=== PATIENT | male | born 1935 | race Two or more races ===

== ENCOUNTER → 2017-05-20 | Outpatient (CLI) | payer MEDICARE ==
[~2017-05-20] MED LIST: ALLOPURINOL300 MG PO; DIVALPROEX SOD250 MG PO; FLUOXETINE HCL40 MG PO; FUROSEMIDE40 MG PO; LEVOTHYROXINE50 MCG PO; LEVOTHYROXINE75 MCG PO; LOSARTAN POTASS25 MG; SIMVASTATIN40 MG PO; SINEMET 25-1001 EACH PO
--- NOTE | 2017-05-28 04:13 | Pulmonary Function Test ---
DATE OF STUDY: May 20, 2017 SPIROMETRY: Demonstrates evidence of moderate restriction. FEV1 was 1.54 L or 69% predicted, and FVC was 2.06 L or 64% predicted in the setting of normal FEV1 over FVC ratio. After bronchodilator administration, there was no statistically significant change in spirometry. Borderline loops were limited. LUNG VOLUMES: As performed by nitrogen washout method demonstrated decreased total lung capacity consistent with restriction. The TLC was 4.46 L or 74% predicted. Restrictive effective obesity is suggested with decreased of 15%. ADDITIONAL NOTE: Spirometry with limited effort, which may limit the interpretation of restriction on this test. SUMMARY: Moderate restriction. Mild limitation in technique is noted. Clinical correlation is recommended. Repeat pulmonary function testing may be performed if indicated. Job#: [id number] CT
== END ==
LOC: RESP 08:03
PROVIDERS: ATTEND Internal Medicine Critical Care Medicine
DX: J44.9 Chronic obstructive pulmonary disease, unspecified (principal); R53.1 Weakness; N19 Unspecified kidney failure; E87.70 Fluid overload, unspecified; R09.02 Hypoxemia; H61.22 Impacted cerumen, left ear; E66.9 Obesity, unspecified; G47.33 Obstructive sleep apnea (adult) (pediatric)
CPT/HCPCS: 94060; 94727

== ENCOUNTER 2018-04-02 12:38 | Emergency (ER) | payer MEDICARE ==
[~2018-04-02] VITALS: Ht 165.1 cm; Wt 90.7 kg
--- NOTE | 2018-04-02 14:42 | Diagnostic Imaging Report ---
CERVICAL SPINE X-RAY - 3 VIEWS HISTORY: ^[id number] ^[id number] COMPARISON: None available. FINDINGS: Bones: No acute displaced fracture. Osseous alignment is within normal limits. Joints: Advanced multilevel degenerative changes of the cervical spine. Soft tissues: Soft tissue swelling around the neck. No radiopaque foreign body overlying the neck or airway. IMPRESSION: Diffuse soft tissue swelling along the right and left side of the neck of uncertain etiology. No radiopaque foreign body. Signed by: Dr. Shayy Nick M.D. on 04/02/2018 2:39 PM
--- NOTE | 2018-04-02 15:09 | Diagnostic Imaging Report ---
EXAMINATION: CXR 2 VIEW - HOPD INDICATION: ^[id number] ^[id number] COMPARISON: None FINDINGS: PA and lateral views TUBES and LINES: None. LUNGS: Lungs are well inflated. Bilateral interstitial edema. Bandlike opacities in both lower lobes suggestive of atelectasis. PLEURA: No pleural effusion or pneumothorax. HEART AND MEDIASTINUM: Mild enlargement of the cardiac silhouette. Pulmonary arteries are enlarged and suggestive of pulmonary hypertension. Tortuous thoracic aorta with possible ectasia of the ascending segment. BONES AND SOFT TISSUES: No acute osseous lesion. Soft tissues are unremarkable. UPPER ABDOMEN: No free air under the diaphragm. IMPRESSION: Bilateral interstitial edema. Bibasilar atelectasis. Signed by: Dr. Shayy Nick M.D. on 04/02/2018 3:06 PM
[2018-04-02 15:29] VITALS: BP 142/88
== END 2018-04-02 15:31 | disposition home or self-care (01) ==
LOC: FSED 12:38
DX: J04.0 Acute laryngitis (principal)
CPT/HCPCS: 71046; 72040; 83518; 99283

== ENCOUNTER 2018-08-25 01:10 | Inpatient (IN) | payer MEDICARE ==
[2018-08-25] VITALS (25 sets, daily range): BP systolic 102–203; BP diastolic 49–86
[~2018-08-25] VITALS: Ht 165.1 cm; Wt 90.7 kg
--- NOTE | 2018-08-25 01:10 | NUR ---
SEE CODE SHEET ON CHART.
--- OUTSIDE RECORDS SUMMARY | 2018-08-25 01:13 | XMS REPORT ---
Author Author [facility] Address Unknown Phone Unavailable Care Team Providers Care Receiving Operator Name Role Phone Germán BRAVO Unavailable Unavailable Payers Payer Name Policy Type Policy Number Effective Date Expiration Date Problems This patient has no known problems. Allergies, Adverse Reactions, Alerts Allergy Name Allergy Type Status Severity Reaction(s) Onset Date Inactive Date Treating Clinician Comments No Known Allergies DA Active U 2018-04-16 00:00:00 Medications This patient has no known medications. Results Test Description Test Time Test Comments Text Results Atomic Results Result Comments CBC W/AUTO DIFF 2018-04-19 14:06:00 WHITE BLOOD CELL (test code=WBC) 16.16 x10 3/uL 4.5-11.0 RED BLOOD CELL (test code=RBC) 2.47 x10 6/uL 4.00-5.60 HEMOGLOBIN (test code=HGB) 7.2 g/dL 12.5-16.9 HEMATOCRIT (test code=HCT) 25.9 % 37.5-50.7 MEAN CELL VOLUME (test code=MCV) 104.9 fL 81.0-99.0 MEAN CELL HGB (test code=MCH) 29.1 pg 27.0-33.0 MEAN CELL HGB CONCETRATION (test code=MCHC) 27.8 g/dL 33.0-37.0 RED CELL DISTRIBUTION WIDTH CV (test code=RDW) 15.3 % 11.5-14.5 RED CELL DISTRIBUTION WIDTH SD (test code=RDW-SD) 59.0 fL 37.0-54.0 PLATELET COUNT (test code=PLT) 133 x10 3/uL 150-400 IMMATURE PLATELET FRACTION (test code=IPF) 8.2 % 0.9-11.2 MEAN PLATELET VOLUME (test code=MPV) 13.1 fL 7.0-9.0 MANUAL DIFF REQUIRED (test code=MDIFF) YES WBC [id number] 14:06:00* Test Item Value Reference Range Comments SEGMENTED NEUTROPHILS (test code=SEG) 69.4 % 37-69 LYMPHOCYTE (test code=LYMPH) 27.0 % 23-55 REACTIVE LYMPH (test code=RELYMPH) 1.8 % MONOCYTE (test code=MON) 1.8 % 0-10 POIKILOCYTOSIS (test code=POIK) 1+ ANISOCYTOSIS (test code=ANISO) 2+ OVALOCYTES (test code=OVAL) 1+ PLATELET ESTIMATE (test code=PLTEST) Adequate THOUSAND ADEQUATE PLT.EST.(140-175) PLATELET MORPHOLOGY (test code=PLTMORPH) LARGE PLATELETS CBC W/AUTO [id number] 14:03:00* Test Item Value Reference Range Comments WHITE BLOOD CELL (test code=WBC) 16.16 x10 3/uL 4.5-11.0 RED BLOOD CELL (test code=RBC) 2.47 x10 6/uL 4.00-5.60 HEMOGLOBIN (test code=HGB) 7.2 g/dL 12.5-16.9 HEMATOCRIT (test code=HCT) 25.9 % 37.5-50.7 MEAN CELL VOLUME (test code=MCV) 104.9 fL 81.0-99.0 MEAN CELL HGB (test code=MCH) 29.1 pg 27.0-33.0 MEAN CELL HGB CONCETRATION (test code=MCHC) 27.8 g/dL 33.0-37.0 RED CELL DISTRIBUTION WIDTH CV (test code=RDW) 15.3 % 11.5-14.5 RED CELL DISTRIBUTION WIDTH SD (test code=RDW-SD) 59.0 fL 37.0-54.0 PLATELET COUNT (test code=PLT) 133 x10 3/uL 150-400 IMMATURE PLATELET FRACTION (test code=IPF) 8.2 % 0.9-11.2 MEAN PLATELET VOLUME (test code=MPV) 13.1 fL 7.0-9.0 MANUAL DIFF REQUIRED (test code=MDIFF) YES WBC [id number] 14:03:00* Test Item Value Reference Range Comments ANISOCYTOSIS (test code=ANISO) PLATELET ESTIMATE (test code=PLTEST) THOUSAND ADEQUATE CBC W/AUTO [id number] 14:03:00* Test Item Value Reference Range Comments WHITE BLOOD CELL (test code=WBC) 16.16 x10 3/uL 4.5-11.0 RED BLOOD CELL (test code=RBC) 2.47 x10 6/uL 4.00-5.60 HEMOGLOBIN (test code=HGB) 7.2 g/dL 12.5-16.9 HEMATOCRIT (test code=HCT) 25.9 % 37.5-50.7 MEAN CELL VOLUME (test code=MCV) 104.9 fL 81.0-99.0 MEAN CELL HGB (test code=MCH) 29.1 pg 27.0-33.0 MEAN CELL HGB CONCETRATION (test code=MCHC) 27.8 g/dL 33.0-37.0 RED CELL DISTRIBUTION WIDTH CV (test code=RDW) 15.3 % 11.5-14.5 RED CELL DISTRIBUTION WIDTH SD (test code=RDW-SD) 59.0 fL 37.0-54.0 PLATELET COUNT (test code=PLT) 133 x10 3/uL 150-400 IMMATURE PLATELET FRACTION (test code=IPF) 8.2 % 0.9-11.2 MEAN PLATELET VOLUME (test code=MPV) 13.1 fL 7.0-9.0 MANUAL DIFF REQUIRED (test code=MDIFF) YES WBC [id number] 14:03:00* Test Item Value Reference Range Comments ANISOCYTOSIS (test code=ANISO) PLATELET ESTIMATE (test code=PLTEST) THOUSAND ADEQUATE B-TYPE NATRIURETIC [id number] 12:47:00* Test Item Value Reference Range Comments B-TYPE NATRIURETIC PEPTIDE (test code=BNP) 56.1 PG/ML 0-100 [id number] 12:11:00* Test Item Value Reference Range Comments TROPONIN-I (test code=TROPI) < 0.015 ng/mL 0.000-0.045 Negative: <=0.045 Positive: >=0.046 Correlation with serial results, other cardiac markers andclinical findings is necessary to determine the clinicalsignificance of this result. Results using different methodologies should not be comparedto one another as quantitative results may vary by method. ARTERIAL BLOOD [id number] 11:32:00* Test Item Value Reference Range Comments ARTERIAL BLOOD GAS PH (test code=PHA) 7.320 7.35-7.45 ARTERIAL BLOOD GAS PCO2 (test code=PCO2A) 48.3 mmHg 35-45 ARTERIAL BLOOD GAS PO2 (test code=PO2A) 131 mmHg 80-100 BICARBONATE TOTAL HCO3 (test code=HCO3) 24.9 mmol/L 22.0-26.0 BASE EXCESS (test code=MICHAEL) -1.0 mmol/L -4-4 ABG O2 SATURATION (test code=SATA) 99 % 90-100 FIO2 (test code=FIO2A) 100 % ABG DELIVERY (test code=RUDI) Bipap ABG VENT RESP RATE (test code=RRA) 12 /MIN Performed by certified shotgun shell reprinting unit operator at [facility] ABG TEMPERATURE (test code=TEMPA) 98.6 F ABG SITE (test code=SITEA) R Rad PREDICTED AA GRADIENT (test code=AP) 170 PREDICTED PO2 (test code=OP) 485 a/A RATIO (test code=RATIO) 0.20 TCO2 ARTERIAL (test code=TCO2A) 26 A-A GRADIENT (test code=AAGRADE) 524 - XR CHEST 1 [id number] 10:10:00 FAX: Rhett Mc MD [phone] [place]: St: ADM FAX: Дмитрий Bear MD [phone] FAX: Nasima Beaver MD [phone] Name: ANIKA CELESTIN [facility] : 1935 Age/S: 82/M [address] [place] [address] Unit #: [id number] Loc: [address] [place] [address] Phys: Rhett Resendiz MD Acct: [id number] Dis Date: Status: ADM IN ONE #: [phone] Exam Date: 04/19/2018 1005 FAX #: [phone] Reason: sob EXAMS: CPT CODE: [id number] XR CHEST 1 V [id number] EXAM: CHEST SI NGLE VIEW HISTORY: 82-year-old male with shortness of breath COMPARISON: CT chest 04/17/2018, chest radiograph 04/16/2018 FINDINGS: Persistent elevation of the right hemidiaphragm with mild right basilar opacity. Increased opacity in the left lung base. Mild bilateral interstitial prominence, increased from prior exam. The cardiomediastinal silhouette is stably prominent. Osseous structures are unchanged. IMPRESSION: 1. Bibasilar atelectasis/consolidation, increased in the left lung base. 2. Bilateral interstitial pro minence as can be seen with congestion/edema, or atypical infection. SL: [id number] at 1010 Reported and bill d by: Byron Calderon M.D. CC: Rhett Resendiz MD; Дмитрий Garcia MD; Tracey Whitt MD Technologist: RT Andrew(R) Trnscrd Date/Time/By: 04/19/2018 (1010) : By: [email or web address] Orig P rint D/T: S: 04/19/2018 (1014) PAGE 1 Signed Report CBC W/AUTO [id number] 09:44:00* Test Item Value Reference Range Comments WHITE BLOOD CELL (test code=WBC) 16.16 x10 3/uL 4.5-11.0 RED BLOOD CELL (test code=RBC) 2.47 x10 6/uL 4.00-5.60 HEMOGLOBIN (test code=HGB) 7.2 g/dL 12.5-16.9 HEMATOCRIT (test code=HCT) 25.9 % 37.5-50.7 MEAN CELL VOLUME (test code=MCV) 104.9 fL 81.0-99.0 MEAN CELL HGB (test code=MCH) 29.1 pg 27.0-33.0 MEAN CELL HGB CONCETRATION (test code=MCHC) 27.8 g/dL 33.0-37.0 RED CELL DISTRIBUTION WIDTH CV (test code=RDW) 15.3 % 11.5-14.5 RED CELL DISTRIBUTION WIDTH SD (test code=RDW-SD) 59.0 fL 37.0-54.0 PLATELET COUNT (test code=PLT) 133 x10 3/uL 150-400 IMMATURE PLATELET FRACTION (test code=IPF) 8.2 % 0.9-11.2 MEAN PLATELET VOLUME (test code=MPV) 13.1 fL 7.0-9.0 LYMPHOCYTE % (test code=LY%) % 14.0-32.0 MANUAL DIFF REQUIRED (test code=MDIFF) BASIC METABOLIC [id number] 08:18:00* Test Item Value Reference Range Comments SODIUM (test code=NA) 140 mEq/L 134-147 POTASSIUM (test code=K) 5.2 mEq/L 3.4-5.0 CHLORIDE (test code=CL) 105 mEq/L 100-108 CARBON DIOXIDE (test code=CO2) 28 mEq/L 21-33 ANION GAP (test code=GAP) 12 0-20 GLUCOSE (test code=GLU) 185 mg/dL 70-110 BLOOD UREA NITROGEN (test code=BUN) 80 mg/dL 7-18 GLOMERULAR FILTRATION RATE (test code=GFR) 22.6 70-80 Units of measure=ml/min/1.73 m2 CREATININE (test code=CREAT) 2.7 mg/dL 0.6-1.3 CALCIUM (test code=CA) 8.6 mg/dL 8.0-10.5 ARTERIAL BLOOD [id number] 07:46:00* Test Item Value Reference Range Comments ARTERIAL BLOOD GAS PH (test code=PHA) 7.306 7.35-7.45 ARTERIAL BLOOD GAS PCO2 (test code=PCO2A) 54.3 mmHg 35-45 ARTERIAL BLOOD GAS PO2 (test code=PO2A) 32 mmHg 80-100 BICARBONATE TOTAL HCO3 (test code=HCO3) 27.1 mmol/L 22.0-26.0 BASE EXCESS (test code=MICHAEL) 1.0 mmol/L -4-4 ABG O2 SATURATION (test code=SATA) 55 % 90-100 FIO2 (test code=FIO2A) 90 % ABG DELIVERY (test code=RUDI) Bipap ABG VENT RESP RATE (test code=RRA) 16 /MIN Performed by certified shotgun shell reprinting unit operator at [facility] ABG TEMPERATURE (test code=TEMPA) 98.6 F ABG SITE (test code=SITEA) R Rad PREDICTED AA GRADIENT (test code=AP) 149 PREDICTED PO2 (test code=OP) 427 a/A RATIO (test code=RATIO) 0.06 TCO2 ARTERIAL (test code=TCO2A) 29 A-A GRADIENT (test code=AAGRADE) 545 ARTERIAL BLOOD [id number] 05:57:00* Test Item Value Reference Range Comments ARTERIAL BLOOD GAS PH (test code=PHA) 7.337 7.35-7.45 ARTERIAL BLOOD GAS PCO2 (test code=PCO2A) 47.3 mmHg 35-45 ARTERIAL BLOOD GAS PO2 (test code=PO2A) 65 mmHg 80-100 BICARBONATE TOTAL HCO3 (test code=HCO3) 25.4 mmol/L 22.0-26.0 BASE EXCESS (test code=MICHAEL) -1.0 mmol/L -4-4 ABG O2 SATURATION (test code=SATA) 91 % 90-100 FIO2 (test code=FIO2A) 60 % ABG DELIVERY (test code=RUDI) Cpap Performed by certified shotgun shell reprinting unit operator at [facility] ABG TEMPERATURE (test code=TEMPA) 98.0 F ABG SITE (test code=SITEA) L Rad PREDICTED AA GRADIENT (test code=AP) 96 PREDICTED PO2 (test code=OP) 275 a/A RATIO (test code=RATIO) 0.18 TCO2 ARTERIAL (test code=TCO2A) 27 A-A GRADIENT (test code=AAGRADE) 306 CBC W/AUTO [id number] 12:09:00* Test Item Value Reference Range Comments WHITE BLOOD CELL (test code=WBC) 14.88 x10 3/uL 4.5-11.0 RED BLOOD CELL (test code=RBC) 2.48 x10 6/uL 4.00-5.60 HEMOGLOBIN (test code=HGB) 7.4 g/dL 12.5-16.9 HEMATOCRIT (test code=HCT) 26.2 % 37.5-50.7 MEAN CELL VOLUME (test code=MCV) 105.6 fL 81.0-99.0 MEAN CELL HGB (test code=MCH) 29.8 pg 27.0-33.0 MEAN CELL HGB CONCETRATION (test code=MCHC) 28.2 g/dL 33.0-37.0 RED CELL DISTRIBUTION WIDTH CV (test code=RDW) 15.3 % 11.5-14.5 RED CELL DISTRIBUTION WIDTH SD (test code=RDW-SD) 58.9 fL 37.0-54.0 PLATELET COUNT (test code=PLT) 136 x10 3/uL 150-400 MEAN PLATELET VOLUME (test code=MPV) 12.7 fL 7.0-9.0 MANUAL DIFF REQUIRED (test code=MDIFF) YES WBC [id number] 12:09:00* Test Item Value Reference Range Comments SEGMENTED NEUTROPHILS (test code=SEG) 66.4 % 37-69 LYMPHOCYTE (test code=LYMPH) 31.8 % 23-55 MYELOCYTE (test code=MYELO) 1.8 % 0.0-0.0 POLYCHROMASIA (test code=POLC) 1+ HYPOCHROMIA (test code=HYPO) SLIGHT POIKILOCYTOSIS (test code=POIK) 1+ FEW ELLIPTOCYTES SEEN BASOPHILIC STIPPLING (test code=STP) FEW ANISOCYTOSIS (test code=ANISO) 1+ MACROCYTOSIS (test code=MACR) 1+ TARGET CELLS (test code=TGT) FEW TEAR DROP CELLS (test code=TEAR) 1+ SCHISTOCYTES (test code=PRIYANK) FEW STOMATOCYTES (test code=STO) FEW TOXIC GRANULATION (test code=TOX) SLIGHT PLATELET ESTIMATE (test code=PLTEST) Adequate THOUSAND ADEQUATE PLATELET MORPHOLOGY (test code=PLTMORPH) LARGE PLATELETS LARGE PLTS SEEN PLT AGGREGATES: SLIGHT LACTIC DEHYDROGENASE(LDH)2018-04-18 12:06:00* Test Item Value Reference Range Comments LACTIC DEHYDROGENASE(LDH) (test code=LDH) 252 IUnits/L 87-241 CBC W/AUTO [id number] 12:03:00* Test Item Value Reference Range Comments WHITE BLOOD CELL (test code=WBC) 14.88 x10 3/uL 4.5-11.0 RED BLOOD CELL (test code=RBC) 2.48 x10 6/uL 4.00-5.60 HEMOGLOBIN (test code=HGB) 7.4 g/dL 12.5-16.9 HEMATOCRIT (test code=HCT) 26.2 % 37.5-50.7 MEAN CELL VOLUME (test code=MCV) 105.6 fL 81.0-99.0 MEAN CELL HGB (test code=MCH) 29.8 pg 27.0-33.0 MEAN CELL HGB CONCETRATION (test code=MCHC) 28.2 g/dL 33.0-37.0 RED CELL DISTRIBUTION WIDTH CV (test code=RDW) 15.3 % 11.5-14.5 RED CELL DISTRIBUTION WIDTH SD (test code=RDW-SD) 58.9 fL 37.0-54.0 PLATELET COUNT (test code=PLT) 136 x10 3/uL 150-400 MEAN PLATELET VOLUME (test code=MPV) 12.7 fL 7.0-9.0 MANUAL DIFF REQUIRED (test code=MDIFF) YES WBC [id number] 12:03:00* Test Item Value Reference Range Comments ANISOCYTOSIS (test code=ANISO) PLATELET ESTIMATE (test code=PLTEST) THOUSAND ADEQUATE CBC W/AUTO [id number] 12:03:00* Test Item Value Reference Range Comments WHITE BLOOD CELL (test code=WBC) 14.88 x10 3/uL 4.5-11.0 RED BLOOD CELL (test code=RBC) 2.48 x10 6/uL 4.00-5.60 HEMOGLOBIN (test code=HGB) 7.4 g/dL 12.5-16.9 HEMATOCRIT (test code=HCT) 26.2 % 37.5-50.7 MEAN CELL VOLUME (test code=MCV) 105.6 fL 81.0-99.0 MEAN CELL HGB (test code=MCH) 29.8 pg 27.0-33.0 MEAN CELL HGB CONCETRATION (test code=MCHC) 28.2 g/dL 33.0-37.0 RED CELL DISTRIBUTION WIDTH CV (test code=RDW) 15.3 % 11.5-14.5 RED CELL DISTRIBUTION WIDTH SD (test code=RDW-SD) 58.9 fL 37.0-54.0 PLATELET COUNT (test code=PLT) 136 x10 3/uL 150-400 MEAN PLATELET VOLUME (test code=MPV) 12.7 fL 7.0-9.0 MANUAL DIFF REQUIRED (test code=MDIFF) YES WBC [id number] 12:03:00* Test Item Value Reference Range Comments ANISOCYTOSIS (test code=ANISO) PLATELET ESTIMATE (test code=PLTEST) THOUSAND ADEQUATE T4 [id number] 11:33:00* Test Item Value Reference Range Comments T4 FREE (test code=T4F) 0.7 ng/dL 0.77-1.61 COMMENTS: ADD ON TO BLOOD IN LAB. 3/4 AM OK.CBC W/AUTO [id number] 10:52:00* Test Item Value Reference Range Comments WHITE BLOOD CELL (test code=WBC) 14.91 x10 3/uL 4.5-11.0 RED BLOOD CELL (test code=RBC) 2.57 x10 6/uL 4.00-5.60 HEMOGLOBIN (test code=HGB) 7.7 g/dL 12.5-16.9 HEMATOCRIT (test code=HCT) 26.8 % 37.5-50.7 MEAN CELL VOLUME (test code=MCV) 104.3 fL 81.0-99.0 MEAN CELL HGB (test code=MCH) 30.0 pg 27.0-33.0 MEAN CELL HGB CONCETRATION (test code=MCHC) 28.7 g/dL 33.0-37.0 RED CELL DISTRIBUTION WIDTH CV (test code=RDW) 15.8 % 11.5-14.5 RED CELL DISTRIBUTION WIDTH SD (test code=RDW-SD) 59.3 fL 37.0-54.0 PLATELET COUNT (test code=PLT) 140 x10 3/uL 150-400 MEAN PLATELET VOLUME (test code=MPV) 12.7 fL 7.0-9.0 MANUAL DIFF REQUIRED (test code=MDIFF) YES PATHOLOGISTS [id number] 10:52:00* Test Item Value Reference Range Comments PATHOLOGISTS FINDINGS (test code=PATH FIND) ... ATYPICAL, IMMATURE CELLS; RECOMMEND FLOW CYTOMETRY STUDYAND HEMATOLOGY CONSULTATION. REVIEWED BY DR. JYOTI LAWSON MD WBC [id number] 10:52:00* Test Item Value Reference Range Comments SEGMENTED NEUTROPHILS (test code=SEG) 24 % 37-69 LYMPHOCYTE (test code=LYMPH) 70 % 23-55 MONOCYTE (test code=MON) 4 % 0-10 EOSINOPHIL (test code=EOS) 2 % 0.0-4.0 POLYCHROMASIA (test code=POLC) 1+ HYPOCHROMIA (test code=HYPO) SLIGHT POIKILOCYTOSIS (test code=POIK) 1+ ANISOCYTOSIS (test code=ANISO) 1+ MACROCYTOSIS (test code=MACR) 1+ SCHISTOCYTES (test code=PRIYANK) RARE MORPHOLOGY COMMENT (test code=MOC) FEW ELLIPTOCYTES PLATELET ESTIMATE (test code=PLTEST) Slightly Decreased THOUSAND ADEQUATE PLATELET MORPHOLOGY (test code=PLTMORPH) LARGE PLATELETS - PULM VENT PERF [id number] 10:03:00 FAX: Дмитрий Bear MD [phone] [place]: St: ADM FAX: Yannick Negrete MD [phone] FAX: Nasima Beaver MD [phone] Name: ANIKA CELESTIN [facility] : 1935 Age/S: 82/M [address] [place] [address] Unit #: [id number] Loc: [address] [address] Phys: Yannick Aldrich MD Acct: [id number] Dis Date: Status: ADM IN ONE #: [phone] Exam Date: 04/18/2018 0951 FAX #: [phone] Reason: rule out p.e. EXAMS: CPT CODE: [id number] PU LM VENT PERF IMAG [id number] PROCEDURE: NUC [facility] MEDICINE VENTILATION/PERFUSION SCAN INDICATION: 82-year-old m gin with chest pain and shortness of breath COMPARISON: CT chest . TECHNIQUE: 10 mCi xenon-133 gas inhaled for ventil ation study. 5 mCi Tc 99m MAA administered intravenously via left antecubi tamlea fossa IV for perfusion study. FINDINGS: VENTILATI ON: Homogeneous and symmetric. Defect noted in the right lung base. No s ignificant air trapping. PERFUSION: Homogeneous and symmetric. N onsegmental defect noted in the right lung base. No segmental or subsegme ntal perfusion defects. CHEST RADIOGRAPH: Elevated right hemidiaph ragm. Subsegmental atelectasis in the right lung base. Otherwise unremar kable. IMPRESSION: 1. Nonsegmental matched def ect in the right lung base likely related to elevated right hemidiaphrag m and right basilar subsegmental atelectasis. 2. Low probabilit y for pulmonary embolus. SL: [id number] at 1003 Reported and signed by: Byron Calderon M.D. CC: Дмитрий Garcia MD; Chance Aldrich MD; Nasima Whitt MD Technologist: Kym Amanda [facility] Trnscrd Date/Time/By: 04/18/2018 (1003) : By: SkylaR H17 Orig Print D/T: S: 04/18/2018 (1006) PAGE 1 Signed Report B-TYPE NATRIURETIC [id number] 09:43:00* Test Item Value Reference Range Comments B-TYPE NATRIURETIC PEPTIDE (test code=BNP) 139.7 PG/ML 0-100 BASIC METABOLIC [id number] 08:57:00* Test Item Value Reference Range Comments SODIUM (test code=NA) 141 mEq/L 134-147 POTASSIUM (test code=K) 5.2 mEq/L 3.4-5.0 CHLORIDE (test code=CL) 107 mEq/L 100-108 CARBON DIOXIDE (test code=CO2) 27 mEq/L 21-33 ANION GAP (test code=GAP) 12 0-20 GLUCOSE (test code=GLU) 202 mg/dL 70-110 BLOOD UREA NITROGEN (test code=BUN) 58 mg/dL 7-18 GLOMERULAR FILTRATION RATE (test code=GFR) 25.9 70-80 Units of measure=ml/min/1.73 m2 CREATININE (test code=CREAT) 2.4 mg/dL 0.6-1.3 CALCIUM (test code=CA) 8.4 mg/dL 8.0-10.5 LIPID PROFILE (CORONARY RISK)2018-04-18 08:57:00* Test Item Value Reference Range Comments TRIGLYCERIDES (test code=TRIG) 112 mg/dL 40-150 CHOLESTEROL (test code=CHOL) 164 mg/dL <200 CHOLESTEROL/HDL RATIO (test code=CHOLHDL) 3.42 RATIO 3.43-4.97 RISK ASSOCIATED WITH CHOL/HDL RATIOS: RISK MALE FEMALE1/2 AVERAGE 3.43 3.27AVERAGE 4.97 4.442X AVERAGE 9.55 7.053X AVERAGE 23.39 11.04 NOTE THAT THE REFERENCE VALUE IS RELATEDTO RISK LEVELS RECOMMENDED BY THE NATL.HEART, LUNG, AND BLOOD INST. HDL CHOLESTEROL (test code=HDL) 48.0 mg/dL 32-72 LIPOPROTEIN LDL (test code=LDL) 102 mg/dL 0-100 <100 [id number] NEAR OPTIMAL/ABOVE [id number] [id number] HIGH>IR=996 VERY HIGH*Guidelines provided by the National Cholesterol EducationProgram Adult Treatment Panel III HGBA1C%2018-04-18 08:53:00* Test Item Value Reference Range Comments HGBA1C% (test code=HGBA1C%) 6.5 %A1C 4.8-6.0 CBC W/AUTO [id number] 08:37:00* Test Item Value Reference Range Comments WHITE BLOOD CELL (test code=WBC) 14.88 x10 3/uL 4.5-11.0 RED BLOOD CELL (test code=RBC) 2.48 x10 6/uL 4.00-5.60 HEMOGLOBIN (test code=HGB) 7.4 g/dL 12.5-16.9 HEMATOCRIT (test code=HCT) 26.2 % 37.5-50.7 MEAN CELL VOLUME (test code=MCV) 105.6 fL 81.0-99.0 MEAN CELL HGB (test code=MCH) 29.8 pg 27.0-33.0 MEAN CELL HGB CONCETRATION (test code=MCHC) 28.2 g/dL 33.0-37.0 RED CELL DISTRIBUTION WIDTH CV (test code=RDW) 15.3 % 11.5-14.5 RED CELL DISTRIBUTION WIDTH SD (test code=RDW-SD) 58.9 fL 37.0-54.0 PLATELET COUNT (test code=PLT) 136 x10 3/uL 150-400 MEAN PLATELET VOLUME (test code=MPV) 12.7 fL 7.0-9.0 LYMPHOCYTE % (test code=LY%) % 14.0-32.0 MANUAL DIFF REQUIRED (test code=MDIFF) [id number] 08:20:00* Test Item Value Reference Range Comments GLUBED (test code=GLUBED) 201 MG/DL 70-110 Performed by certified shotgun shell reprinting unit operator at [facility] ARTERIAL BLOOD [id number] 06:35:00* Test Item Value Reference Range Comments ARTERIAL BLOOD GAS PH (test code=PHA) 7.316 7.35-7.45 ARTERIAL BLOOD GAS PCO2 (test code=PCO2A) 51.3 mmHg 35-45 ARTERIAL BLOOD GAS PO2 (test code=PO2A) 55 mmHg 80-100 BICARBONATE TOTAL HCO3 (test code=HCO3) 26.3 mmol/L 22.0-26.0 BASE EXCESS (test code=MICHAEL) 0.0 mmol/L -4-4 ABG O2 SATURATION (test code=SATA) 86 % 90-100 ABG DELIVERY (test code=RUDI) Cannula ABG TEMPERATURE (test code=TEMPA) 98.0 F ABG SITE (test code=SITEA) L Rad TCO2 ARTERIAL (test code=TCO2A) 28 - CT CHEST W/O [id number] 21:06:00 Name: ANIKA CELESTIN [facility] : 1935 Age/S: 82 / M [address] [place] [address] Unit #: [id number] Loc: [place] [address] Phys: Yannick Aldrich MD Acct: [id number] Dis Date: Status: ADM IN PHONE #: [phone] Exam Date: 04/17/20182010 FAX #: [phone] Reason: copd pneumonia EXAMS: CPT CODE: [id number] CT CHEST W/O CONTRAST 07443 PROCEDURE: CT CHEST WITHOUT CONTRAST 04/17/2018 INDICATION: COPD. Pneumonia. COMPARISON: Chest one view 04/16/2018 TECHNIQUE: Noncontrasted helical imaging performed apices through the lung bases with axial and coronal reformations. ADMINISTERED CONTRAST: None. DLP: 425.28 mGy-cm FINDINGS: LUNGS: Scattered bilateral platelike atelectasis are seen with confluent atelectasis or consolidation in the right middle lobe as well as bilateral central bronchial wall thickening. No endobronchial filling defects. Patchy groundglass lung density is seen probably representing a combination of respiratory motion and hypoventilation. Old granulomatous disease. No pleural effusions. MEDIASTINUM: Cardiomegaly with severe multivessel coronary, mitral annulus and aortic root calcification. No pericardial thickening or effusion. No adenopathy. UPPER ABDOMEN: No acute upper abdominal findings along the visualized segments. Moderate aortic calcification without aneurysm MUSCULO SKELETAL: Severe thoracic spondylosis without destructive bone lesions. I ncidental bilateral gynecomastia. IMPRESSION: 1. Scatter ed bilateral platelike atelectasis with confluent atelectasis or consoli dation in the right middle lobe. 2. Acute on chronic bronchitis. 3. Cardiomegaly and severe atherosclerosis. 4. No acute upper abdominal findings. 5. Bilateral gynecomastia. ____ CT i maging performed at this location utilizes radiation dose optimization t echniques which include one or more of the following: -Automated exposur e control -Adjustment of the mA and/or kV according to patient size -Use of iterative reconstruction technique PAGE 1 Signed Report (CONTINUED) Name: ANIKA CELESTIN [facility] : 1935 Age/S: 82 / M [address] [place] [address] Bl Unit #: [id number] Loc: [place] [address] Phys: Yannick Aldrich MD Acct: [id number] Dis Date: Status: ADM IN PHONE #: [phone] Exam Date: 04/17/20182010 FAX #: [phone] Reason: copd pn eumonia EXAMS: CPT CODE: [id number] CT CHEST W/O CONTRAST 42230 <Continued> SL: ER-H at 2106 Reported and signed by: Edy Tracy M.D. CC: Дмитрий Garcia MD; Yannick Aldrich MD; Nasima Whitt MD Technologist:Milton Stokes, RT(R)(CT) CTDI: DLP: Trnscb Date/Time: 04/17/2018 (2105) [email or web address] Orig Print D/T: S: 04/17/2018 (2108) CTDI: DLP: PAGE 2 Signed Report UR SODIUM [id number] 18:05:00* Test Item Value Reference Range Comments UR SODIUM RANDOM (test code=KEVIN) 20 MEQ/L The Reference Range and Method Performance specificationshave not been established for this fluid. The test resultshould be correlated into the clinical context forinterpretation. UR CREATININE [id number] 18:05:00* Test Item Value Reference Range Comments UR CREATININE RANDOM (test code=CREATU) 96.1 mg/dL The Reference Range and Method Performance specificationshave not been established for this fluid. The test resultshould be correlated into the clinical context forinterpretation. TOTAL IRON BINDING [id number] 11:21:00* Test Item Value Reference Range Comments SERUM IRON (test code=IRON) 76 mcg/dL 35-150 TOTAL IRON BINDING CAPACITY (test code=TIBC) 377 mcg/dL 260-445 UIBC (test code=UIBC) 301 mcg/dL IRON SATURATION (test code=FESAT) 20.2 % 14-34 VITAMIN [id number] 11:21:00* Test Item Value Reference Range Comments VITAMIN B12 (test code=VITB12) 472 pg/mL 193-986 FOLIC [id number] 11:21:00* Test Item Value Reference Range Comments FOLIC ACID (test code=FOL) 43.5 ng/mL 3.1-17.5 [id number] 11:21:00* Test Item Value Reference Range Comments FERRITIN (test code=KULDIP) 70.2 ng/mL 23.9-336.2 THYROID STIMULATING [id number] 08:52:00* Test Item Value Reference Range Comments THYROID STIMULATING HORMONE (test code=TSH) 13.30 0.42-5.47 Results in mayra- International Units/mL COMMENTS: 3 troponins total (including troponin done in ED)[id number] 08:52:00* Test Item Value Reference Range Comments TROPONIN-I (test code=TROPI) < 0.015 ng/mL 0.000-0.045 Negative: <=0.045 Positive: >=0.046 Correlation with serial results, other cardiac markers andclinical findings is necessary to determine the clinicalsignificance of this result. Results using different methodologies should not be comparedto one another as quantitative results may vary by method. COMMENTS: 3 troponins total (including troponin done in ED)[id number] 03:30:00* Test Item Value Reference Range Comments TROPONIN-I (test code=TROPI) < 0.015 ng/mL 0.000-0.045 Negative: <=0.045 Positive: >=0.046 Correlation with serial results, other cardiac markers andclinical findings is necessary to determine the clinicalsignificance of this result. Results using different methodologies should not be comparedto one another as quantitative results may vary by method. COMMENTS: 3 troponins total (including troponin done in ED)CBC W/AUTO DIFF 2018-04-16 23:06:00* Test Item Value Reference Range Comments WHITE BLOOD CELL (test code=WBC) 14.91 x10 3/uL 4.5-11.0 RED BLOOD CELL (test code=RBC) 2.57 x10 6/uL 4.00-5.60 HEMOGLOBIN (test code=HGB) 7.7 g/dL 12.5-16.9 HEMATOCRIT (test code=HCT) 26.8 % 37.5-50.7 MEAN CELL VOLUME (test code=MCV) 104.3 fL 81.0-99.0 MEAN CELL HGB (test code=MCH) 30.0 pg 27.0-33.0 MEAN CELL HGB CONCETRATION (test code=MCHC) 28.7 g/dL 33.0-37.0 RED CELL DISTRIBUTION WIDTH CV (test code=RDW) 15.8 % 11.5-14.5 RED CELL DISTRIBUTION WIDTH SD (test code=RDW-SD) 59.3 fL 37.0-54.0 PLATELET COUNT (test code=PLT) 140 x10 3/uL 150-400 MEAN PLATELET VOLUME (test code=MPV) 12.7 fL 7.0-9.0 MANUAL DIFF REQUIRED (test code=MDIFF) YES PATHOLOGISTS [id number] 23:06:00* Test Item Value Reference Range Comments PATHOLOGISTS FINDINGS (test code=PATH FIND) WBC [id number] 23:06:00* Test Item Value Reference Range Comments SEGMENTED NEUTROPHILS (test code=SEG) 24 % 37-69 LYMPHOCYTE (test code=LYMPH) 70 % 23-55 MONOCYTE (test code=MON) 4 % 0-10 EOSINOPHIL (test code=EOS) 2 % 0.0-4.0 POLYCHROMASIA (test code=POLC) 1+ HYPOCHROMIA (test code=HYPO) SLIGHT POIKILOCYTOSIS (test code=POIK) 1+ ANISOCYTOSIS (test code=ANISO) 1+ MACROCYTOSIS (test code=MACR) 1+ SCHISTOCYTES (test code=PRIYANK) RARE MORPHOLOGY COMMENT (test code=MOC) FEW ELLIPTOCYTES PLATELET ESTIMATE (test code=PLTEST) Slightly Decreased THOUSAND ADEQUATE PLATELET MORPHOLOGY (test code=PLTMORPH) LARGE PLATELETS B-TYPE NATRIURETIC [id number] 22:54:00* Test Item Value Reference Range Comments B-TYPE NATRIURETIC PEPTIDE (test code=BNP) 31.6 PG/ML 0-100 BASIC METABOLIC [id number] 22:22:00* Test Item Value Reference Range Comments SODIUM (test code=NA) 139 mEq/L 134-147 POTASSIUM (test code=K) 4.6 mEq/L 3.4-5.0 CHLORIDE (test code=CL) 103 mEq/L 100-108 CARBON DIOXIDE (test code=CO2) 31 mEq/L 21-33 ANION GAP (test code=GAP) 10 0-20 GLUCOSE (test code=GLU) 125 mg/dL 70-110 BLOOD UREA NITROGEN (test code=BUN) 53 mg/dL 7-18 GLOMERULAR FILTRATION RATE (test code=GFR) 36.1 70-80 Units of measure=ml/min/1.73 m2 CREATININE (test code=CREAT) 1.8 mg/dL 0.6-1.3 CALCIUM (test code=CA) 8.7 mg/dL 8.0-10.5 HEPATIC FUNCTION [id number] 22:22:00* Test Item Value Reference Range Comments TOTAL PROTEIN (test code=PROT) 7.6 g/dL 6.4-8.2 ALBUMIN (test code=ALB) 3.70 g/dL 3.4-5.0 BILIRUBIN TOTAL (test code=BILT) 0.50 mg/dL 0.0-1.0 BILIRUBIN DIRECT (test code=BILD) 0.10 MG/DL 0.0-0.30 BILIRUBIN INDIRECT (test code=BILIND) 0.40 MG/DL SGOT/AST (test code=AST) 25 IUnit/L 15-37 SGPT/ALT (test code=ALT) 13 IUnit/L 15-65 ALKALINE PHOSPHATASE TOTAL (test code=ALKP) 55 IUnit/L 20-125 [id number] 22:22:00* Test Item Value Reference Range Comments LIPASE (test code=LIP) 119 IUnit/L 73-393 BASIC METABOLIC [id number] 22:20:00* Test Item Value Reference Range Comments SODIUM (test code=NA) 139 mEq/L 134-147 POTASSIUM (test code=K) 4.6 mEq/L 3.4-5.0 CHLORIDE (test code=CL) 103 mEq/L 100-108 CARBON DIOXIDE (test code=CO2) 31 mEq/L 21-33 ANION GAP (test code=GAP) 10 0-20 GLUCOSE (test code=GLU) 125 mg/dL 70-110 BLOOD UREA NITROGEN (test code=BUN) 53 mg/dL 7-18 GLOMERULAR FILTRATION RATE (test code=GFR) 36.1 70-80 Units of measure=ml/min/1.73 m2 CREATININE (test code=CREAT) 1.8 mg/dL 0.6-1.3 CALCIUM (test code=CA) 8.7 mg/dL 8.0-10.5 HEPATIC FUNCTION [id number] 22:20:00* Test Item Value Reference Range Comments TOTAL PROTEIN (test code=PROT) g/dL 6.4-8.2 ALBUMIN (test code=ALB) 3.70 g/dL 3.4-5.0 BILIRUBIN TOTAL (test code=BILT) mg/dL 0.0-1.0 BILIRUBIN DIRECT (test code=BILD) 0.10 MG/DL 0.0-0.30 SGOT/AST (test code=AST) 25 IUnit/L 15-37 SGPT/ALT (test code=ALT) 13 IUnit/L 15-65 ALKALINE PHOSPHATASE TOTAL (test code=ALKP) IUnit/L 20-125 [id number] 22:20:00* Test Item Value Reference Range Comments LIPASE (test code=LIP) 119 IUnit/L 73-393 PROTHROMBIN [id number] 22:17:00* Test Item Value Reference Range Comments PROTHROMBIN TIME PATIENT (test code=PTP) 11.1 SECONDS 9.3-12.9 INTERNATIONAL NORMAL RATIO (test code=INR) 1.0 0.8-1.2 TARGET INR BY INDICATION Indication INR1. Prophylaxis of venous thrombosis 2.0 - 3.0 (orthopedic surgery), Prophylaxis of venous thrombosis (other than high-risk surgery), Treatment of Deep Vein Thrombosis/Pulmonary Embolism, Prevention of systemic embolism - Tissue heart valves, Acute Myocardial Infarction (to prevent systemic embolism), Valvular heart disease, Atrial Fibrillation, Bileaflet mechanical valve in aortic position.2. Mechanical prosthetic valves (high risk), 2.5 - 3.5 Presence of Lupus Anticoagulant or Antiphospholipid Antibodies, Prevention of systemic embolism - Acute Myocardial Infarction (to prevent recurrent infarct). THROMBOPLASTIN TIME [id number] 22:17:00* Test Item Value Reference Range Comments THROMBOPLASTIN TIME PARTIAL (test code=PTT) 27.0 Seconds 25.0-39.5 Therapeutic Range: 61.8-83.8 Sec Effective 03/15/2013 - XR CHEST 1 [id number] 22:16:00 FAX: Peter Simons MD [phone] [place]: St: [facility] FAX: Дмитрий Bear MD [phone] Name: ANIKA CELESTIN [facility] : 1935 Age/S: 82/M [address] [place] [address] Unit #: [id number] Loc: [place] [address] Phys: Peter Johnson MD Acct: [id number] Dis Date: Status: REG ER PHONE #: [phone] Exam Date: 04/16/2018 2215 FAX #: [phone] Reason: Chest Pain EXAMS: CPT CODE: [id number] XR CHEST 1 V 09939 CHEST, SINGLE VIEW HISTORY: Chest pain No comparison. FINDINGS: Right hemidiaphragm is elevated with right lung base subsegmental atelectasis. The heart is enlarged. Pulmonary vascularity is within normal limits. No significant pleural fluid. IMPRESSION: 1. Cardiomegaly. 2. Elevated right hemidiaphragm with right lung base subsegmental atelectasis. No acute lung consolidation. SL:01 at 2216 Reported and signed by: Jerrod Diaz M.D. CC: Peter Johnson MD; Дмитрий Garcia MD Technologist: Li Giles RT(R) Trnscrd Date/Time/By: 04/16/2018 (2215) : By: SkylaBOWMAN Orig Print D/T: S: 04/16/2018 (0000) PAGE 1 Signed Report CBC W/AUTO DIFF 2018-04-16 22:13:00* Test Item Value Reference Range Comments WHITE BLOOD CELL (test code=WBC) 14.91 x10 3/uL 4.5-11.0 RED BLOOD CELL (test code=RBC) 2.57 x10 6/uL 4.00-5.60 HEMOGLOBIN (test code=HGB) 7.7 g/dL 12.5-16.9 HEMATOCRIT (test code=HCT) 26.8 % 37.5-50.7 MEAN CELL VOLUME (test code=MCV) 104.3 fL 81.0-99.0 MEAN CELL HGB (test code=MCH) 30.0 pg 27.0-33.0 MEAN CELL HGB CONCETRATION (test code=MCHC) 28.7 g/dL 33.0-37.0 RED CELL DISTRIBUTION WIDTH CV (test code=RDW) 15.8 % 11.5-14.5 RED CELL DISTRIBUTION WIDTH SD (test code=RDW-SD) 59.3 fL 37.0-54.0 PLATELET COUNT (test code=PLT) 140 x10 3/uL 150-400 MEAN PLATELET VOLUME (test code=MPV) 12.7 fL 7.0-9.0 MANUAL DIFF REQUIRED (test code=MDIFF) YES WBC [id number] 22:13:00* Test Item Value Reference Range Comments ANISOCYTOSIS (test code=ANISO) PLATELET ESTIMATE (test code=PLTEST) THOUSAND ADEQUATE CBC W/AUTO [id number] 22:12:00* Test Item Value Reference Range Comments WHITE BLOOD CELL (test code=WBC) 14.91 x10 3/uL 4.5-11.0 RED BLOOD CELL (test code=RBC) 2.57 x10 6/uL 4.00-5.60 HEMOGLOBIN (test code=HGB) 7.7 g/dL 12.5-16.9 HEMATOCRIT (test code=HCT) 26.8 % 37.5-50.7 MEAN CELL VOLUME (test code=MCV) 104.3 fL 81.0-99.0 MEAN CELL HGB (test code=MCH) 30.0 pg 27.0-33.0 MEAN CELL HGB CONCETRATION (test code=MCHC) 28.7 g/dL 33.0-37.0 RED CELL DISTRIBUTION WIDTH CV (test code=RDW) 15.8 % 11.5-14.5 RED CELL DISTRIBUTION WIDTH SD (test code=RDW-SD) 59.3 fL 37.0-54.0 PLATELET COUNT (test code=PLT) 140 x10 3/uL 150-400 MEAN PLATELET VOLUME (test code=MPV) 12.7 fL 7.0-9.0 MANUAL DIFF REQUIRED (test code=MDIFF) YES WBC [id number] 22:12:00* Test Item Value Reference Range Comments ANISOCYTOSIS (test code=ANISO) PLATELET ESTIMATE (test code=PLTEST) THOUSAND ADEQUATE TROPONIN-I [id number] 22:08:00* Test Item Value Reference Range Comments TROPONIN-I RAPID (test code=TROPIRAP) 0.01 ng/mL 0.00-0.08 Performed by 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 The universal definition of AK, according to this taskforce, is defined as a typical rise and gradual fall ofcardiac biomarkers (preferably troponin) with at least onevalue above the 99th percentile of the upper reference limit (URL) together with evidence of myocardial ischemia with at least one of the following:* ischemic symptoms,* pathological Q waves on electrocardiogram (ECG),* ischemic ECG changes,* or imaging evidence of new loss of viable myocardium or new regional wall motion abnormality. An elevated troponin value alone is not sufficient todiagnose a myocardial infarction. Rather, the patient sclinical presentation (history, physical exam) and ECGshould be used in conjunction with troponin in thediagnostic evaluation of suspected myocardial infarction. Aserial sampling protocol is recommended to facilitate the identification of temporal changes in troponin levels characteristic of AK. CXR 2 VIEW - [id number] 15:04:00 [place] [address] Patient Name: ANIKA CELESTIN MR #: [id number] : 1935 Age/Sex: 82/M Req #: [id number] Adm Physician: Ordered by: ULICES BRAVO MD Report #: [id number] Location: [facility] Room/Bed: Procedure: 0216-000 6 HOPD/CXR 2 VIEW - HOPD Exam Date: 04/02/18 Exam Ti me: 1320 REPORT STATUS: Signed E XAMINATION: CXR 2 VIEW - HOPD INDICATION: [id number] COMPARISON: None FINDINGS: PA and lateral views TUBES and LINES: None. LUNGS: Lungs are well inflated. Bilateral interstitial ed vivek. Bandlike opacities in both lower lobes suggestive of atelectasis. PLEURA: No pleural effusion or pneumothorax. HEART AND MEDIASTINUM: Mild enlargement of the cardiac silhouette. Pulmonary arteries are enlarged and sug gestive of pulmonary hypertension. Tortuous thoracic aorta with possible ectas ia of the ascending segment. BONES AND SOFT TISSUES: No acute osseous lesi on. Soft tissues are unremarkable. UPPER ABDOMEN: No free air under the diaphragm. IMPRESSION: Bilateral interstitial edema. Bibasilar ate lectasis. Signed by: Dr. Shayy Nick M.D. on 04/02/2018 3:06 PM Dictated By: SHAYY NICK MD [id number] Transcribed By: FAUSTINA on 04/02/18 1 506 COPY TO: ULICES BRAVO MD SPINE 2--3 [facility] - HOPD 2018-04-02 14:38:00 [place] [address] Patient Name: ANIKA CELESTIN MR #: [id number] : 1935 Age/Sex: 82/M Req #: [id number] Adm Physician: Ordered by: ULICES BRAVO MD Report #: [id number] Location: ED Room/Bed: Procedure: 0216-000 7 HOPD/C SPINE 2--3 [facility] - HOPD Exam Date: 04/02/18 Exam Time: 1340 REPORT STATUS: Sign ed CERVICAL SPINE X-RAY - 3 VIEWS HISTORY: [id number] 134 0 COMPARISON: None available. FINDINGS: Bones: No acute disp laced fracture. Osseous alignment is within normal limits. Joints: Ad vanced multilevel degenerative changes of the cervical spine. Soft tissues: Soft tissue swelling around the neck. No radiopaque foreign body overlying the neck or airway. IMPRESSION: Diffuse soft tissue swelling along the right and left side of the neck of uncertain etiology. No radiopaque f oreign body. Signed by: Dr. Shayy Nick M.D. on 04/02/2018 2:39 PM Dictated By: SHAYY NICK MD [id number] Transcribed By: FAUSTINA on 04/02/18 1 439 COPY TO: ULICES BRAVO MD
[2018-08-25] MEDS ORDERED: EPINEPHRINE HCL 1:1000 1ML 1 MG/ML AMP ONE (01:28)
[2018-08-25] MEDS ORDERED: SODIUM CHLORIDE 0.9% 250ML 0 ML ONE (01:29)
[2018-08-25] MEDS ORDERED: NOREPINEPHRINE 8 MG/D5W 250 ML 250 ML ONE ×2 (01:38→08:00)
[2018-08-25] MEDS ORDERED: SODIUM CHLORIDE 0.9% 100 ML ONE (01:51)
[2018-08-25] MEDS ORDERED: VASOPRESSIN INJ 20 UNIT/ML VIAL ONE (01:51)
[2018-08-25] MEDS ORDERED: SODIUM CHLORIDE 0.9% 1000ML 2,000 ML ONE (01:52)
[2018-08-25] MEDS ORDERED: NOREPINEPHRINE IV STA (01:58)
[2018-08-25] MEDS ORDERED: EPINEPHRINE HCL 1:1000 1ML 4 MG in DEXTROSE 5% 250ML 250 ML IV STA (01:58)
[2018-08-25] MEDS ORDERED: DEXTROSE 5% IV STA (01:58)
[2018-08-25] MEDS ORDERED: VASOPRESSIN 100 UNIT in DEXTROSE 5% 100ML 95 ML IV STA (01:58)
[2018-08-25] MEDS ORDERED: ALBUTEROL/IPRATROPIUM 3 ML NEB NEB ONE (02:00)
[2018-08-25] MEDS ORDERED: SODIUM CHLORIDE 0.9% 1000ML 2,000 ML IV SCH (02:00)
[2018-08-25] MEDS ORDERED: SODIUM BICARBONATE 8.4% INJ 50 ML SYR IV STA (02:01)
[2018-08-25 02:07] LABS: BASOPHILS % 0.2 % (0.0-1.0); EOSINOPHILS % 0.3 % (0.0-6.0); HEMATOCRIT 30.8 % (38.2-49.6); HEMOGLOBIN 8.8 g/dL (14.0-18.0); LYMPHOCYTES # (AUTO) 5.6 (1.0-3.2); MEAN CORPUSCULAR HEMOGLOBIN 28.1 pg (28-32); MEAN CORPUSCULAR HGB CONC 28.6 g/dL (31-35); MEAN CORPUSCULAR VOLUME 98.4 fL (81-99); MONOCYTES # (AUTO) 1.4 (0.2-0.8); MONOCYTES % 11.7 % (4.4-11.3); NEUTROPHILS # (AUTO) 3.5 (2.1-6.9); NEUTROPHILS % 30.5 % (38.7-80.0); PLATELET COUNT 105 x10e3/uL (140-360); RED BLOOD COUNT 3.13 x10e6/uL (4.3-5.7); RED CELL DISTRIBUTION WIDTH 16.1 % (11.7-14.4)
[2018-08-25 02:15] LABS: INR 1.26; PROTHROMBIN TIME 16.4 seconds (11.9-14.5)
[2018-08-25] MEDS ORDERED: VANCOMYCIN 1GM/NS 250 ML 250 ML IV ONE ×2 (02:15→07:00)
[2018-08-25] MEDS ORDERED: EPINEPHRINE HCL SYRINGE IV ONE ×3 (02:15→03:45)
[2018-08-25] MEDS ORDERED: ATROPINE SULFATE INJ 0.4 MG/ML VIAL IV ONE (02:15)
[2018-08-25] MEDS ORDERED: METHYLPREDNISOLONE SOD SUCC 125 MG/2ML VIAL IV ONE (02:15)
[2018-08-25 02:16] LABS: PARTIAL THROMBOPLASTIN TIME 53.4 seconds (23.8-35.5)
[2018-08-25 02:19] LABS: ABG PH 7.07 (7.31-7.41)
[2018-08-25 02:20] LABS: ABG HCO3 19 mmol/L (23-28); ABG PCO2 65 mmHg (41-51); ABG PO2 94 mmHg (80-105)
[2018-08-25 02:22] LABS: ALBUMIN 2.3 g/dL (3.5-5.0); ALBUMIN/GLOBULIN RATIO 0.7 (0.8-2.0); ANION GAP 28.6 mmol/L (8-16); CALCIUM 8.3 mg/dL (8.4-10.2); POTASSIUM 5.6 mmol/L (3.5-5.1)
[2018-08-25] MEDS ORDERED: ALBUTEROL/IPRATROPIUM 3 ML NEB ONE (02:26)
[2018-08-25 02:28] LABS: CREATINE KINASE MB 2.5 ng/mL (0-5.0)
[2018-08-25] MEDS ORDERED: SODIUM CHLORIDE 0.9% 1000ML 1,000 ML ONE ×2 (03:00→08:17)
[2018-08-25] MEDS ORDERED: ASPIRIN 81 MG CHEW TAB PO ONE (03:45)
--- OUTSIDE RECORDS SUMMARY | 2018-08-25 03:55 | XMS REPORT | Clinical Summary ---
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 Active simvastatin (ZOCOR) 20 MG Take 20 mg by 0 tablet mouth nightly. Active FLUoxetine (PROzac) 40 MG Take 40 mg by 0 capsule mouth daily. Active furosemide (LASIX) 40 mg Take 40 mg by 0 tablet mouth 2 (two) times a day. Active gabapentin (NEURONTIN) Take 100 mg 0 100 mg capsule by mouth 3 (three) times a day. Active insulin NPH (HumuLIN-N) Inject 20 0 100 unit/mL injection Units under the skin daily before breakfast. Active insulin NPH (HumuLIN-N) Inject 8 0 100 unit/mL injection Units under the skin daily before dinner. Active ipratropium-albuterol Take 3 mL by 0 (DUO-NEB) 0.5-2.5 mg/3 mL nebulization nebulizer every 4 (four) hours as needed for wheezing. Active sildenafil, Take 10 mg by 0 antihypertensive, mouth every 8 (REVATIO) 20 mg tablet (eight) hours. Active propranolol (INDERAL) 40 Take 40 mg by 0 MG tablet mouth 2 (two) times a day. Active tamsulosin (FLOMAX) 0.4 Take 0.4 mg 0 mg capsule by mouth daily. Active thiamine mononitrate, vit Take 100 mg 0 B1, (B-1) 100 mg tablet by mouth daily. 05/31/2018 Discontinued furosemide (LASIX) 40 mg Take 40 mg by 0 tablet mouth daily. 05/31/2018 Discontinued budesonide (PULMICORT) Take 0.5 mg 0 0.5 mg/2 mL nebulizer by solution nebulization 2 (two) times a day. 05/31/2018 Discontinued albuterol (ACCUNEB) 2.5 Take 2.5 mg 0 mg /3 mL (0.083 %) by nebulizer solution nebulization every 4 (four) hours as needed for wheezing. 05/31/2018 Discontinued ipratropium (ATROVENT) Take 500 mcg 0 0.02 % nebulizer solution by nebulization Every 4 hours while awake as needed (RT) for wheezing or shortness of breath. 07/21/2018 Discontinued cholecalciferol, vitamin Take 2,000 0 D3, (VITAMIN D3) 2,000 Units by unit capsule capsule mouth daily. 05/31/2018 Discontinued aspirin (ECOTRIN) 81 MG Take 81 mg by 0 enteric coated tablet mouth daily. 05/31/2018 Discontinued divalproex (DEPAKOTE) 250 Take 250 mg 0 MG EC tablet by mouth 2 (two) times a day. 05/31/2018 Discontinued allopurinol (ZYLOPRIM) Take 300 mg 0 300 MG tablet by mouth daily. 05/31/2018 Discontinued losartan (COZAAR) 50 MG Take 50 mg by 0 tablet mouth daily. 05/31/2018 Discontinued carbidopa-levodopa Take 1 tablet 0 (SINEMET) 25-100 mg per by mouth 3 tablet (three) times a day. 06/29/2018 gabapentin (NEURONTIN) Take 1 90 capsule 0 100 mg capsule capsule (100 9 mg total) by mouth 3 (three) times a day for 30 days. 06/30/2018 finasteride (PROSCAR) 5 Take 1 tablet 30 tablet 0 mg tablet (5 mg total) 9 by mouth daily for 30 days. 06/30/2018 tamsulosin (FLOMAX) 0.4 Take 1 30 capsule 0 mg capsule capsule (0.4 9 mg total) by mouth daily for 30 days. 06/29/2018 arformoterol (BROVANA) 15 Take 2 mL (15 120 mL 0 mcg/2 mL solution for mcg total) by 9 nebulization nebulization 2 (two) times a day for 30 days. 06/29/2018 ipratropium-albuterol Take 3 mL by 540 mL 0 (DUO-NEB) 0.5-2.5 mg/3 mL nebulization 9 nebulizer every 4 (four) hours for 30 days. 06/30/2018 propranolol (INDERAL) 40 Take 1 tablet 60 tablet 0 MG tablet (40 mg total) 9 by mouth 2 (two) times a day for 30 days. 06/29/2018 budesonide (PULMICORT) Take 2 mL 120 mL 0 0.5 mg/2 mL nebulizer (0.5 mg 9 solution total) by nebulization 2 (two) times a day for 30 days. 06/30/2018 insulin NPH (HumuLIN-N) Inject 20 10 mL 100 unit/mL injection Units under 9 the skin daily before breakfast for 30 days. 06/29/2018 insulin NPH (HumuLIN-N) Inject 8 10 mL 12 100 unit/mL injection Units under 9 the skin daily before dinner for 30 days. 06/29/2018 ferrous sulfate 300 mg Take 5 mL 300 mL 0 (60 mg iron)/5 mL syrup (300 mg 9 total) by mouth 2 (two) times a day for 30 days. 06/30/2018 furosemide (LASIX) 40 mg Take 1 tablet 60 tablet 0 tablet (40 mg total) 9 by mouth 2 (two) times a day for 30 days. 06/29/2018 latanoprost (XALATAN) Administer 1 1.5 mL 0 0.005 % ophthalmic drop to both 9 solution eyes nightly for 30 days. 06/30/2018 pantoprazole (PROTONIX) Take 1 tablet 30 tablet 0 40 MG EC tablet (40 mg total) 9 by mouth daily for 30 days. 05/31/2018 Discontinued sildenafil, Take 0.5 45 tablet antihypertensive, tablets (10 9 (REVATIO) 20 mg tablet mg total) by mouth every 8 (eight) hours for 30 days. 06/30/2018 thiamine mononitrate, vit Take 1 tablet 30 tablet 0 B1, (B-1) 100 mg tablet (100 mg 9 total) by mouth daily for 30 days. 07/01/2018 predniSONE (DELTASONE) 10 Take 2 60 tablet 0 mg tablet tablets (20 9 mg total) by mouth daily for 30 days. 07/21/2018 Discontinued blood sugar diagnostic Check blood 100 strip 0 strips (ACCU-CHEK KELLY sugar three 9 PLUS TEST STRP) strip times daily test strips before meals and at bedtime 07/21/2018 Discontinued lancets (accu-chek soft Use as 100 each 1 touch) misc directed 9 07/21/2018 Discontinued insulin syringe-needle Use as 100 each 0 U-100 0.3 mL 31 gauge x directed 9 06/30" syringe 05/31/2018 Discontinued sildenafil, Take 0.5 45 tablet 0 antihypertensive, tablets (10 9 (REVATIO) 20 mg tablet mg total) by mouth every 8 (eight) hours for 30 days. 06/30/2018 sildenafil, Take 0.5 45 tablet 0 antihypertensive, tablets (10 9 (REVATIO) 20 mg tablet mg total) by mouth every 8 (eight) hours for 30 days. 07/22/2018 Discontinued arformoterol (BROVANA) 15 Take 15 mcg 0 mcg/2 mL solution for by nebulization nebulization 2 (two) times a day. 07/22/2018 Discontinued budesonide (PULMICORT) Take 0.5 mg 0 0.5 mg/2 mL nebulizer by solution nebulization 2 (two) times a day. 07/22/2018 Discontinued finasteride (PROSCAR) 5 Take 5 mg by 0 mg tablet mouth daily. 07/22/2018 Discontinued predniSONE (DELTASONE) 10 Take 10 mg by 0 mg tablet mouth every other day. 07/25/2018 Discontinued acetylcysteine (MUCOMYST) Take 6 mL by 540 mL 0 200 mg/mL (20 %) nebulization 9 nebulizer solution every 6 (six) hours while awake for 30 days. 08/01/2018 amoxicillin-pot Take 1 tablet 20 tablet 0 clavulanate (AUGMENTIN) (500 mg 9 500-125 mg per tablet total) by mouth 2 (two) times a day for 10 days. 08/21/2018 fluticasone Inhale 1 30 each 0 furoate-vilanterol (BREO inhalations 9 ELLIPTA) 200-25 mcg/dose once daily blister with device for 30 days. powder for inhalation 07/25/2018 Discontinued acetylcysteine (MUCOMYST) Take 6 mL by 540 mL 0 200 mg/mL (20 %) solution mouth every 6 9 (six) hours while awake for 30 days. 07/25/2018 Discontinued acetylcysteine (MUCOMYST) Take 6 mL by 540 mL 0 200 mg/mL (20 %) nebulization 9 nebulizer solution every 6 (six) hours while awake for 30 days. 07/25/2018 Discontinued acetylcysteine (MUCOMYST) Take 6 mL by 540 mL 0 200 mg/mL (20 %) nebulization 9 nebulizer solution every 6 (six) hours while awake for 30 days. 08/24/2018 acetylcysteine (MUCOMYST) Take 6 mL by 540 mL 0 200 mg/mL (20 %) nebulization 9 nebulizer solution every 6 (six) hours while awake for 30 days. Active Problems Problem Noted Date Acute on chronic diastolic congestive heart failure Diastolic dysfunction 07/22/2018 Grade II (Moderate) Volume overload 07/21/2018 CKD (chronic kidney disease) stage 4, GFR 15-29 ml/min 07/21/2018 Bacterial pneumonia 07/21/2018 Thrombocytopenia 06/24/2018 Acute kidney injury superimposed on chronic kidney disease 04/20/2018 Iron deficiency anemia 04/20/2018 HLD (hyperlipidemia) 04/20/2018 Essential hypertension 04/20/2018 History of gout 04/20/2018 Constipation 04/20/2018 Other specified hypothyroidism 04/20/2018 Anxiety 04/20/2018 TIA (transient ischemic attack) 04/20/2018 Acute hypoxemic respiratory failure 04/20/2018 DM2 (diabetes mellitus, type 2) 04/20/2018 Hypothyroidism 04/20/2018 COPD (chronic obstructive pulmonary disease) 04/19/2018 Respiratory failure 04/19/2018 Muscle weakness Idiopathic progressive polyneuropathy Encounters Care Team Description Date Type Specialty Casey Cheung MD 07/25/2018 Refill Neurosurgery Casey Cheung MD 07/25/2018 Refill Neurosurgery Chelsy Ricks RN 07/22/2018 Patient Quality Outreach Bill Mercedesc MD Jonatan Garcia Paul, MD Shortness of breath (Primary Dx); Acute on chronic diastolic congestive heart failure Diastolic dysfunction Grade II (Moderate); Bacterial pneumonia; Idiopathic progressive polyneuropathy; Hyperlipidemia, unspecified hyperlipidemia type; Chronic obstructive pulmonary disease, unspecified COPD type (HCC); Type 2 diabetes mellitus with complication, unspecified whether fpc insulin use (HCC); Essential hypertension; Hypervolemia, unspecified hypervolemia type; CKD (chronic kidney disease) stage 4, GFR 15-29 ml/min (HCC) 07/21/2018 Hospital Neurosurgery - Encounter 07/22/2018 Maverick Feldman MD Other specified diseases of blood and blood-forming organs 06/23/2018 Lab Lab Maverick Feldman MD Thrombocytopenia (HCC) (Primary Dx) 06/23/2018 Office Visit Hematology Charla Morales MA Other specified diseases of blood and blood-forming organs (Primary Dx) 06/21/2018 Orders Only Hematology Chelsy Ricks RN 05/31/2018 Patient Quality Outreach Susanna Charles 05/18/2018 Abstract Quality Demetri Luevano MD Muscle weakness (Primary Dx); Chronic obstructive pulmonary disease, unspecified COPD type (HCC) 05/17/2018 Hospital Rehabilitation - Encounter 05/31/2018 Susanna Charles 05/05/2018 Patient Quality Outreach Moncho Hernandez MD Rosenfield, David B., MD Respiratory abnormality (Primary Dx) 04/28/2018 Procedure visit Neurology Asim Caldwell MD Gonzalez, Maria Guillermina, MD Chan, Andy S., MD Chronic obstructive pulmonary disease, unspecified COPD type (HCC) (Primary Dx) 04/19/2018 Hospital Critical Care Medicine - Encounter 05/17/2018 04/19/2018 Travel N/A 04/19/2018 Intake Access after 08/24/2017 Social History Date Tobacco Use Types Packs/Day Years Used Quit: 04/20/1988 Former Smoker 20 Smokeless Tobacco: Never Used Tobacco Cessation: Counseling Given: Yes Alcohol Use Drinks/Week oz/Week Comments Yes 1 Glasses of 1.2 occasionally liquor or beer wine 1 Shots of liquor Alcohol Habits Answer Date Recorded How often do you have a drink containing alcohol? Never 04/20/2018 How many drinks containing alcohol do you have on Not asked a typical day when you are drinking? How often do you have six or more drinks on one Not asked occasion? Sex Assigned at Date Recorded Not on file Industry Job Start Date Occupation Not on file Not on file Not on file Travel End Travel History Travel Start No recent travel history available. Last Filed Vital Signs Time Taken Vital Sign Reading 07/22/2018 3:45 PM CDT Blood Pressure 145/69 07/22/2018 3:45 PM CDT Pulse 53 07/22/2018 3:45 PM CDT Temperature 35.8 C (96.4 F) 07/22/2018 3:45 PM CDT Respiratory Rate 19 07/22/2018 3:45 PM CDT Oxygen Saturation 92% - Inhaled Oxygen - Concentration 07/22/2018 5:00 AM CDT Weight 91.6 kg (202 lb) 07/21/2018 10:38 AM CDT Height 165.1 cm (5' 5") 07/21/2018 10:38 AM CDT Body Mass Index 33.61 Plan of Treatment Health Maintenance Due Date Last Done Comments DIABETIC RETINAL EYE EXAM 1933 DIABETIC FOOT EXAM 10/08/1943 SHINGLES VACCINES (#1) 10/08/1983 65+ PNEUMOCOCCAL VACCINE 1998 (1 of 2 - PCV13) INFLUENZA VACCINE 09/15/2018 Procedures Comments Procedure Name Priority Date/Time Associated Diagnosis US DUPLEX VENOUS LOWER Routine 07/22/2018 EXTREMITY BILATERAL 3:19 PM CDT XR CHEST 1 VW PORTABLE STAT 07/22/2018 1:09 PM CDT HC COMPLETE BLD COUNT Routine 07/22/2018 W/AUTO DIFF 4:30 AM CDT ESTIMATED GFR Routine 07/22/2018 4:00 AM CDT MAGNESIUM LEVEL Routine 07/22/2018 4:00 AM CDT COMPREHENSIVE METABOLIC Routine 07/22/2018 PANEL 4:00 AM CDT STREPTOCOCCUS PNEUMONIAE Routine 07/22/2018 URINARY ANTIGEN 2:45 AM CDT LEGIONELLA URINARY Routine 07/22/2018 ANTIGEN 2:45 AM CDT POC GLUCOSE Routine 07/21/2018 8:55 PM CDT TROPONIN Timed 07/21/2018 6:10 PM CDT LACTIC ACID LEVEL, SEPSIS Timed 07/21/2018 - NOW AND REPEAT 2X EVERY 6:10 PM CDT 3 HOURS TROPONIN Timed 07/21/2018 2:53 PM CDT LACTIC ACID LEVEL, SEPSIS Timed 07/21/2018 - NOW AND REPEAT 2X EVERY 2:53 PM CDT [address] CHEST WO CONTRAST STAT 07/21/2018 2:21 PM CDT XR CHEST 1 VW PORTABLE STAT 07/21/2018 12:08 PM CDT VENOUS BLOOD GAS STAT 07/21/2018 11:59 AM CDT RESPIRATORY PATHOGEN Routine 07/21/2018 PANEL 11:52 AM CDT INFLUENZA ANTIGEN TEST, Routine 07/21/2018 REFLEX NEGATIVE TO RPP 11:52 AM CDT BLOOD CULTURE, AEROBIC & Routine 07/21/2018 ANAEROBIC 11:45 AM CDT D-DIMER STAT 07/21/2018 11:41 AM CDT ESTIMATED GFR STAT 07/21/2018 11:41 AM CDT TYPE AND SCREEN Routine 07/21/2018 11:41 AM CDT B NATRIURETIC PEPTIDE STAT 07/21/2018 11:41 AM CDT TROPONIN STAT 07/21/2018 11:41 AM CDT CREATINE KINASE, TOTAL STAT 07/21/2018 (CPK) 11:41 AM CDT LACTIC ACID LEVEL, SEPSIS STAT 07/21/2018 - NOW AND REPEAT 2X EVERY 11:41 AM CDT 3 HOURS COMPREHENSIVE METABOLIC STAT 07/21/2018 PANEL 11:41 AM CDT PARTIAL THROMBOPLASTIN STAT 07/21/2018 TIME (PTT) 11:41 AM CDT PROTHROMBIN TIME WITH INR STAT 07/21/2018 11:41 AM CDT HC COMPLETE BLD COUNT STAT 07/21/2018 W/AUTO DIFF 11:41 AM CDT BLOOD CULTURE, AEROBIC & Routine 07/21/2018 ANAEROBIC 11:41 AM CDT ECG 12-LEAD STAT 07/21/2018 10:51 AM CDT ESTIMATED GFR Routine 06/23/2018 2:00 PM CDT CREATININE LEVEL Routine 06/23/2018 2:00 PM CDT ERYTHROPOIETIN Routine 06/23/2018 2:00 PM CDT FERRITIN LEVEL Routine 06/23/2018 2:00 PM CDT MANUAL DIFFERENTIAL Routine 06/23/2018 2:00 PM CDT CBC WITH PLATELET AND Routine 06/23/2018 Other specified diseases DIFFERENTIAL 2:00 PM CDT of blood and blood-forming organs POC GLUCOSE Routine 05/31/2018 11:30 AM CDT POC GLUCOSE Routine 05/31/2018 6:49 AM CDT MANUAL DIFFERENTIAL Routine 05/31/2018 5:45 AM CDT ESTIMATED GFR Routine 05/31/2018 5:45 AM CDT CBC WITH PLATELET AND Routine 05/31/2018 DIFFERENTIAL 5:45 AM CDT BASIC METABOLIC PANEL Routine 05/31/2018 5:45 AM CDT POC GLUCOSE Routine 05/30/2018 7:48 PM CDT POC GLUCOSE Routine 05/30/2018 5:00 PM CDT POC GLUCOSE Routine 05/30/2018 12:11 PM CDT POC GLUCOSE Routine 05/30/2018 9:09 AM CDT POC GLUCOSE Routine 05/30/2018 5:52 AM CDT POC GLUCOSE Routine 05/29/2018 9:33 PM CDT POC GLUCOSE Routine 05/29/2018 5:13 PM CDT POC GLUCOSE Routine 05/29/2018 11:52 AM CDT POC GLUCOSE Routine 05/29/2018 5:57 AM CDT POC GLUCOSE Routine 05/28/2018 9:14 PM CDT POC GLUCOSE Routine 05/28/2018 4:30 PM CDT POC GLUCOSE Routine 05/28/2018 11:11 AM CDT POC GLUCOSE Routine 05/28/2018 6:26 AM CDT POC GLUCOSE Routine 05/27/2018 9:09 PM CDT POC GLUCOSE Routine 05/27/2018 4:51 PM CDT HC COMPLETE BLD COUNT Routine 05/27/2018 W/AUTO DIFF 3:40 PM CDT POC GLUCOSE Routine 05/27/2018 10:36 AM CDT ESTIMATED GFR Routine 05/27/2018 7:32 AM CDT BASIC METABOLIC PANEL Routine 05/27/2018 7:32 AM CDT POC GLUCOSE Routine 05/27/2018 6:13 AM CDT POC GLUCOSE Routine 05/26/2018 8:41 PM CDT POC GLUCOSE Routine 05/26/2018 5:31 PM CDT SPIROMETRY PRE AND POST Routine 05/26/2018 Muscle weakness WITH BRONCHILATOR, 2:46 PM CDT MIPS/MEPS POC GLUCOSE Routine 05/26/2018 11:34 AM CDT POC GLUCOSE Routine 05/26/2018 6:32 AM CDT POC GLUCOSE Routine 05/25/2018 8:19 PM CDT POC GLUCOSE Routine 05/25/2018 4:52 PM CDT POC GLUCOSE Routine 05/25/2018 11:18 AM CDT MANUAL DIFFERENTIAL Routine 05/25/2018 7:00 AM CDT CBC WITH PLATELET AND Routine 05/25/2018 DIFFERENTIAL 7:00 AM CDT POC GLUCOSE Routine 05/25/2018 6:23 AM CDT ESTIMATED GFR Routine 05/25/2018 4:00 AM CDT BASIC METABOLIC PANEL Routine 05/25/2018 4:00 AM CDT POC GLUCOSE Routine 05/24/2018 9:02 PM CDT POC GLUCOSE Routine 05/24/2018 6:20 PM CDT POC GLUCOSE Routine 05/24/2018 4:59 PM CDT POC GLUCOSE Routine 05/24/2018 10:42 AM CDT POC GLUCOSE Routine 05/24/2018 6:33 AM CDT POC GLUCOSE Routine 05/23/2018 8:59 PM CDT POC GLUCOSE Routine 05/23/2018 4:45 PM CDT POC GLUCOSE Routine 05/23/2018 11:00 AM CDT POC GLUCOSE Routine 05/23/2018 5:25 AM CDT ESTIMATED GFR Routine 05/23/2018 4:00 AM CDT BASIC METABOLIC PANEL Routine 05/23/2018 4:00 AM CDT POC GLUCOSE Routine 05/23/2018 12:06 AM CDT POC GLUCOSE Routine 05/22/2018 9:49 PM CDT POC GLUCOSE Routine 05/22/2018 8:34 PM CDT POC GLUCOSE Routine 05/22/2018 8:30 PM CDT POC GLUCOSE Routine 05/22/2018 4:49 PM CDT POC GLUCOSE Routine 05/22/2018 11:55 AM CDT POC GLUCOSE Routine 05/22/2018 5:47 AM CDT B NATRIURETIC PEPTIDE Routine 05/22/2018 5:25 AM CDT ESTIMATED GFR Routine 05/22/2018 4:00 AM CDT BASIC METABOLIC PANEL Routine 05/22/2018 4:00 AM CDT POC GLUCOSE Routine 05/21/2018 8:46 PM CDT POTASSIUM LEVEL STAT 05/21/2018 5:55 PM CDT POC GLUCOSE Routine 05/21/2018 4:58 PM CDT ESTIMATED GFR Routine 05/21/2018 12:11 PM CDT BASIC METABOLIC PANEL Routine 05/21/2018 12:11 PM CDT POC GLUCOSE Routine 05/21/2018 11:35 AM CDT B NATRIURETIC PEPTIDE Routine 05/21/2018 8:00 AM CDT POC GLUCOSE Routine 05/21/2018 6:06 AM CDT POC GLUCOSE Routine 05/20/2018 9:08 PM CDT POC GLUCOSE Routine 05/20/2018 5:00 PM CDT POC GLUCOSE Routine 05/20/2018 11:05 AM CDT B NATRIURETIC PEPTIDE Routine 05/20/2018 7:00 AM CDT POC GLUCOSE Routine 05/20/2018 6:24 AM CDT ESTIMATED GFR Routine 05/20/2018 4:00 AM CDT BASIC METABOLIC PANEL Routine 05/20/2018 4:00 AM CDT POC GLUCOSE Routine 05/19/2018 8:40 PM CDT POC GLUCOSE Routine 05/19/2018 5:39 PM CDT XR CHEST 2 VW STAT 05/19/2018 4:08 PM CDT URINALYSIS SCREEN AND Routine 05/19/2018 MICROSCOPY, WITH REFLEX 2:50 PM CDT TO CULTURE URINE CULTURE Routine 05/19/2018 2:50 PM CDT RESPIRATORY PATHOGEN Routine 05/19/2018 PANEL 2:42 PM CDT HC COMPLETE BLD COUNT STAT 05/19/2018 W/AUTO DIFF 12:12 PM CDT POC GLUCOSE Routine 05/19/2018 11:43 AM CDT ESTIMATED GFR Routine 05/19/2018 8:22 AM CDT BASIC METABOLIC PANEL Routine 05/19/2018 8:22 AM CDT POC GLUCOSE Routine 05/19/2018 6:29 AM CDT POC GLUCOSE Routine 05/18/2018 8:43 PM CDT MANUAL DIFFERENTIAL Routine 05/18/2018 12:56 PM CDT CBC WITH PLATELET AND Routine 05/18/2018 DIFFERENTIAL 12:56 PM CDT POC GLUCOSE Routine 05/18/2018 12:00 PM CDT ABSTRACTED LVEF Routine 05/18/2018 11:33 AM CDT ESTIMATED GFR Routine 05/18/2018 9:29 AM CDT BASIC METABOLIC PANEL Routine 05/18/2018 9:29 AM CDT POC GLUCOSE Routine 05/18/2018 6:23 AM CDT POC GLUCOSE Routine 05/17/2018 9:41 PM CDT POC GLUCOSE Routine 05/17/2018 4:42 PM CDT POC GLUCOSE Routine 05/17/2018 12:21 PM CDT POC GLUCOSE Routine 05/17/2018 7:46 AM CDT MANUAL DIFFERENTIAL Routine 05/17/2018 3:15 AM CDT ESTIMATED GFR Routine 05/17/2018 3:15 AM CDT BASIC METABOLIC PANEL Routine 05/17/2018 3:15 AM CDT CBC WITH PLATELET AND Routine 05/17/2018 DIFFERENTIAL 3:15 AM CDT PERIPHERAL SMEAR Routine 05/17/2018 3:15 AM CDT POC GLUCOSE Routine 05/16/2018 8:42 PM CDT POC GLUCOSE Routine 05/16/2018 3:41 PM CDT SERUM ELECTROPHORESIS Routine 05/16/2018 3:29 PM CDT POC GLUCOSE Routine 05/16/2018 11:30 AM CDT POC GLUCOSE Routine 05/16/2018 8:26 AM CDT MANUAL DIFFERENTIAL Routine 05/16/2018 4:42 AM CDT ESTIMATED GFR Routine 05/16/2018 4:42 AM CDT MAGNESIUM LEVEL Routine 05/16/2018 4:42 AM CDT CBC WITH PLATELET AND Routine 05/16/2018 DIFFERENTIAL 4:42 AM CDT BASIC METABOLIC PANEL Routine 05/16/2018 4:42 AM CDT POC GLUCOSE Routine 05/15/2018 8:24 PM CDT POC GLUCOSE Routine 05/15/2018 6:16 PM CDT POC GLUCOSE Routine 05/15/2018 4:23 PM CDT POC GLUCOSE Routine 05/15/2018 11:12 AM CDT POC GLUCOSE Routine 05/15/2018 7:45 AM CDT MANUAL DIFFERENTIAL Routine 05/15/2018 5:25 AM CDT ESTIMATED GFR Routine 05/15/2018 5:25 AM CDT PHOSPHORUS LEVEL Routine 05/15/2018 5:25 AM CDT MAGNESIUM LEVEL Routine 05/15/2018 5:25 AM CDT BASIC METABOLIC PANEL Routine 05/15/2018 5:25 AM CDT CBC WITH PLATELET AND Routine 05/15/2018 DIFFERENTIAL 5:25 AM CDT POC GLUCOSE Routine 05/15/2018 5:08 AM CDT POC GLUCOSE Routine 05/15/2018 12:01 AM CDT POC GLUCOSE Routine 05/14/2018 8:23 PM CDT POC GLUCOSE Routine 05/14/2018 4:34 PM CDT POC GLUCOSE Routine 05/14/2018 8:26 AM CDT SMEAR REVIEW Routine 05/14/2018 5:40 AM CDT ESTIMATED GFR Routine 05/14/2018 5:40 AM CDT MAGNESIUM LEVEL Routine 05/14/2018 5:40 AM CDT BASIC METABOLIC PANEL Routine 05/14/2018 5:40 AM CDT HC COMPLETE BLD COUNT Routine 05/14/2018 W/AUTO DIFF 5:40 AM CDT POC GLUCOSE Routine 05/13/2018 8:52 PM CDT POC GLUCOSE Routine 05/13/2018 5:20 PM CDT FL MODIFIED BARIUM Routine 05/13/2018 SWALLOW 2:46 PM CDT POC GLUCOSE Routine 05/13/2018 1:13 PM CDT POC GLUCOSE Routine 05/13/2018 9:41 AM CDT SMEAR REVIEW Routine 05/13/2018 6:15 AM CDT HC COMPLETE BLD COUNT Routine 05/13/2018 W/AUTO DIFF 6:15 AM CDT POC GLUCOSE Routine 05/13/2018 4:47 AM CDT ESTIMATED GFR Routine 05/13/2018 4:00 AM CDT BASIC METABOLIC PANEL Routine 05/13/2018 4:00 AM CDT POC GLUCOSE Routine 05/13/2018 12:15 AM CDT POC GLUCOSE Routine 05/12/2018 8:19 PM CDT POC GLUCOSE Routine 05/12/2018 4:30 PM CDT POC GLUCOSE Routine 05/12/2018 12:29 PM CDT XR CHEST 1 VW PORTABLE STAT 05/12/2018 10:55 AM CDT POC GLUCOSE Routine 05/12/2018 7:35 AM CDT MANUAL DIFFERENTIAL Routine 05/12/2018 5:00 AM CDT CBC WITH PLATELET AND Routine 05/12/2018 DIFFERENTIAL 5:00 AM CDT ESTIMATED GFR Routine 05/12/2018 4:00 AM CDT BASIC METABOLIC PANEL Routine 05/12/2018 4:00 AM CDT POC GLUCOSE Routine 05/11/2018 9:31 PM CDT POC GLUCOSE Routine 05/11/2018 4:47 PM CDT POC GLUCOSE Routine 05/11/2018 11:52 AM CDT GRAM STAIN Routine 05/11/2018 10:20 AM CDT SPUTUM CULTURE Routine 05/11/2018 10:20 AM CDT POC GLUCOSE Routine 05/11/2018 7:25 AM CDT POC GLUCOSE Routine 05/11/2018 5:21 AM CDT MANUAL DIFFERENTIAL Routine 05/11/2018 4:45 AM CDT CBC WITH PLATELET AND Routine 05/11/2018 DIFFERENTIAL 4:45 AM CDT ESTIMATED GFR Routine 05/11/2018 4:00 AM CDT BASIC METABOLIC PANEL Routine 05/11/2018 4:00 AM CDT POC GLUCOSE Routine 05/11/2018 12:10 AM CDT ECG 12-LEAD STAT 05/10/2018 9:55 PM CDT POC GLUCOSE Routine 05/10/2018 8:15 PM CDT POC GLUCOSE Routine 05/10/2018 11:48 AM CDT POC GLUCOSE Routine 05/10/2018 7:44 AM CDT MANUAL DIFFERENTIAL Routine 05/10/2018 4:10 AM CDT CBC WITH PLATELET AND Routine 05/10/2018 DIFFERENTIAL 4:10 AM CDT ESTIMATED GFR Routine 05/10/2018 4:00 AM CDT BASIC METABOLIC PANEL Routine 05/10/2018 4:00 AM CDT POC GLUCOSE Routine 05/10/2018 12:19 AM CDT POC GLUCOSE Routine 05/09/2018 8:45 PM CDT POC GLUCOSE Routine 05/09/2018 4:21 PM CDT POC GLUCOSE Routine 05/09/2018 4:08 PM CDT POC GLUCOSE Routine 05/09/2018 12:19 PM CDT XR CHEST 1 VW PORTABLE Routine 05/09/2018 11:48 AM CDT POC GLUCOSE Routine 05/09/2018 7:44 AM CDT GRAM STAIN Routine 05/09/2018 7:00 AM CDT SPUTUM CULTURE Routine 05/09/2018 7:00 AM CDT MANUAL DIFFERENTIAL Routine 05/09/2018 5:05 AM CDT ESTIMATED GFR Routine 05/09/2018 5:05 AM CDT PHOSPHORUS LEVEL Routine 05/09/2018 5:05 AM CDT MAGNESIUM LEVEL Routine 05/09/2018 5:05 AM CDT BASIC METABOLIC PANEL Routine 05/09/2018 5:05 AM CDT CBC WITH PLATELET AND Routine 05/09/2018 DIFFERENTIAL 5:05 AM CDT POC GLUCOSE Routine 05/09/2018 4:22 AM CDT POC GLUCOSE Routine 05/09/2018 12:20 AM CDT POC GLUCOSE Routine 05/08/2018 8:21 PM CDT POC GLUCOSE Routine 05/08/2018 5:20 PM CDT POC GLUCOSE Routine 05/08/2018 12:50 PM CDT POC GLUCOSE Routine 05/08/2018 12:47 PM CDT SERUM ELECTROPHORESIS Routine 05/08/2018 12:03 PM CDT POC GLUCOSE Routine 05/08/2018 8:29 AM CDT MANUAL DIFFERENTIAL Routine 05/08/2018 6:10 AM CDT ESTIMATED GFR Routine 05/08/2018 6:10 AM CDT BASIC METABOLIC PANEL Routine 05/08/2018 6:10 AM CDT VITAMIN B12 LEVEL Routine 05/08/2018 6:10 AM CDT RETICULOCYTE COUNT Routine 05/08/2018 6:10 AM CDT PROTHROMBIN TIME WITH INR Routine 05/08/2018 6:10 AM CDT PARTIAL THROMBOPLASTIN Routine 05/08/2018 TIME (PTT) 6:10 AM CDT LDH Routine 05/08/2018 6:10 AM CDT FOLATE LEVEL Routine 05/08/2018 6:10 AM CDT FIBRINOGEN Routine 05/08/2018 6:10 AM CDT D-DIMER Routine 05/08/2018 6:10 AM CDT CBC WITH PLATELET AND Routine 05/08/2018 DIFFERENTIAL 6:10 AM CDT POC GLUCOSE Routine 05/08/2018 5:14 AM CDT POC GLUCOSE Routine 05/08/2018 12:17 AM CDT POC GLUCOSE Routine 05/07/2018 8:08 PM CDT POC GLUCOSE Routine 05/07/2018 4:40 PM CDT POC GLUCOSE Routine 05/07/2018 11:54 AM CDT HEPARIN PF4 ANTIBODY Routine 05/07/2018 (IGG) 10:33 AM CDT POC GLUCOSE Routine 05/07/2018 7:25 AM CDT POC GLUCOSE Routine 05/07/2018 4:18 AM CDT MANUAL DIFFERENTIAL Routine 05/07/2018 4:00 AM CDT ESTIMATED GFR Routine 05/07/2018 4:00 AM CDT BASIC METABOLIC PANEL Routine 05/07/2018 4:00 AM CDT CBC WITH PLATELET AND Routine 05/07/2018 DIFFERENTIAL 4:00 AM CDT POC GLUCOSE Routine 05/06/2018 8:24 PM CDT POC GLUCOSE Routine 05/06/2018 5:01 PM CDT POC GLUCOSE Routine 05/06/2018 12:08 PM CDT POC GLUCOSE Routine 05/06/2018 7:42 AM CDT POC GLUCOSE Routine 05/06/2018 3:38 AM CDT PERIPHERAL SMEAR Routine 05/06/2018 3:30 AM CDT MANUAL DIFFERENTIAL Routine 05/06/2018 3:30 AM CDT CBC WITH PLATELET AND Routine 05/06/2018 DIFFERENTIAL 3:30 AM CDT POC GLUCOSE Routine 05/06/2018 12:56 AM CDT ESTIMATED GFR Routine 05/05/2018 9:08 PM CDT LACTIC ACID LEVEL STAT 05/05/2018 9:08 PM CDT COMPREHENSIVE METABOLIC Routine 05/05/2018 PANEL 9:08 PM CDT POC GLUCOSE Routine 05/05/2018 4:53 PM CDT POC GLUCOSE Routine 05/05/2018 12:27 PM CDT XR CHEST 1 VW PORTABLE STAT 05/05/2018 11:10 AM CDT POC GLUCOSE Routine 05/05/2018 8:26 AM CDT POC GLUCOSE Routine 05/05/2018 5:22 AM CDT POC GLUCOSE Routine 05/05/2018 4:49 AM CDT MANUAL DIFFERENTIAL Routine 05/05/2018 4:45 AM CDT CBC WITH PLATELET AND Routine 05/05/2018 DIFFERENTIAL 4:45 AM CDT ESTIMATED GFR Routine 05/05/2018 4:00 AM CDT PHOSPHORUS LEVEL Routine 05/05/2018 4:00 AM CDT MAGNESIUM LEVEL Routine 05/05/2018 4:00 AM CDT IONIZED CALCIUM Routine 05/05/2018 4:00 AM CDT BASIC METABOLIC PANEL Routine 05/05/2018 4:00 AM CDT POC GLUCOSE Routine 05/04/2018 8:46 PM CDT POC GLUCOSE Routine 05/04/2018 4:27 PM CDT POC GLUCOSE Routine 05/04/2018 12:04 PM CDT POC GLUCOSE Routine 05/04/2018 7:34 AM CDT ESTIMATED GFR Routine 05/04/2018 4:00 AM CDT HC COMPLETE BLD COUNT Routine 05/04/2018 W/AUTO DIFF 4:00 AM CDT PHOSPHORUS LEVEL Routine 05/04/2018 4:00 AM CDT MAGNESIUM LEVEL Routine 05/04/2018 4:00 AM CDT IONIZED CALCIUM Routine 05/04/2018 4:00 AM CDT BASIC METABOLIC PANEL Routine 05/04/2018 4:00 AM CDT POC GLUCOSE Routine 05/03/2018 8:13 PM CDT POC GLUCOSE Routine 05/03/2018 5:33 PM CDT POC GLUCOSE Routine 05/03/2018 11:43 AM CDT POC GLUCOSE Routine 05/03/2018 8:20 AM CDT HC COMPLETE BLD COUNT Routine 05/03/2018 W/AUTO DIFF 4:20 AM CDT POC GLUCOSE Routine 05/03/2018 4:04 AM CDT ESTIMATED GFR Routine 05/03/2018 4:00 AM CDT PHOSPHORUS LEVEL Routine 05/03/2018 4:00 AM CDT MAGNESIUM LEVEL Routine 05/03/2018 4:00 AM CDT IONIZED CALCIUM Routine 05/03/2018 4:00 AM CDT BASIC METABOLIC PANEL Routine 05/03/2018 4:00 AM CDT POC GLUCOSE Routine 05/02/2018 11:35 PM CDT POC GLUCOSE Routine 05/02/2018 9:33 PM CDT POC GLUCOSE Routine 05/02/2018 4:37 PM CDT XR CHEST 1 VW PORTABLE Routine 05/02/2018 12:42 PM CDT POC GLUCOSE Routine 05/02/2018 12:30 PM CDT POC GLUCOSE Routine 05/02/2018 8:44 AM CDT POC GLUCOSE Routine 05/02/2018 5:14 AM CDT ESTIMATED GFR Routine 05/02/2018 3:50 AM CDT IONIZED CALCIUM Routine 05/02/2018 3:50 AM CDT HC COMPLETE BLD COUNT Routine 05/02/2018 W/AUTO DIFF 3:50 AM CDT BASIC METABOLIC PANEL Routine 05/02/2018 3:50 AM CDT PHOSPHORUS LEVEL Routine 05/02/2018 3:50 AM CDT MAGNESIUM LEVEL Routine 05/02/2018 3:50 AM CDT IMMUNOGLOBULIN G Routine 05/02/2018 3:50 AM CDT HEPARIN PF4 ANTIBODY Routine 05/02/2018 (IGG) 3:50 AM CDT POC GLUCOSE Routine 05/02/2018 12:42 AM CDT POC GLUCOSE Routine 05/01/2018 8:57 PM CDT POC GLUCOSE Routine 05/01/2018 4:48 PM CDT POC GLUCOSE Routine 05/01/2018 11:28 AM CDT POC GLUCOSE Routine 05/01/2018 7:54 AM CDT HC COMPLETE BLD COUNT Routine 05/01/2018 W/AUTO DIFF 6:00 AM CDT POC GLUCOSE Routine 05/01/2018 4:23 AM CDT ESTIMATED GFR Routine 05/01/2018 4:00 AM CDT IONIZED CALCIUM Routine 05/01/2018 4:00 AM CDT PHOSPHORUS LEVEL Routine 05/01/2018 4:00 AM CDT MAGNESIUM LEVEL Routine 05/01/2018 4:00 AM CDT BASIC METABOLIC PANEL Routine 05/01/2018 4:00 AM CDT POC GLUCOSE Routine 05/01/2018 12:59 AM CDT POC GLUCOSE Routine 04/30/2018 8:17 PM CDT POC GLUCOSE Routine 04/30/2018 4:48 PM CDT POC GLUCOSE Routine 04/30/2018 11:37 AM CDT POC GLUCOSE Routine 04/30/2018 7:34 AM CDT XR CHEST 1 VW PORTABLE Routine 04/30/2018 7:15 AM CDT HC COMPLETE BLD COUNT Routine 04/30/2018 W/AUTO DIFF 4:50 AM CDT POC GLUCOSE Routine 04/30/2018 4:47 AM CDT ESTIMATED GFR Routine 04/30/2018 4:00 AM CDT PHOSPHORUS LEVEL Routine 04/30/2018 4:00 AM CDT MAGNESIUM LEVEL Routine 04/30/2018 4:00 AM CDT IONIZED CALCIUM Routine 04/30/2018 4:00 AM CDT COMPREHENSIVE METABOLIC Routine 04/30/2018 PANEL 4:00 AM CDT POC GLUCOSE Routine 04/30/2018 12:36 AM CDT POC GLUCOSE Routine 04/29/2018 8:35 PM CDT POC GLUCOSE Routine 04/29/2018 4:41 PM CDT POC GLUCOSE Routine 04/29/2018 11:12 AM CDT POC GLUCOSE Routine 04/29/2018 8:39 AM CDT POC GLUCOSE Routine 04/29/2018 4:54 AM CDT MANUAL DIFFERENTIAL Routine 04/29/2018 2:50 AM CDT ESTIMATED GFR Routine 04/29/2018 2:50 AM CDT IONIZED CALCIUM Routine 04/29/2018 2:50 AM CDT PHOSPHORUS LEVEL Routine 04/29/2018 2:50 AM CDT MAGNESIUM LEVEL Routine 04/29/2018 2:50 AM CDT BASIC METABOLIC PANEL Routine 04/29/2018 2:50 AM CDT CBC WITH PLATELET AND Routine 04/29/2018 DIFFERENTIAL 2:50 AM CDT POC GLUCOSE Routine 04/29/2018 12:48 AM CDT POC GLUCOSE Routine 04/28/2018 8:45 PM CDT POC GLUCOSE Routine 04/28/2018 4:45 PM CDT EMG Routine 04/28/2018 1:53 PM CDT POC GLUCOSE Routine 04/28/2018 11:22 AM CDT POC GLUCOSE Routine 04/28/2018 7:46 AM CDT POC GLUCOSE Routine 04/28/2018 4:47 AM CDT ESTIMATED GFR Routine 04/28/2018 3:42 AM CDT BASIC METABOLIC PANEL Routine 04/28/2018 3:42 AM CDT MAGNESIUM LEVEL Routine 04/28/2018 3:42 AM CDT IONIZED CALCIUM Routine 04/28/2018 3:42 AM CDT PHOSPHORUS LEVEL Routine 04/28/2018 3:42 AM CDT HC COMPLETE BLD COUNT Routine 04/28/2018 W/AUTO DIFF 3:42 AM CDT POC GLUCOSE Routine 04/28/2018 12:42 AM CDT POC GLUCOSE Routine 04/27/2018 8:53 PM CDT POC GLUCOSE Routine 04/27/2018 5:57 PM CDT XR CHEST 1 VW PORTABLE Routine 04/27/2018 12:14 PM CDT POC GLUCOSE Routine 04/27/2018 11:27 AM CDT POC GLUCOSE Routine 04/27/2018 7:34 AM CDT MANUAL DIFFERENTIAL Routine 04/27/2018 5:00 AM CDT CBC WITH PLATELET AND Routine 04/27/2018 DIFFERENTIAL 5:00 AM CDT POC GLUCOSE Routine 04/27/2018 4:36 AM CDT ESTIMATED GFR Routine 04/27/2018 4:00 AM CDT IONIZED CALCIUM Routine 04/27/2018 4:00 AM CDT PHOSPHORUS LEVEL Routine 04/27/2018 4:00 AM CDT MAGNESIUM LEVEL Routine 04/27/2018 4:00 AM CDT BASIC METABOLIC PANEL Routine 04/27/2018 4:00 AM CDT POC GLUCOSE Routine 04/27/2018 12:41 AM CDT POC GLUCOSE Routine 04/26/2018 8:07 PM CDT NM LUNG VENTILATION Routine 04/26/2018 PERFUSION 5:25 PM CDT POC GLUCOSE Routine 04/26/2018 4:24 PM CDT POC GLUCOSE Routine 04/26/2018 11:37 AM CDT POC GLUCOSE Routine 04/26/2018 8:29 AM CDT POC GLUCOSE Routine 04/26/2018 4:28 AM CDT MANUAL DIFFERENTIAL Routine 04/26/2018 3:50 AM CDT ESTIMATED GFR Routine 04/26/2018 3:50 AM CDT IONIZED CALCIUM Routine 04/26/2018 3:50 AM CDT PHOSPHORUS LEVEL Routine 04/26/2018 3:50 AM CDT MAGNESIUM LEVEL Routine 04/26/2018 3:50 AM CDT CBC WITH PLATELET AND Routine 04/26/2018 DIFFERENTIAL 3:50 AM CDT BASIC METABOLIC PANEL Routine 04/26/2018 3:50 AM CDT POC GLUCOSE Routine 04/26/2018 12:50 AM CDT POC GLUCOSE Routine 04/25/2018 8:07 PM CDT POC GLUCOSE Routine 04/25/2018 5:02 PM CDT XR CHEST 1 VW PORTABLE Routine 04/25/2018 2:12 PM CDT POC GLUCOSE Routine 04/25/2018 1:08 PM CDT ECHOCARDIOGRAM 2D Routine 04/25/2018 COMPLETE W MMODE SPECTRAL 10:11 AM CDT COLOR DOPPLER (19098) POC GLUCOSE Routine 04/25/2018 8:51 AM CDT POC GLUCOSE Routine 04/25/2018 4:57 AM CDT MANUAL DIFFERENTIAL Routine 04/25/2018 3:31 AM CDT ESTIMATED GFR Routine 04/25/2018 3:31 AM CDT BASIC METABOLIC PANEL Routine 04/25/2018 3:31 AM CDT CBC WITH PLATELET AND Routine 04/25/2018 DIFFERENTIAL 3:31 AM CDT IONIZED CALCIUM Routine 04/25/2018 3:31 AM CDT PHOSPHORUS LEVEL Routine 04/25/2018 3:31 AM CDT MAGNESIUM LEVEL Routine 04/25/2018 3:31 AM CDT POC GLUCOSE Routine 04/25/2018 12:43 AM CDT POC GLUCOSE Routine 04/24/2018 8:32 PM CDT POC GLUCOSE Routine 04/24/2018 4:[address] LUMBAR SPINE WO Routine 04/24/2018 CONTRAST 3:[address] HEAD WO CONTRAST STAT 04/24/2018 3:31 PM CDT POC GLUCOSE Routine 04/24/2018 11:28 AM CDT POC GLUCOSE Routine 04/24/2018 8:54 AM CDT POC GLUCOSE Routine 04/24/2018 4:51 AM CDT B NATRIURETIC PEPTIDE Routine 04/24/2018 3:50 AM CDT ESTIMATED GFR Routine 04/24/2018 3:40 AM CDT PHOSPHORUS LEVEL Routine 04/24/2018 3:40 AM CDT MAGNESIUM LEVEL Routine 04/24/2018 3:40 AM CDT IONIZED CALCIUM Routine 04/24/2018 3:40 AM CDT COMPREHENSIVE METABOLIC Routine 04/24/2018 PANEL 3:40 AM CDT HC COMPLETE BLD COUNT Routine 04/24/2018 W/AUTO DIFF 3:40 AM CDT PROSTATE SPECIFIC ANTIGEN Routine 04/24/2018 3:40 AM CDT POC GLUCOSE Routine 04/24/2018 12:52 AM LABORATORY ENGINEER POC GLUCOSE Routine 04/23/2018 8:55 PM LABORATORY ENGINEER POC GLUCOSE Routine 04/23/2018 4:33 PM LABORATORY ENGINEER POC GLUCOSE Routine 04/23/2018 11:46 AM LABORATORY ENGINEER POC GLUCOSE Routine 04/23/2018 7:38 AM LABORATORY ENGINEER POC GLUCOSE Routine 04/23/2018 4:28 AM LABORATORY ENGINEER ESTIMATED GFR Routine 04/23/2018 4:12 AM LABORATORY ENGINEER MAGNESIUM LEVEL Routine 04/23/2018 4:12 AM LABORATORY ENGINEER PHOSPHORUS LEVEL Routine 04/23/2018 4:12 AM LABORATORY ENGINEER BASIC METABOLIC PANEL Routine 04/23/2018 4:12 AM LABORATORY ENGINEER HC COMPLETE BLD COUNT Routine 04/23/2018 W/AUTO DIFF 4:12 AM LABORATORY ENGINEER POC GLUCOSE Routine 04/23/2018 12:43 AM LABORATORY ENGINEER POC GLUCOSE Routine 04/22/2018 8:36 PM LABORATORY ENGINEER POC GLUCOSE Routine 04/22/2018 4:51 PM LABORATORY ENGINEER US CAROTID DUPLEX Routine 04/22/2018 BILATERAL 2:43 PM LABORATORY ENGINEER FL MODIFIED BARIUM Routine 04/22/2018 SWALLOW 1:36 PM LABORATORY ENGINEER POC GLUCOSE Routine 04/22/2018 12:11 PM LABORATORY ENGINEER ARTERIAL BLOOD GAS Routine 04/22/2018 10:36 AM LABORATORY ENGINEER STREPTOCOCCUS PNEUMONIAE Routine 04/22/2018 URINARY ANTIGEN 10:36 AM LABORATORY ENGINEER LEGIONELLA URINARY Routine 04/22/2018 ANTIGEN 10:36 AM LABORATORY ENGINEER CARBOXYHEMOGLOBIN Routine 04/22/2018 10:13 AM LABORATORY ENGINEER POC GLUCOSE Routine 04/22/2018 8:40 AM LABORATORY ENGINEER XR CHEST 1 VW PORTABLE Routine 04/22/2018 7:54 AM LABORATORY ENGINEER POC GLUCOSE Routine 04/22/2018 5:40 AM LABORATORY ENGINEER MANUAL DIFFERENTIAL Routine 04/22/2018 2:05 AM LABORATORY ENGINEER ESTIMATED GFR Routine 04/22/2018 2:05 AM LABORATORY ENGINEER MAGNESIUM LEVEL Routine 04/22/2018 2:05 AM LABORATORY ENGINEER PHOSPHORUS LEVEL Routine 04/22/2018 2:05 AM LABORATORY ENGINEER BASIC METABOLIC PANEL Routine 04/22/2018 2:05 AM LABORATORY ENGINEER CBC WITH PLATELET AND Routine 04/22/2018 DIFFERENTIAL 2:05 AM LABORATORY ENGINEER POC GLUCOSE Routine 04/22/2018 12:31 AM LABORATORY ENGINEER POC GLUCOSE Routine 04/21/2018 8:32 PM LABORATORY ENGINEER PV TRANSCRANIAL DOPPLER Routine 04/21/2018 INTRACRANIAL ARTERIES 6:20 PM LABORATORY ENGINEER COMPLETE POC GLUCOSE Routine 04/21/2018 4:27 PM LABORATORY ENGINEER POC GLUCOSE Routine 04/21/2018 12:24 PM LABORATORY ENGINEER POC GLUCOSE Routine 04/21/2018 8:24 AM LABORATORY ENGINEER XR CHEST 1 VW PORTABLE Routine 04/21/2018 8:10 AM LABORATORY ENGINEER POC GLUCOSE Routine 04/21/2018 4:38 AM LABORATORY ENGINEER MANUAL DIFFERENTIAL Routine 04/21/2018 3:15 AM LABORATORY ENGINEER LACTIC ACID LEVEL Routine 04/21/2018 3:15 AM LABORATORY ENGINEER ESTIMATED GFR Routine 04/21/2018 3:15 AM LABORATORY ENGINEER B NATRIURETIC PEPTIDE Timed 04/21/2018 3:15 AM LABORATORY ENGINEER LDH Routine 04/21/2018 3:15 AM LABORATORY ENGINEER SEDIMENTATION RATE Routine 04/21/2018 3:15 AM LABORATORY ENGINEER ANTI-NEUTROPHILIC Routine 04/21/2018 CYTOPLASMIC ABS PANEL 3:15 AM LABORATORY ENGINEER CHINTAN Routine 04/21/2018 3:15 AM LABORATORY ENGINEER VITAMIN B12 LEVEL Routine 04/21/2018 3:15 AM LABORATORY ENGINEER VITAMIN D 25 HYDROXY Routine 04/21/2018 LEVEL 3:15 AM LABORATORY ENGINEER HOMOCYSTINE, PLASMA Routine 04/21/2018 3:15 AM LABORATORY ENGINEER LIPID PANEL Routine 04/21/2018 3:15 AM LABORATORY ENGINEER MAGNESIUM LEVEL Routine 04/21/2018 3:15 AM LABORATORY ENGINEER PHOSPHORUS LEVEL Routine 04/21/2018 3:15 AM LABORATORY ENGINEER BASIC METABOLIC PANEL Routine 04/21/2018 3:15 AM LABORATORY ENGINEER CBC WITH PLATELET AND Routine 04/21/2018 DIFFERENTIAL 3:15 AM LABORATORY ENGINEER XR CHEST 1 VW PORTABLE STAT 04/21/2018 1:45 AM LABORATORY ENGINEER ARTERIAL BLOOD GAS STAT 04/21/2018 12:40 AM LABORATORY ENGINEER POC GLUCOSE Routine 04/21/2018 12:27 AM LABORATORY ENGINEER POC GLUCOSE Routine 04/20/2018 8:38 PM LABORATORY ENGINEER VENOUS BLOOD GAS Routine 04/20/2018 6:25 PM LABORATORY ENGINEER ESTIMATED GFR Timed 04/20/2018 6:25 PM LABORATORY ENGINEER BASIC METABOLIC PANEL Timed 04/20/2018 6:25 PM LABORATORY ENGINEER POC GLUCOSE Routine 04/20/2018 6:23 PM LABORATORY ENGINEER POC GLUCOSE Routine 04/20/2018 2:36 PM LABORATORY ENGINEER POC GLUCOSE Routine 04/20/2018 12:56 PM LABORATORY ENGINEER ESTIMATED GFR STAT 04/20/2018 10:10 AM LABORATORY ENGINEER BASIC METABOLIC PANEL STAT 04/20/2018 10:10 AM LABORATORY ENGINEER TROPONIN STAT 04/20/2018 10:10 AM LABORATORY ENGINEER ECHOCARDIOGRAM WITH Routine 04/20/2018 AGITATED SALINE (23086) 9:35 AM LABORATORY ENGINEER MANUAL DIFFERENTIAL STAT 04/20/2018 9:10 AM LABORATORY ENGINEER CBC WITH PLATELET AND STAT 04/20/2018 DIFFERENTIAL 9:10 AM LABORATORY ENGINEER POC GLUCOSE Routine 04/20/2018 8:21 AM LABORATORY ENGINEER TRANSFUSE RED BLOOD CELLS Routine 04/20/2018 6:05 AM LABORATORY ENGINEER POC GLUCOSE Routine 04/20/2018 4:51 AM LABORATORY ENGINEER LACTIC ACID LEVEL Routine 04/20/2018 3:40 AM LABORATORY ENGINEER TROPONIN Routine 04/20/2018 3:40 AM LABORATORY ENGINEER MANUAL DIFFERENTIAL Routine 04/20/2018 3:40 AM LABORATORY ENGINEER LDH Routine 04/20/2018 3:40 AM LABORATORY ENGINEER TOTAL IRON BINDING Routine 04/20/2018 CAPACITY 3:40 AM LABORATORY ENGINEER URIC ACID LEVEL Routine 04/20/2018 3:40 AM LABORATORY ENGINEER FERRITIN LEVEL Routine 04/20/2018 3:40 AM LABORATORY ENGINEER ESTIMATED GFR Routine 04/20/2018 3:40 AM LABORATORY ENGINEER HEMOGLOBIN A1C Routine 04/20/2018 3:40 AM LABORATORY ENGINEER PROTHROMBIN TIME WITH INR Routine 04/20/2018 3:40 AM LABORATORY ENGINEER CBC WITH PLATELET AND Routine 04/20/2018 DIFFERENTIAL 3:40 AM LABORATORY ENGINEER PHOSPHORUS LEVEL Routine 04/20/2018 3:40 AM LABORATORY ENGINEER MAGNESIUM LEVEL Routine 04/20/2018 3:40 AM LABORATORY ENGINEER CREATINE KINASE, TOTAL Routine 04/20/2018 (CPK) 3:40 AM LABORATORY ENGINEER BASIC METABOLIC PANEL Routine 04/20/2018 3:40 AM LABORATORY ENGINEER CREATININE LEVEL, URINE, Routine 04/20/2018 RANDOM 2:20 AM LABORATORY ENGINEER URIC ACID LEVEL, URINE, Routine 04/20/2018 RANDOM 2:20 AM LABORATORY ENGINEER POC GLUCOSE Routine 04/20/2018 1:12 AM LABORATORY ENGINEER US RENAL STAT 04/20/2018 12:08 AM LABORATORY ENGINEER POC GLUCOSE Routine 04/20/2018 12:01 AM LABORATORY ENGINEER POC GLUCOSE Routine 04/19/2018 11:44 PM LABORATORY ENGINEER POC GLUCOSE Routine 04/19/2018 10:[address] CHEST WO CONTRAST STAT 04/19/2018 10:[address] STROKE BRAIN WO STAT 04/19/2018 CONTRAST 10:42 PM LABORATORY ENGINEER PREPARE RBC Routine 04/19/2018 10:11 PM LABORATORY ENGINEER TYPE AND SCREEN Routine 04/19/2018 10:11 PM LABORATORY ENGINEER LACTIC ACID LEVEL STAT 04/19/2018 10:11 PM LABORATORY ENGINEER T4, FREE STAT 04/19/2018 10:11 PM LABORATORY ENGINEER THYROID STIMULATING STAT 04/19/2018 HORMONE 10:11 PM LABORATORY ENGINEER RESPIRATORY PATHOGEN Routine 04/19/2018 PANEL 10:11 PM LABORATORY ENGINEER INFLUENZA ANTIGEN TEST, Routine 04/19/2018 REFLEX NEGATIVE TO RPP 10:11 PM LABORATORY ENGINEER ARTERIAL BLOOD GAS STAT 04/19/2018 10:08 PM LABORATORY ENGINEER US DUPLEX VENOUS LOWER STAT 04/19/2018 EXTREMITY BILATERAL 10:06 PM LABORATORY ENGINEER BLOOD CULTURE, AEROBIC & Routine 04/19/2018 ANAEROBIC 9:12 PM LABORATORY ENGINEER BLOOD CULTURE, AEROBIC & Routine 04/19/2018 ANAEROBIC 9:12 PM LABORATORY ENGINEER URINALYSIS SCREEN AND STAT 04/19/2018 MICROSCOPY, WITH REFLEX 8:48 PM LABORATORY ENGINEER TO CULTURE URINE CULTURE STAT 04/19/2018 8:48 PM LABORATORY ENGINEER XR CHEST 1 VW PORTABLE STAT 04/19/2018 8:21 PM LABORATORY ENGINEER ECG 12-LEAD STAT 04/19/2018 8:[address] CRITICAL CARE, E/M Routine 04/19/2018 30-74 MINUTES 8:15 PM LABORATORY ENGINEER MANUAL DIFFERENTIAL Routine 04/19/2018 8:09 PM LABORATORY ENGINEER ESTIMATED GFR Routine 04/19/2018 8:09 PM LABORATORY ENGINEER B NATRIURETIC PEPTIDE Routine 04/19/2018 8:09 PM LABORATORY ENGINEER TROPONIN Routine 04/19/2018 8:09 PM LABORATORY ENGINEER COMPREHENSIVE METABOLIC Routine 04/19/2018 PANEL 8:09 PM LABORATORY ENGINEER PARTIAL THROMBOPLASTIN Routine 04/19/2018 TIME (PTT) 8:09 PM LABORATORY ENGINEER PROTHROMBIN TIME WITH INR Routine 04/19/2018 8:09 PM LABORATORY ENGINEER CBC WITH PLATELET AND Routine 04/19/2018 DIFFERENTIAL 8:09 PM LABORATORY ENGINEER after 08/24/2017 Results * Us duplex venous lower extremity (07/22/2018 3:19 PM CDT) Only the most recent of 2 results within the time period is included. Specimen Narrative Performed At [facility] Vascular Ultrasound Laboratory Lower Extremity Venous Report [id number] [address].Name:JOEL PLASCENCIA Pat.ID:[id number] .Date: 07/22/2018Refer.MD:ANGELIQUE FUENTES MD Exam Time: 2:29:00 PMStudy Type:LE Venous Height:65inWeight:202lb BSA: 1.99 m2 DOBAge:1935,82Y Sex: MALESonogrphr: Mauricio Charlton, RVT, RDMS Pat. Stat.:Inpatient Room:[address] TapeVol: MEREDITH, CPT - 4: 94288 Echo Event ID:[id number] Order ID:[id number] Reason for Study:Leg swelling. PMH of HTN, COPD, CKD4, CHF, HLD. Procedures:Colorflow, Grayscale/2D, Pulsed wave Doppler Race:C SUMMARY: DUPLEX SCAN OBSERVATIONS Deep VeinsSuperficial Veins RightLeft RightLeft EIV GSV (prox) NormalNormal CFV Normal Normal (above knee) Femoral Normal Normal GSV (dist) Normal Normal Profunda Normal Normal (below knee) Popliteal Normal Normal PT (prox) Normal NormalSSV Not Visualized Normal PT (dist) Normal Normal Peroneal Normal Normal RIGHT: There is normal compressibility with no evidence of echogenic material noted within the lumen of the visualized veins.Colorflow and Doppler signals are normal. LEFT: There is normal compressibility with no evidence of echogenic material noted within the lumen of the visualized veins.Colorflow and Doppler signals are normal. PRELIMINARY FINDINGS 1. No evidence of venous thrombosis in the visualized veins . PHYSICIAN INTERPRETATION Venous examination of the both lower extremities demonstrated no evidence of venous thrombosis in the visualized veins.Normal compressibility and augmentation of all veins visualized. Signed 07/22/2018 03:58 PM Saurabh Gomez MD, RPVI Procedure Note Interface, Radiology Results In - 07/22/2018 3:58 PM CDT Vascular Ultrasound Laboratory Lower Extremity Venous Report [id number] [place] [address] Pat.Name: JOEL PLASCENCIA Pat.ID: [id number] .Date: 07/22/2018 Refer.MD: ANGELIQUE FUENTES MD Exam Time: 2:29:00 PM Study Type:LE Venous Height: 65in Weight: 202lb BSA: 1.99 m2 Age: 6 1935,82Y Sex: MALE Sonogrphr: Mauricio Charlton RVT, RDMS Pat. Stat.:Inpatient Room: [address] Tape Vol: MEREDITH, CPT - 4: 68100 Echo Event ID:[id number] Order ID: [id number] Reason for Study:Leg swelling. PMH of HTN, COPD, CKD4, CHF, HLD. Procedures:Colorflow, Grayscale/2D, Pulsed wave Doppler Race: C SUMMARY: DUPLEX SCAN OBSERVATIONS Deep Veins Superficial Veins Right Left Right Left EIV GSV (prox) Normal Normal CFV Normal Normal (above knee) Femoral Normal Normal GSV (dist) Normal Normal Profunda Normal Normal (below knee) Popliteal Normal Normal PT (prox) Normal Normal SSV Not Visualized Normal PT (dist) Normal Normal Peroneal Normal Normal RIGHT: There is normal compressibility with no evidence of echogenic material noted within the lumen of the visualized veins.Colorflow and Doppler signals are normal. LEFT: There is normal compressibility with no evidence of echogenic material noted within the lumen of the visualized veins.Colorflow and Doppler signals are normal. PRELIMINARY FINDINGS 1. No evidence of venous thrombosis in the visualized veins . PHYSICIAN INTERPRETATION Venous examination of the both lower extremities demonstrated no evidence of venous thrombosis in the visualized veins. Normal compressibility and augmentation of all veins visualized. Signed 07/22/2018 03:58 PM Saurabh Gomez MD, RPVI Performing Organization Address City/State/Zipcode Phone Number [facility] [phone] [place] [address] * XR Chest 1 Vw Portable (07/22/2018 1:09 PM CDT) Only the most recent of 13 results within the time period is included. Specimen Narrative Performed At EXAMINATION: XR CHEST 1 VW PORTABLE RADIANT INDICATION: CHF COMPARISON: 07/21/2018 IMPRESSION: Diffuse hazy and reticular opacities, compatible with moderate pulmonary edema, not significantly changed compared to prior examination. Low lung volumes. Small bilateral pleural effusions. No pneumothorax. Unchanged enlarged cardiomediastinal silhouette. Unchanged osseous structures. [facility]-[id number] Procedure Note Hm Interface, Radiology Results Incoming - 07/22/2018 1:16 PM CDT EXAMINATION: XR CHEST 1 VW PORTABLE INDICATION: CHF COMPARISON: 07/21/2018 IMPRESSION: Diffuse hazy and reticular opacities, compatible with moderate pulmonary edema, not significantly changed compared to prior examination. Low lung volumes. Small bilateral pleural effusions. No pneumothorax. Unchanged enlarged cardiomediastinal silhouette. Unchanged osseous structures. [facility]-[id number] Performing Organization Address City/State/Zipcode Phone Number [facility] [phone] [place] [address] * CBC with platelet and differential (07/22/2018 4:30 AM CDT) Only the most recent of 38 results within the time period is included. WBC 4.78 4.50 - 11.00 k/uL [facility] RBC 2.72 (L) 4.40 - 6.00 m/uL [facility] HGB 7.9 (L) 14.0 - 18.0 g/dL [facility] HCT 27.0 (L) 41.0 - 51.0 % [facility] MCV 99.3 82.0 - 100.0 fL [facility] MCH 29.0 27.0 - 34.0 pg [facility] MCHC 29.3 (L) 31.0 - 37.0 g/dL [facility] RDW - SD 58.1 (H) 37.0 - 55.0 fL [facility] MPV 12.7 8.8 - 13.2 fL [facility] Platelet count 103 (L) 150 - 400 k/uL [facility] Nucleated RBC 0.00 /100 WBC [facility] Neutrophils 54.7 39.0 - 69.0 % [facility] Lymphocytes 35.1 25.0 - 45.0 % [facility] Monocytes 7.7 0.0 - 10.0 % [facility] Eosinophils 0.0 0.0 - 5.0 % [facility] Basophils 0.2 0.0 - 1.0 % [facility] Immature 2.3 (H)Comment: "Immature 0.0 - 1.0 % [facility] granulocytes granulocytes" (promyelocytes, [facility] myelocytes, metamyelocytes) HOSPITAL Specimen Blood Performing Organization Address City/[facility] Phone Number [facility] [address] PATHOLOGY AND GENOMIC MEDICINE [address] * Estimated GFR (07/22/2018 4:00 AM CDT) Only the most recent of 43 results within the time period is included. [facility] Estimated GFR 22 (A) mL/min/1.73 m2 [facility] Comment: [facility] rpretation G1 >=90 Normal or high G2 60-89Mildly decreased [id number] Mildly to moderately decreased [id number] Moderately to severely decreased G4 15-29Severely decreased G5 <15Kidney failure The eGFR was calculated using the Chronic Kidney Disease Epidemiology Collaboration (CKD-EPI) equation. Interpretation is based on recommendations of the National Kidney Foundation-Kidney Disease Outcomes Quality Initiative (NKF-KDOQI) published in 2014. Specimen Plasma specimen Performing Organization Address [facility] Phone Number [facility] [place] [address] PATHOLOGY AND [facility] MEDICINE [address] * Magnesium level (07/22/2018 4:00 AM CDT) Only the most recent of 21 results within the time period is included. [facility] Magnesium 2.5 (H) 1.6 - 2.4 mg/dL [facility] Specimen Plasma specimen Performing Organization Address City/[facility] & [facility]/Zipcode Phone Number [facility] [place] [address] PATHOLOGY AND GENOMIC MEDICINE [address] * Comprehensive metabolic panel (07/22/2018 4:00 AM CDT) Only the most recent of 6 results within the time period is included. [facility] Sodium 146 135 - 148 mEq/L [facility] Potassium 3.9 3.5 - 5.0 mEq/L [facility] Chloride 100 98 - 112 mEq/L [facility] CO2 28 24 - 31 mEq/L [facility] Anion gap 18@ANIO (H) 7 - 15 mEq/L [facility] BUN 60 (H) 8 - 23 mg/dL [facility] Creatinine 2.58 (H) 0.70 - 1.20 mg/dL [facility] Glucose 216 (H) 65 - 99 mg/dL [facility] Calcium 8.5 (L) 8.8 - 10.2 mg/dL [facility] Protein 6.0 (L) 6.3 - 8.3 g/dL [facility] Comment: [facility] 4.6-7.0 g/dL 1 week 4.4-7.6 g/dL 7 months-1year 5.1-7.3 g/dL 1-2 years5.6-7 .5 g/dL >3 years6.0-8 .0 g/dL 18-150 6.3-8.3 g/dL Albumin 2.7 (L) 3.5 - 5.0 g/dL [facility] A/G ratio 0.8 0.7 - 3.8 [facility] Alkaline 50 40 - 129 U/L [facility] phosphatase [facility] AST 23 10 - 50 U/L [facility] ALT 21 5 - 50 U/L [facility] Total bilirubin 0.8 0.0 - 1.2 mg/dL [facility] Specimen Plasma specimen Performing Organization Address City/[facility] [place] [address] PATHOLOGY AND GENOMIC MEDICINE [address] * Streptococcus pneumoniae urinary antigen (07/22/2018 2:45 AM CDT) Only the most recent of 2 results within the time period is included. Pathologist [facility] Strep pneumo Negative for Streptococcus [facility] urinary Ag pneumoniae antigen. [facility] Comment: HOSPITAL Specimen Information Specimen Source: Urine Specimen Site: Clean catch Specimen Urine Performing Organization Address City/[facility]/Zipcode Phone Number [facility] [place] [address] PATHOLOGY AND GENOMIC MEDICINE [address] * Legionella urinary antigen (07/22/2018 2:45 AM CDT) Only the most recent of 2 results within the time period is included. Pathologist [facility] Legionella Negative for Legionella [facility] urinary antigen serogroup 1 antigen. [facility] Comment: HOSPITAL Specimen Information Specimen Source: Urine Specimen Site: Clean catch Specimen Urine Performing Organization Address City/[facility]/Zipcode Phone Number [facility] [place] [address] PATHOLOGY AND [facility] MEDICINE [address] * POC glucose (07/21/2018 8:55 PM CDT) Only the most recent of 219 results within the time period is included. [facility] POC glucose 179 (H) 65 - 99 mg/dL [facility] Comment: [facility] Meter ID: [id number] HOSPITAL Java [id number] Lead: Carli Howell Specimen Performing Organization Address City/[facility]/Zipcode Phone Number [facility] [place] [place] [address] PATHOLOGY AND [facility] MEDICINE [address] * Lactic acid level, SEPSIS - Now and repeat 2x every 3 hours (07/21/2018 6:10 PM CDT) Only the most recent of 3 results within the time period is included. [facility] Lactic acid 0.9 0.5 - 2.2 mmol/L [facility] Specimen Blood Performing Organization Address City/[facility] Phone Number [facility] [place] [address] PATHOLOGY AND [facility] MEDICINE [address] * Troponin (07/21/2018 6:10 PM CDT) Only the most recent of 6 results within the time period is included. [facility] Troponin 0.037 0.000 - 0.040 ng/mL [facility] Comment: [facility] changed methodology effective: 06/21/2018 at 10:00 am The new method has a 99th percentile cutoff of 0.040 ng/mL Specimen Plasma specimen Performing Organization Address [facility]/Zipcode Phone Number [facility] [place] [place] [address] PATHOLOGY AND [facility] MEDICINE [address] * CT Chest Wo Contrast (07/21/2018 2:21 PM CDT) Only the most recent of 2 results within the time period is included. Specimen Narrative Performed At EXAMINATION: RADIANT CT CHEST WO CONTRAST CLINICAL HISTORY: eval for pna v.s pulm edema TECHNIQUE:Multiple axial images of the chest were obtained without intravenous contrast. The lack of intravenous contrast reduces the sensitivity of detecting solid organ disease and evaluating vasculature. Sagittal and coronal computerized reformatted images were also obtained. CT imaging was performed with iterative reconstruction techniques and/or automated exposure control to reduce radiation dose. COMPARISON: To a previous examination from 04/19/2018 and a chest x-ray from earlier in the day IMPRESSION: 1.No hilar or mediastinal lymphadenopathy is appreciated. Extensive coronary artery calcifications are present. 2.Extensive groundglass attenuation is noted along with some areas of consolidation in both upper lobes. Interlobular septal thickening is present diffusely. This is in association with peribronchial vascular areas of consolidation in both lower lobes, and the findings may be related to bronchopneumonia superimposed on congestive changes. 3.Diffuse lymphangitic metastatic disease could produce a similar picture but is felt to be much less likely. 4.A pleural effusion is not present. 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 [id number] Procedure Note Interface, Radiology Results Incoming - 07/21/2018 2:33 PM CDT EXAMINATION: CT CHEST WO CONTRAST CLINICAL HISTORY: eval for pna v.s pulm edema TECHNIQUE: Multiple axial images of the chest were obtained without intravenous contrast. The lack of intravenous contrast reduces the sensitivity of detecting solid organ disease and evaluating vasculature. Sagittal and coronal computerized reformatted images were also obtained. CT imaging was performed with iterative reconstruction techniques and/or automated exposure control to reduce radiation dose. COMPARISON: To a previous examination from 04/19/2018 and a chest x-ray from earlier in the day IMPRESSION: 1. No hilar or mediastinal lymphadenopathy is appreciated. Extensive coronary artery calcifications are present. 2. Extensive groundglass attenuation is noted along with some areas of consolidation in both upper lobes. Interlobular septal thickening is present diffusely. This is in association with peribronchial vascular areas of consolidation in both lower lobes, and the findings may be related to bronchopneumonia superimposed on congestive changes. 3. Diffuse lymphangitic metastatic disease could produce a similar picture but is felt to be much less likely. 4. A pleural effusion is not present. 5. 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 [id number] Performing Organization Address City/State/[place] [address] * Venous blood gas (07/21/2018 11:59 AM CDT) Only the most recent of 2 results within the time period is included. pH, venous 7.47 (H) 7.32 - 7.42 [facility] pCO2, venous 41 (L) 45 - 51 mmHg [facility] pO2, venous 179 (H) 25 - 40 mmHg [facility]VE[facility] Comment: [facility] Specimen received with air HOSPITAL bubble in syringe.Interpret results accordingly. Base excess, 6 (H) -2 - 2 meq/L [facility] O2 saturation, 100 (H) 40 - 70 % [facility] Bicarbonate, 29.4 (H) 21.0 - 28.0 mmol/L [facility] Specimen Blood Performing Organization Address [facility] Phone Number [facility] DEPARTMENT OF [address] [place] [address] PATHOLOGY AND GENOMIC MEDICINE [address] * Respiratory pathogen panel (07/21/2018 11:52 AM CDT) Only the most recent of 3 results within the time period is included. Pathologist [facility] Respiratory Negative for all pathogens [facility] pathogen panel tested: [facility] Negative for Adenovirus [facility] Negative for Coronavirus HKU1 Negative for Coronavirus NL63 Negative for Coronavirus 229E Negative for Coronavirus OC43 Negative for Human Metapneumovirus Negative for Rhinovirus/Enterovirus Negative for Influenza A Negative for Influenza A/H1 Negative for Influenza A/H3 Negative for Influenza A/H1-2009 Negative for Influenza B Negative for Parainfluenza Virus 1 Negative for Parainfluenza Virus 2 Negative for Parainfluenza Virus 3 Negative for Parainfluenza Virus 4 Negative for Respiratory Syncytial Virus Negative for Bordetella pertussis Negative for Chlamydophila pneumoniae Negative for Mycoplasma pneumoniae This real-time PCR assay detects the presence of nucleic acids (RNA or DNA) for the respiratory pathogens listed. A result of "Not-detected" does not exclude the possibility of the presence of one or more pathogens at concentrations less than the detectable limits of the assay. Comment: Specimen Information Specimen Source: Nares Specimen Site: Right Specimen Nares - Right Performing Organization Address City/[facility]/Zipcode Phone Number [facility] DEPARTMENT OF [address] [place] [address] [facility] [address] [place] [address] * Influenza antigen test, reflex negative to RPP (07/21/2018 11:52 AM CDT) Only the most recent of 2 results within the time period is included. [facility] Influenza Negative for Influenza A/B [facility] antigen antigen. [facility] Comment: HOSPITAL Specimen Information Specimen Source: Nares Specimen Site: Right Specimen Nares - Right Performing Organization Address [facility] Hospital[facility] Phone Number [facility] [place] [place] [address] [facility] [address] [place] [address] * Blood culture, aerobic & anaerobic (07/21/2018 11:45 AM CDT) Only the most recent of 4 results within the time period is included. [facility] Blood culture No growth after 5 days of [facility]VE[facility] isolate incubation. [facility] Comment: HOSPITAL Specimen Information Specimen Source: Blood Specimen Site: Antecubital, left Specimen Blood - Antecubital, left Performing Organization Address [facility] Phone Number [facility] [place] [address] [facility] [address] [place] [address] * Partial thromboplastin time, activated (07/21/2018 11:41 AM CDT) Only the most recent of 3 results within the time period is included. [facility] PTT 31.0 23.0 - 36.0 sec [facility]VENAL Comment: [facility] PTT therapeutic range for HOSPITAL unfractionated heparin is 61.0-112.0 seconds which corresponds to Anti-Xa 0.3-0.7 U/ml. Specimen Blood Performing Organization Address [facility] Phone Number [facility] [place] [place] [address] [facility] [address] [place] [address] * Prothrombin time with INR (07/21/2018 11:41 AM CDT) Only the most recent of 4 results within the time period is included. [facility] Prothrombin 13.5 11.5 - 14.5 sec [facility] INR 1.1 [facility]VENAL Comment: [facility] The International Normalized HOSPITAL Ratio (INR) is a therapeutic monitoring tool for patients who are stable on oral anticoagulant therapy. An INR of 2.0-3.0 is suggested for deep vein thrombosis/pulmonary embolism. Specimen Blood Performing Organization Address City/[facility] Phone Number [facility] DEPARTMENT OF [address] [place] [address] PATHOLOGY AND [facility] MEDICINE [address] * D-dimer (07/21/2018 11:41 AM CDT) Only the most recent of 2 results within the time period is included. Pathologist [facility] D-dimer 2.56 (H) 0.00 - 0.40 ug/mL [facility]VENAL Comment: FEU [facility] Units are ug/ml Fibrinogen HOSPITAL Equivalent Unit. When combined with low clinical probability, D-dimer results of less than 0.5 ug/ml FEU have a good negativepredictive value in excluding PE or DVT. For D-dimer results greater than 0.5ug/ml FEU further testing is indicated if PE or DVT is suspectedclinically. Elevated D-dimer results have been reported in DVT, PE, and DIC cases and may indicate the presence of a clot. D-dimer results may be elevated due to old age, , inflammatory diseases, trauma, post-operative states, sepsis, and malignancies. Specimen Blood Performing Organization Address City/[facility] Phone Number [facility] [place] [place] [address] PATHOLOGY AND [facility] MEDICINE [address] * Type and screen (07/21/2018 11:41 AM CDT) Only the most recent of 2 results within the time period is included. ABO grouping A [facility] Rh type NEG [facility] Antibody screen NEG [facility] (gel) [facility] Specimen Blood Performing Organization Address City/State/Zipcode Phone Number [facility] [place] [address] PATHOLOGY AND GENOMIC MEDICINE [address] * B natriuretic peptide (07/21/2018 11:41 AM CDT) Only the most recent of 7 results within the time period is included. BNP 144 (H) 0 - 100 pg/mL [facility] Specimen Blood Performing Organization Address City/[facility] Phone Number [facility] [place] [address] PATHOLOGY AND GENOMIC MEDICINE [address] * Creatine kinase, total (CPK) (07/21/2018 11:41 AM CDT) Only the most recent of 2 results within the time period is included. Creatine kinase 39 39 - 308 U/L [facility] Specimen Plasma specimen Performing Organization Address [facility]code Phone Number [facility] [place] [address] PATHOLOGY AND GENOMIC MEDICINE [address] * ECG 12 lead (07/21/2018 10:51 AM CDT) Only the most recent of 3 results within the time period is included. Ventricular 71 [facility]USE rate Atrial rate [address] interval 184 [facility] QRSD interval 92 [facility] QT interval 422 [facility] QTC interval 458 [facility] P axis 1 39 [facility] M[facility] QRS axis 1 26 [facility] MUSE T wave axis 66 [facility] MUSE EKG impression Normal sinus rhythm with sinus [facility] MUSE arrhythmia-Normal ECG- Specimen Narrative Performed At Performing Organization Address [facility] Phone Number [facility] MUSE [address] [place] [address] * Erythropoietin (06/23/2018 2:00 PM CDT) Erythropoietin 42.2 (H) 2.6 - 18.5 mIU/mL [facility] Specimen Serum Performing Organization Address City/[facility]/Zipcode Phone Number [facility] [place] [address] PATHOLOGY AND GENOMIC MEDICINE [address] * Manual differential (06/23/2018 2:00 PM CDT) Only the most recent of 24 results within the time period is included. Manual PERFORMED [facility] Neutrophils 56.0 39.0 - 69.0 % [facility] Lymphocytes 39.0 25.0 - 45.0 % [facility] Monocytes 5.0 0.0 - 10.0 % [facility] Eosinophils 0.0 0.0 - 5.0 % [facility] Basophils 0.0 0.0 - 1.0 % [facility] Metamyelocytes 0 % [facility] Promyelocytes 0 % [facility] Platelet slide Decreased (A) [facility] Anisocytosis Moderate [facility] Polychromasia Moderate [facility] Tear drop cells Occasional [facility] Spherocytes Occasional [facility] Ovalocytes Moderate [facility] Specimen Performing Organization Address City/[facility] Phone Number [facility] [place] [place] [address] PATHOLOGY AND [facility] MEDICINE [address] * Ferritin level (06/23/2018 2:00 PM CDT) Only the most recent of 2 results within the time period is included. [facility] Ferritin level 663 (H) 30 - 400 ng/mL [facility] Specimen Plasma specimen Performing Organization Address City/[facility] Phone Number [facility] [place] [address] PATHOLOGY AND GENOMIC MEDICINE [address] * Creatinine level (06/23/2018 2:00 PM CDT) [facility] Creatinine 2.37 (H) 0.70 - 1.20 mg/dL [facility] Specimen Plasma specimen Performing Organization Address [facility] Phone Number [facility] [place] [address] PATHOLOGY AND GENOMIC MEDICINE [address] * Basic metabolic panel (05/31/2018 5:45 AM CDT) Only the most recent of 36 results within the time period is included. [facility] Sodium 144 135 - 148 mEq/L [facility] Potassium 4.2 3.5 - 5.0 mEq/L [facility] Chloride 103 98 - 112 mEq/L [facility] CO2 24 24 - 31 mEq/L [facility] Anion gap 17@ANIO (H) 7 - 15 mEq/L [facility] BUN 73 (H) 8 - 23 mg/dL [facility] Creatinine 2.45 (H) 0.70 - 1.20 mg/dL [facility] Glucose 130 (H) 65 - 99 mg/dL [facility] Calcium 8.8 8.8 - 10.2 mg/dL [facility] Specimen Plasma specimen Performing Organization Address City/State/Zipcode Phone Number [facility] DEPARTMENT OF [address] [place] [address] PATHOLOGY AND GENOMIC MEDICINE [address] * Spirometry pre & post w/ bronchodilator, MIPS/MEPS (05/26/2018 2:46 PM CDT) FEV1 Post 1.07 1.51 - 2.91 L [facility] FEV1/FVC % Post 72.81 61.03 - 80.39 % [facility] FVC Post 1.47 2.37 - 4.03 L [facility] PEF Post 2.46 3.78 - 7.90 L/s [facility] FEF 25-75% Post 0.77 -0.01 - 2.83 L/s [facility] FEV1 Pre 0.94 1.51 - 2.91 L [facility] FEV1/FVC % Pre 69.59 61.03 - 80.39 % [facility] FVC Pre 1.35 2.37 - 4.03 L [facility] PEF Pre 2.05 3.78 - 7.90 L/s [facility] FEF 25-75% Pre 0.58 -0.01 - 2.83 L/s [facility] FEV1 Predicted 2.21 [facility] FEV1 LLN 1.51 [facility] FEV1 % Pre of 42.7 % [facility] Predicted FEV1 % Post of 48.3 % [facility] Predicted FEV1 % Change 13.1 % [facility] FVC Predicted 3.20 [facility] FVC LLN 2.37 [facility] FVC % Pre of 42.3 % [facility] Predicted FVC % Post of 45.8 % [facility] Predicted FVC % Change 8.1 % [facility] FEV1/FVC % 71 [facility] Predicted FEV1/FVC % LLN 61 [facility] FEV1/FVC % Pre 98.4 % [facility] of Predicted FEV1/FVC % Post 103.0 % [facility] of Predicted FEV1/FVC % 4.6 % [facility] Change FEF 25-75% 1.41 [facility] Predicted FEF 25-75% LLN -0.01 [facility] FEF 25-75% % 40.9 % [facility] Pre of Predicted FEF 25-75% % 54.7 % [facility] Post of Predicted FEF 25-75% % 33.7 % [facility] Change PEF Predicted 5.84 [facility] PEF LLN 3.78 [facility] PEF % Pre of 35.2 % [facility] Predicted PEF % Post of 42.1 % [facility] Predicted PEF % Change 19.6 % [facility] Specimen Narrative Performed At Performing Organization Address City/State/[place] [address] * Potassium level (05/21/2018 5:55 PM CDT) Potassium 5.4 (H) 3.5 - 5.0 mEq/L [facility] Specimen Plasma specimen Performing Organization Address City/State/Zipcode Phone Number [facility] DEPARTMENT OF [address] [place] [address] PATHOLOGY AND GENOMIC MEDICINE [address] * XR Chest 2 Vw (05/19/2018 4:08 PM CDT) Specimen Narrative Performed At Examination:XR CHEST 2 VW RADIANT Clinical History: Shortness of breath Comparison: 05/12/2018 Technique: Frontal and lateral views of the chest Impression: Left greater than right basilar opacities are similar to prior, likely atelectasis. Pneumonia cannot be excluded in particular in the left lower lobe. Overall appearance is similar. No significant pleural effusion. The heart is borderline enlarged. Vascular congestion with mild interstitial edema suggested. [facility]-[id number] Procedure Note Hm Interface, Radiology Results Incoming - 05/19/2018 4:15 PM CDT Examination: XR CHEST 2 VW Clinical History: Shortness of breath Comparison: 05/12/2018 Technique: Frontal and lateral views of the chest Impression: Left greater than right basilar opacities are similar to prior, likely atelectasis. Pneumonia cannot be excluded in particular in the left lower lobe. Overall appearance is similar. No significant pleural effusion. The heart is borderline enlarged. Vascular congestion with mild interstitial edema suggested. [facility]-[id number] Performing Organization Address City/[facility]/[place] [address] * Urinalysis screen and microscopy, with reflex to culture (05/19/2018 2:50 PM CDT) Only the most recent of 2 results within the time period is included. Specimen site Clean catch [facility] Color, UA Straw [facility] Appearance, UA Clear [facility] Specific 1.014 1.001 - 1.035 [facility]VE[facility] gravity, [facility] pH, UA 5.0 5.0 - 8.5 [facility] Protein, UA Negative Negative [facility] Glucose, UA Negative Negative [facility] Ketones, UA Negative Negative [facility] Bilirubin, UA Negative Negative [facility] Blood, UA Negative Negative [facility] Nitrite, UA Negative Negative [facility] Urobilinogen, <2.0 <2.0 [facility] Leukocyte Negative Negative [facility]VE[facility] esterase, [facility] Epithelial <1 /HPF [facility] WBC, UA None seen 0 - 1 /HPF [facility] RBC, UA None seen 0 - 5 /HPF [facility] Bacteria, UA None seen None seen [facility] [facility] Yeast, UA None seen [facility] Yeast with None seen [facility]NAL [facility] Hyaline casts, 2 /LPF [facility] Specimen Urine Performing Organization Address City/[facility] Phone Number [facility] [place] [address] PATHOLOGY AND GENOMIC MEDICINE [address] * Urine culture (05/19/2018 2:50 PM CDT) Only the most recent of 2 results within the time period is included. Urine culture SEE COMMENTComment: AVENAL Bacteriuria screen negative. [facility] Specimen Performing Organization Address City/[facility]/Zipcode Phone Number [facility] [place] [address] PATHOLOGY AND GENOMIC MEDICINE [address] * ABSTRACTED LVEF (05/18/2018 11:33 AM CDT) LV EF 65 % Specimen * Peripheral smear (05/17/2018 3:15 AM CDT) Only the most recent of 2 results within the time period is included. Peripheral Done AVENAL smear Comment: [facility] Peripheral smear is located in HOSPITAL Hematology Laboratory, second floor of [facility]. Specimen Blood Performing Organization Address City/State/Zipcode Phone Number [facility] DEPARTMENT OF [address] [place] [address] PATHOLOGY AND GENOMIC MEDICINE [address] * Serum electrophoresis (05/16/2018 3:29 PM CDT) Only the most recent of 2 results within the time period is included. Protein 5.9 (L) 6.3 - 8.3 g/dL AVENAL Comment: [facility] HOSPITAL 4.6-7.0 g/dL 1 week 4.4-7.6 g/dL 7 months-1year 5.1-7.3 g/dL 1-2 years5.6-7 .5 g/dL >3 years6.0-8 .0 g/dL 18-150 6.3-8.3 g/dL SPE albumin 4.40 4.00 - 5.30 g/dL [facility] SPE alpha 1 0.12 0.10 - 0.25 g/dL [facility] SPE alpha 2 0.65 0.58 - 0.84 g/dL [facility] SPE beta 0.47 (L) 0.50 - 1.10 g/dL [facility] SPE gamma 0.25 (L) 0.60 - 1.30 g/dL [facility] SPE extended See CommentComment: Total AVENAL interpretation protein is decreased, and [facility] gamma globulins are moderately HOSPITAL decreased. SPE See CommentComment: HOMERO Godinez interpretation ; Kia Dodd, PhD; Darnell Ohara MD [facility] Specimen Serum Performing Organization Address City/State/Zipcode Phone Number [facility] DEPARTMENT OF [address] [place] [address] PATHOLOGY AND GENOMIC MEDICINE [address] * Phosphorus level (05/15/2018 5:25 AM CDT) Only the most recent of 18 results within the time period is included. Phosphorus 2.8 2.4 - 4.5 mg/dL [facility] Specimen Plasma specimen Performing Organization Address City/[facility]/Zipcode Phone Number [facility] DEPARTMENT OF [address] [place] [address] PATHOLOGY AND GENOMIC MEDICINE [address] * Smear review (05/14/2018 5:40 AM CDT) Only the most recent of 2 results within the time period is included. Platelet slide Mkd decreased (A) AVENAL review [facility] Anisocytosis Moderate [facility] Polychromasia Moderate [facility] Tear drop cells Occasional [facility] Schistocytes Occasional [facility] Ovalocytes Moderate [facility] Ebony cells Moderate (A) [facility] Enlarged Moderate (A) [facility] Reactive Few AVENAL lymphocytes [facility] Specimen Performing Organization Address [facility] Phone Number [facility] DEPARTMENT OF [address] [place] [address] PATHOLOGY AND GENOMIC MEDICINE [address] * FL Modified Barium Swallow (05/13/2018 2:46 PM CDT) Only the most recent of 2 results within the time period is included. Specimen Narrative Performed At EXAMINATION:FL MODIFIED BARIUM SWALLOW [facility] CLINICAL HISTORY:Dysphagia unspecified; respiratory failure COMPARISON:None. [facility] EXPOSURE: 10.5 mGy air kerma TECHNIQUE: The patient swallowed varying consistencies of barium under direct lateral fluoroscopic evaluation. The study was performed in conjunction with speech pathology. IMPRESSION: There is aspiration during swallowing of thin liquids. There was penetration during swallowing of nectar consistency. Some improvement was seen with the chin-tuck maneuver. Please refer to Speech Pathology report for further details. [facility]-[id number] Procedure Note Hm Interface, Radiology Results Incoming - 05/13/2018 3:17 PM CDT EXAMINATION: [place] MODIFIED BARIUM SWALLOW CLINICAL HISTORY: Dysphagia unspecified; respiratory failure COMPARISON: None. RADIATION EXPOSURE: 10.5 mGy air kerma TECHNIQUE: The patient swallowed varying consistencies of barium under direct lateral fluoroscopic evaluation. The study was performed in conjunction with speech pathology. IMPRESSION: There is aspiration during swallowing of thin liquids. There was penetration during swallowing of nectar consistency. Some improvement was seen with the chin-tuck maneuver. Please refer to Speech Pathology report for further details. [facility]-[id number] Performing Organization Address City/[facility]/[place] [address] * Sputum culture (05/11/2018 10:20 AM CDT) Only the most recent of 2 results within the time period is included. [facility] Sputum culture Normal oral rach isolated. AVENAL isolate Comment: [facility] Specimen Information HOSPITAL Specimen Source: Sputum Specimen Site: Expectorated Specimen Sputum - Expectorated Performing Organization Address City/[facility]/Zipcode Phone Number [facility] [place] [address] PATHOLOGY AND [facility] MEDICINE [address] * Gram stain (05/11/2018 10:20 AM CDT) Only the most recent of 2 results within the time period is included. [facility] Gram stain Many WBC's AVENAL isolate No organisms seen [facility] Comment: HOSPITAL Specimen Information Specimen Source: Sputum Specimen Site: Expectorated Specimen Sputum - Expectorated Performing Organization Address City/[facility] Phone Number [facility] [place] [place] [address] PATHOLOGY AND [facility] MEDICINE [address] * Fibrinogen (05/08/2018 6:10 AM CDT) [facility] Fibrinogen 610 (H) 200 - 450 mg/dL [facility] Specimen Blood Performing Organization Address [facility] Phone Number [facility] [place] [place] [address] PATHOLOGY AND GENOMIC MEDICINE [address] * Reticulocyte count (05/08/2018 6:10 AM CDT) [facility] Retic %, auto 2.0 0.5 - 2.1 % [facility] Retic absolute, 0.0560 0.0220 - 0.1260 m/uL AVENAL auto [facility] Specimen Blood Performing Organization Address [facility] Phone Number [facility] [place] [address] PATHOLOGY AND GENOMIC MEDICINE [address] * LDH (05/08/2018 6:10 AM CDT) Only the most recent of 3 results within the time period is included. [facility] LDH 329 (H) 87 - 225 U/L [facility] Specimen Plasma specimen Performing Organization Address City/[facility]/Zipcode Phone Number [facility] [place] [address] PATHOLOGY AND GENOMIC MEDICINE [address] * Folate level (05/08/2018 6:10 AM CDT) Pathologist [facility] Folate 14.1 4.8 - 24.2 ng/mL [facility] Specimen Serum Performing Organization Address City/[facility]code Phone Number [facility] [place] [address] PATHOLOGY AND GENOMIC MEDICINE [address] * Vitamin B12 level (05/08/2018 6:10 AM CDT) Only the most recent of 2 results within the time period is included. Pathologist [facility] Vitamin B12 616 211 - 946 pg/mL AVENAL Comment: [facility] Significant overlap exists HOSPITAL between normal and deficiency states. However, most patients with deficiencies will have Serum B12 <200 pg/mL. Specimen Serum Performing Organization Address [facility] Phone Number [facility] [place] [address] PATHOLOGY AND GENOMIC MEDICINE [address] * Heparin PF4 antibody (IgG) (05/07/2018 10:33 AM CDT) Only the most recent of 2 results within the time period is included. Heparin PF4 Ab 0.061 0.000 - 0.399 AVENAL OD reading [facility] Heparin PF4 Ab, Negative Negative AVENAL IgG [facility] Specimen Blood Performing Organization Address [facility] Phone Number [facility] DEPARTMENT OF [address] [place] [address] PATHOLOGY AND GENOMIC MEDICINE [address] * Lactic acid level (05/05/2018 9:08 PM CDT) Only the most recent of 4 results within the time period is included. Pathologist [facility] Lactic acid 1.5 0.5 - 2.2 mmol/L [facility] Specimen Blood Performing Organization Address City/[facility]/Zipcode Phone Number [facility] [place] [address] PATHOLOGY AND GENOMIC MEDICINE [address] * Ionized calcium (05/05/2018 4:00 AM CDT) Only the most recent of 12 results within the time period is included. pH 7.51 [facility] Ionized calcium 0.91 (L) 1.11 - 1.32 mmol/L [facility] Specimen Plasma specimen Performing Organization Address [facility]code Phone Number [facility] [place] [address] PATHOLOGY AND [facility] MEDICINE [address] * Immunoglobulin G (05/02/2018 3:50 AM CDT) Pathologist [facility] IgG 622 (L) 700 - 1,600 mg/dL [facility] Specimen Plasma specimen Performing Organization Address [facility] Phone Number [facility] [place] [address] PATHOLOGY AND [facility] MEDICINE [address] * EMG General Request (04/28/2018 1:53 PM CDT) Impressions Performed At Mr. Plascencia is being evaluated for phrenic nerve compromise. 1) Phrenic motor latency is borderline normal on the right with small amplitude; left phrenic motor latency is delayed with small amplitude. The study suggests bilateral phrenic nerve compromise, mild on the right and more pronounced on the left. Дмитрий Odonnell M.D. Narrative Performed At NERVE CONDUCTION AND ELECTROMYOGRAPHY REPORT Neurological [place], [facility] Medicine [facility]-11th Floor; [place], [place] [address]; Name: Joel Plascencia(FMICU [id number]) Date of Procedure: April 28, 2018 Location: Sex: Male Date of :31 Referring Physician: Moncho Hernandez M.D.FAX: Patient is 5 6 ; 195 lbs.; RA 35.0 C; LA 33.8 C Nerve Conduction(Latencies in msec, Amplitudes uV, Distance cm, Velocity M/Sec) Right Motor Nerves Dist. Lat. Prox lat. D. amp. P. Amp.Dist. Velocity Right Phrenic6.30.3 Left Motor Nerves Dist. Lat. Prox lat. D. amp. P. Amp.Dist. Velocity Left Phrenic8.70.2 * [place] Lung Ventilation Perfusion (04/26/2018 5:25 PM CDT) Specimen Narrative Performed At PROCEDURE:[place] LUNG VENTILATION PERFUSION [facility] INDICATION:PE suspected. COMPARISON:Chest x-ray 04/25/2018. TECHNIQUE:Planar ventilation images were acquired after the inhalation of 15 mCi of Xe-133 gas. Planar perfusion images were acquired after the IV administration of 5 mCi of Tc-99m MAA. FINDINGS:Ventilation images demonstrate decreased ventilation to the lung periphery. Washout images demonstrate patchy gas trapping in both lungs.Perfusion images demonstrate decreased perfusion to the lung periphery, matching the ventilation images.Defects are small in size.No suspicious mismatched defects. IMPRESSION: 1.Very low probability for PE. 2.Patchy obstructive airspace disease. [facility]-[id number] Procedure Note Interface, Radiology Results Incoming - 04/26/2018 5:40 PM CDT PROCEDURE: [place] LUNG VENTILATION PERFUSION INDICATION: PE suspected. COMPARISON: Chest x-ray 04/25/2018. TECHNIQUE: Planar ventilation images were acquired after the inhalation of 15 mCi of Xe-133 gas. Planar perfusion images were acquired after the IV administration of 5 mCi of Tc-99m MAA. FINDINGS: Ventilation images demonstrate decreased ventilation to the lung periphery. Washout images demonstrate patchy gas trapping in both lungs. Perfusion images demonstrate decreased perfusion to the lung periphery, matching the ventilation images. Defects are small in size. No suspicious mismatched defects. IMPRESSION: 1. Very low probability for PE. 2. Patchy obstructive airspace disease. [facility]-[id number] Performing Organization Address City/State/Zipcode Phone Number [facility] [address] [place] [address] * Echocardiogram complete w contrast and 3D if needed (04/25/2018 10:11 AM CDT) Specimen Narrative Performed At [facility] Echocardiography Report [id number] [place] [address] Pat.Name:JOEL PLASCENCIA Pat.ID:[id number] St.Date: 04/25/2018 Refer.MD:MONCHO HERNANDEZ MD Exam Time: 8:33:00 AMStudy Type:Routine Echo Height:61.81in Weight:216lb BSA: 1.97 m2 DOBAge:1935,82Y Sex: MALEBP:134/63 Sonogrphr: Elizabeth Liu RDCS, RVSPat. Stat.:Inpatient [address] Status:Final Echo Event ID:[id number] Order ID:[id number] Reason for Study:R/O LT PERSISTENT SVC History / Clinical:COPD, Hypertension Procedures:2D Echo, Colorflow Doppler, Intravenous Optison Contrast, Intravenous Saline Contrast Race:C SUMMARY: LV size is normal. Estimated EF is 65-69% No evidenced of persistent L-SVC or intracardiac shunt. Diastolic dysfunction Grade II (Moderate): Impaired relaxation with elevated LV filling pressures. Estimated PA systolic pressure is 32 mmHg, assuming a mean RAP of 5 mmHg. FINDINGS: LV: LV size is normal. LV EF is normal. Overall wall motion is normal.Estimated EF is 65-69% RV: RV size is normal. RV systolic function is normal. LA: LA volume is mildly enlarged. RA: RA size is normal. AO: Aortic root diameter is normal. ELIAS: No pericardial effusion. There is an anterior space consistentwith a prominent epicardial fat pad. Cntrst: No intracardiac shunt detected. AV: Mild thickening and calcification of AV leaflets. MV: Mild mitral annular calcification. Thickened and/or calcifiedchordae. PV: No structural PV abnormalities noted. TV: No structural TV abnormalities noted. Mild tricuspid regurgitation Malloy: Diastolic dysfunction Grade II (Moderate): Impaired relaxationwith elevated LV filling pressures. Other:Estimated PA systolic pressure is 32 mmHg, assuming a mean RAPof 5 mmHg. MEASUREMENTS: 2D Parasternal [place] LVOT 1.9 cmLV%fs 57.6 % LA Ds3.4 cmIVSd 1.2 cm Ao An1.8 cmLVPWd0.9 cm Ao Rtd 3.1 cmIndex1.6 cm/m LV Vtim956.9 g(122-174) LVIDd4.6 cmIndex2.3 cm/m LVM Index 86.2 g/m2 LVIDs1.9 cmRWT0.4 LA Sng Plane LA Area 23.4 cm2(8.8-23.4) LA Vol69.8 ml Index35.5 ml/m LA LngAx 6.6 cm DOPPLER LVOT For Flow LVOT Area2.8 cm2 LVOT SV 79.3 ml FHUZnuQwr471.7 cm/sHR58 bpm LVOTpkPG 5.9 mmHgLVOT CO4.6 l/min LVOTmnPG 3.2 mmHgLVOT CI2.3 l/m/m2 LVOT TVI28 cm Signed 04/25/2018 06:47 PM Jerrod Solomon M.D. Procedure Note Interface, Radiology Results In - 04/25/2018 6:47 PM CDT Echocardiography Report [id number]Name: JOEL PLASCENCIA Pat.ID: [id number] .Date: 04/25/2018 Refer.MD: MONCHO HERNANDEZ MD Exam Time: 8:33:00 AM Study Type:Routine Echo Height: 61.81in Weight: 216lb BSA: 1.97 m2 Age: 6 1935,82Y Sex: MALE BP: 134/63 Sonogrphr: Elizabeth Liu RDCS, RVSPat. Stat.:Inpatient Room: [place] [address] Study Status:Final Echo Event ID:[id number] Order ID: [id number] Reason for Study:R/O LT PERSISTENT SVC History / Clinical:COPD, Hypertension Procedures:2D Echo, Colorflow Doppler, Intravenous Optison Contrast, Intravenous Saline Contrast Race: C SUMMARY: LV size is normal. Estimated EF is 65-69% No evidenced of persistent L-SVC or intracardiac shunt. Diastolic dysfunction Grade II (Moderate): Impaired relaxation with elevated LV filling pressures. Estimated PA systolic pressure is 32 mmHg, assuming a mean RAP of 5 mmHg. FINDINGS: LV: LV size is normal. LV EF is normal. Overall wall motion is normal. Estimated EF is 65-69% RV: RV size is normal. RV systolic function is normal. LA: LA volume is mildly enlarged. RA: RA size is normal. AO: Aortic root diameter is normal. ELIAS: No pericardial effusion. There is an anterior space consistent with a prominent epicardial fat pad. Cntrst: No intracardiac shunt detected. AV: Mild thickening and calcification of AV leaflets. MV: Mild mitral annular calcification. Thickened and/or calcified chordae. PV: No structural PV abnormalities noted. TV: No structural TV abnormalities noted. Mild tricuspid regurgitation Malloy: Diastolic dysfunction Grade II (Moderate): Impaired relaxation with elevated LV filling pressures. Other: Estimated PA systolic pressure is 32 mmHg, assuming a mean RAP of 5 mmHg. MEASUREMENTS: 2D Parasternal [place] LVOT 1.9 cm LV%fs 57.6 % LA Ds 3.4 cm IVSd 1.2 cm Ao An 1.8 cm LVPWd 0.9 cm Ao Rtd 3.1 cm Index 1.6 cm/m LV Mass 169.9 g (122-174) LVIDd 4.6 cm Index 2.3 cm/m LVM Index 86.2 g/m2 LVIDs 1.9 cm RWT 0.4 LA Sng Plane LA Area 23.4 cm2 (8.8-23.4) LA Vol 69.8 ml Index 35.5 ml/m LA LngAx 6.6 cm DOPPLER LVOT For Flow LVOT Area 2.8 cm2 LVOT SV 79.3 ml LVOTpkVel 121.7 cm/s HR 58 bpm LVOTpkPG 5.9 mmHg LVOT CO 4.6 l/min LVOTmnPG 3.2 mmHg LVOT CI 2.3 l/m/m2 LVOT TVI 28 cm Signed 04/25/2018 06:47 PM Jerrod Solomon M.D. Performing Organization Address City/State/[facility] Phone Number [facility] [address] [place] [address] * CT Lumbar Spine Wo Contrast (04/24/2018 3:32 PM CDT) Specimen Narrative Performed At EXAMINATION:CT LUMBAR SPINE WO CONTRAST [facility] CLINICAL HISTORY:[id number] conservative txpersistent sx COMPARISON:None. TECHNIQUE: Noncontrast lumbar spinal CT with multiplanar reconstruction performed using radiation dose reduction techniques.Technical factors are evaluated and adjusted to ensure appropriate moderation of exposure.Automated dose management technology is applied to adjust radiation exposure while achieving a diagnostic quality image. FINDINGS: There are 5 lumbar type vertebrae, and the last functional disc is presumed to be L5-S1. There is mild straightening of normal lumbar lordosis without malalignment. There is no evidence of acute fracture. T12-L1 disc is moderate-severely narrowed. Remaining lumbar intervertebral discs are mild-moderately narrowed. There are multiple small chronic-appearing Schmorl's nodes. L5-S1: Combination of disc bulge and mild-moderate left and moderate facet arthropathy results in moderate-severe left and mild-moderate right neural foraminal stenoses encroaching on exiting left more than right L5 nerve roots. Probable bilateral subarticular lateral recess stenoses. Superimposed epidural lipomatosis results in small thecal sac. L4-5: Combination of congenital narrowing of spinal canal, disc bulge, mild bilateral facet arthropathy, ligamentum flavum hypertrophy, and dorsal epidural lipomatosis results in probable moderate-severe spinal canal stenosis. Mild left more than right neural foraminal stenoses. L3-4: Combination of congenital narrowing of spinal canal, disc bulge, mild bilateral facet arthropathy, ligamentum flavum hypertrophy, and dorsal epidural lipomatosis results in probable severe spinal canal stenosis. Mild left more than right neural foraminal stenoses. L2-3: Combination of congenital narrowing of spinal canal, disc bulge, mild bilateral facet arthropathy, ligamentum flavum hypertrophy, and dorsal epidural lipomatosis results in probable moderate-severe spinal canal stenosis. Mild bilateral neural foraminal stenoses. L1-2: Combination of mild disc bulge and mild bilateral facet arthropathy results in at most mild bilateral neural foraminal stenoses. No significant spinal canal stenosis suspected. T12-L1: There is no significant neural foraminal stenosis. No significant spinal canal stenosis is suspected. Mild-moderate diffuse fatty atrophy of bilateral erector spinae muscles, likely from deconditioning. Mild arthrosis of bilateral sacroiliac joints. Focal sclerotic lesion in the left posterior ilium adjacent to the left sacroiliac joint appears non-aggressive, possibly benign enostosis. IMPRESSION: 1. 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 Recommend lumbar spinal MRI for confirmation. 2. At L5-S1, moderate-severe left and mild-moderate right neural foraminal stenoses encroach on exiting left more than right L5 nerve roots. [facility]-[id number] Procedure Note [facility], Radiology Results Incoming - 04/24/2018 3:56 PM CDT EXAMINATION: CT LUMBAR SPINE WO CONTRAST CLINICAL HISTORY: Radiculopathy 6wks conservative tx persistent sx COMPARISON: None. TECHNIQUE: Noncontrast lumbar spinal CT with multiplanar reconstruction performed using radiation dose reduction techniques. Technical factors are evaluated and adjusted to ensure appropriate moderation of exposure. Automated dose management technology is applied to adjust radiation exposure while achieving a diagnostic quality image. FINDINGS: There are 5 lumbar type vertebrae, and the last functional disc is presumed to be L5-S1. There is mild straightening of normal lumbar lordosis without malalignment. There is no evidence of acute fracture. T12-L1 disc is moderate- severely narrowed. Remaining lumbar intervertebral discs are mild-moderately narrowed. There are multiple small chronic-appearing Schmorl's nodes. L5-S1: Combination of disc bulge and mild-moderate left and moderate facet arthropathy results in moderate-severe left and mild-moderate right neural foraminal stenoses encroaching on exiting left more than right L5 nerve roots. Probable bilateral subarticular lateral recess stenoses. Superimposed epidural lipomatosis results in small thecal sac. L4-5: Combination of congenital narrowing of spinal canal, disc bulge, mild bilateral facet arthropathy, ligamentum flavum hypertrophy, and dorsal epidural lipomatosis results in probable moderate-severe spinal canal stenosis. Mild left more than right neural foraminal stenoses. L3-4: Combination of congenital narrowing of spinal canal, disc bulge, mild bilateral facet arthropathy, ligamentum flavum hypertrophy, and dorsal epidural lipomatosis results in probable severe spinal canal stenosis. Mild left more than right neural foraminal stenoses. L2-3: Combination of congenital narrowing of spinal canal, disc bulge, mild bilateral facet arthropathy, ligamentum flavum hypertrophy, and dorsal epidural lipomatosis results in probable moderate-severe spinal canal stenosis. Mild bilateral neural foraminal stenoses. L1-2: Combination of mild disc bulge and mild bilateral facet arthropathy results in at most mild bilateral neural foraminal stenoses. No significant spinal canal stenosis suspected. T12-L1: There is no significant neural foraminal stenosis. No significant spinal canal stenosis is suspected. Mild-moderate diffuse fatty atrophy of bilateral erector spinae muscles, likely from deconditioning. Mild arthrosis of bilateral sacroiliac joints. Focal sclerotic lesion in the left posterior ilium adjacent to the left sacroiliac joint appears non-aggressive, possibly benign enostosis. IMPRESSION: 1. 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 Recommend lumbar spinal MRI for confirmation. 2. At L5-S1, moderate-severe left and mild-moderate right neural foraminal stenoses encroach on exiting left more than right L5 nerve roots. [facility]-[id number] Performing Organization Address City/State/Zipcode Phone Number [facility] [address] [place] [address] * CT Head Wo Contrast (04/24/2018 3:31 PM CDT) Specimen Narrative Performed At EXAMINATION:CT HEAD WO CONTRAST [facility] CLINICAL HISTORY:Strokefollow up COMPARISON:Head CT on 04/19/2018. TECHNIQUE: Noncontrast head CT performed using radiation dose reduction techniques.Technical factors are evaluated and adjusted to ensure appropriate moderation of exposure.Automated dose management technology is applied to adjust radiation exposure while achieving a diagnostic quality image. FINDINGS: There is questionable diffuse mildly decreased density of cortical and deep pierre matter relative to white matter. Again noted is chronic lacunar infarction versus prominent Virchow-Gui perivascular space involving right basal ganglia. No focal wedge-shaped acute territorial infarction. No intracranial hemorrhage, mass effect, or midline shift. Ventricles, sulci, and cisterns are stable and mild-moderately prominent from cerebral volume loss. There is no extra-axial fluid collection. Visualized paranasal sinuses and mastoid air cells are clear. Bones, orbits, and soft tissues are unremarkable. IMPRESSION: Questionable diffuse mildly decreased density of cortical and deep pierre matter relative to white matter, possibly from differences in technique but cannot exclude changes related to hypoxic ischemic encephalopathy. Recommend brain MRI for further evaluation. [facility]-[id number] Procedure Note Interface, Radiology Results Incoming - 04/24/2018 3:45 PM CDT EXAMINATION: CT HEAD WO CONTRAST CLINICAL HISTORY: Stroke follow up COMPARISON: Head CT on 04/19/2018. TECHNIQUE: Noncontrast head CT performed using radiation dose reduction techniques. Technical factors are evaluated and adjusted to ensure appropriate moderation of exposure. Automated dose management technology is applied to adjust radiation exposure while achieving a diagnostic quality image. FINDINGS: There is questionable diffuse mildly decreased density of cortical and deep pierre matter relative to white matter. Again noted is chronic lacunar infarction versus prominent Virchow-Gui perivascular space involving right basal ganglia. No focal wedge-shaped acute territorial infarction. No intracranial hemorrhage, mass effect, or midline shift. Ventricles, sulci, and cisterns are stable and mild-moderately prominent from cerebral volume loss. There is no extra-axial fluid collection. Visualized paranasal sinuses and mastoid air cells are clear. Bones, orbits, and soft tissues are unremarkable. IMPRESSION: Questionable diffuse mildly decreased density of cortical and deep pierre matter relative to white matter, possibly from differences in technique but cannot exclude changes related to hypoxic ischemic encephalopathy. Recommend brain MRI for further evaluation. [facility]-[id number] Performing Organization Address City/[facility]/Zipcode Phone Number [facility] [address] [place] [address] * Prostate specific antigen (04/24/2018 3:40 AM CDT) PSA 0.5 0.0 - 4.0 ng/mL AVENAL Comment: [facility] The MARLON 8000 PSA immunoassay HOSPITAL was used. Results obtained with different assay methods or kits should not be used interchangeably and may be different. Specimen Plasma specimen Performing Organization Address [facility] Phone Number [facility] DEPARTMENT OF [address] [place] [address] PATHOLOGY AND GENOMIC MEDICINE AVENAL [facility] [address] [place] [address] HOSPITAL * Us carotid duplex (04/22/2018 2:43 PM LABORATORY ENGINEER) Specimen Narrative Performed At [facility] Vascular Ultrasound Laboratory Carotid Artery Duplex Report [id number] [place] [address] For quality eng purposes, the categorization of the degree of the stenosis of this exam is based on criteria described in the IAC carotid stenosis grading white paper( www.intersocietal.org/Vascular) and Liang Munoz., Barron Garcia., et al. Carotid artery stenosis: pierre-scale and Doppler US diagnosis--Society of Radiologists in Ultrasound Consensus Conference. Radiology. 2003 Nov; 229(2):340-6. Pat.Name:JOEL PLASCENCIA Pat.ID:[id number] .Date: 04/22/2018 Refer.MD:MONCHO HERNANDEZ MD Exam Time: 2:03:00 PMStudy Type:Carotid DOBAge:1935,82Y Sex: MALE Sonogrphr: ERIKA Valverde, RVTPat. Stat.:Inpatient Room:[facility] 020-06TapeVol: DIOGENES, CPT - 4: 99881 Echo Event ID:[id number] Order ID:[id number] Reason for Study:New or worsening hemisphereic neurological symptoms. Patient has recent history of CVA/TIA with left sided weakness. History of hyperlipidemia, diabetes, acute hypoxemic respiratory failure. Procedures:Colorflow, Grayscale/2D, Pulsed wave Doppler Race:C SUMMARY: PHYSICAL ASSESSMENT BloodPulsesCarotid Pressure Carotid TemporalBruit Right ___ ++0 Left 127/57++0 CAROTID ARTERY SCAN RIGHT:There is hard plaque seen in the distal common carotid artery. There is hard plaque seen in the ostium of the external carotid artery. Hard plaque seen in the proximal/mid aspect of the internal carotid artery. Color and doppler signals are mildly disturbed. LEFT: There is hard plaque seen at the mid and distal common carotid artery. Doppler signals are disturbed throughout the visualized portion of the common carotid artery. The external carotid artery is clear. There is hard plaque noted at the bulb and the ostium of the internal carotid artery. The distal internal carotid artery is difficult to evaluate due to a high bifurcation and patient's positioning. PRELIMINARY FINDINGS 1. Non-stenotic plaque noted in bilateral internal carotid arteries. 2. <50% stenosis of bilateral internal carotid arteries. 3. Difficulty visualizing the left distal internal carotid artery due to a high bifurcation and patient's positioning. PHYSICIAN INTERPRETATION Bilateral carotid duplex examination demonstrated atherosclerotic plaques in the bulbs. Less than 50% stenosis in the bulb and internal carotid artery, bilaterally. Both vertebral arteries are antegrade. Carotid Findings:RightLeft Roselia.Flw AntegradeAntegrade Subclavian TriphasicTriphasic MEASUREMENTS: DOPPLER Right CCA Dist CCA Dist PSV66 cm/sCCA Dist EDV3.39 cm/s Right CCA Mid CCA Mid PSV 96 cm/sCCA Mid EDV 8.61 cm/s Right CCA Prox CCA Prox PSV76.8 cm/sCCA Prox EDV 0 cm/s Right ECA Prox ECA Prox PSV 135 cm/sECA Prox EDV 0 cm/s Right ICA Dist ICA Dist PSV66.8 cm/Carey Dist EDV13.6 cm/s Right ICA Mid ICA Mid PSV 78.7 cm/Carey Mid EDV 15.6 cm/s Right ICA Prox ICA Prox PSV76.1 cm/Carey Prox EDV13 cm/s Right Vertebral Vertebral PSV 68.8 cm/sVertebral EDV 17.5 cm/s Right Subclavian Subclavian PSV 102 cm/sSubclavian EDV7.69 cm/s Left CCA Dist CCA Dist PSV80.6 cm/sCCA Dist EDV13.6 cm/s Left CCA Mid CCA Mid PSV 84.6 cm/sCCA Mid EDV0 cm/s Left CCA Prox CCA Prox PSV 100 cm/sCCA Prox EDV19.5 cm/s Left ECA Prox ECA Prox PSV98.3 cm/sECA Prox EDV7.68 cm/s Left ICA Mid ICA Mid GNH539 cm/Carey Mid EDV 25.4 cm/s Left ICA Prox ICA Prox PSV72.6 cm/Carey Prox EDV13.6 cm/s Left Vertebral Vertebral PSV 47.8 cm/sVertebral EDV 7.64 cm/s Left Subclavian Subclavian PSV 164 cm/sSubclavian EDV 0 cm/s Right ICA/CCA Ratio ICA/CCA PSV0.793 Left ICA/CCA Ratio ICA/CCA PSV0.858 Signed 04/23/2018 08:28 AM Saurabh Gomez MD, RPVI Procedure Note Interface, Radiology Results In - 04/23/2018 8:29 AM [facility] Vascular Ultrasound Laboratory Carotid Artery Duplex Report [id number] [address] For quality eng purposes, the categorization of the degree of the stenosis of this exam is based on criteria described in the IAC carotid stenosis grading white paper( www.intersocietal.org/Vascular) and Liang Munoz., Barron Garcia., et al. Carotid artery stenosis: pierre-scale and Doppler US diagnosis--Society of Radiologists in Ultrasound Consensus Conference. Radiology. 2003 Nov; 229(2):340-6. Pat.Name: JOEL PLASCENCIA Pat.ID: [id number] .Date: 04/22/2018 Refer.MD: MONCHO HERNANDEZ MD Exam Time: 2:03:00 PM Study Type:Carotid Age: 6 1935,82Y Sex: MALE Sonogrphr: ERIKA Valverde, RVT Pat. Stat.:Inpatient Room: [place] [address] Tape Vol: DIOGENES, CPT - 4: 20354 Echo Event ID:[id number] Order ID: [id number] Reason for Study:New or worsening hemisphereic neurological symptoms. Patient has recent history of CVA/TIA with left sided weakness. History of hyperlipidemia, diabetes, acute hypoxemic respiratory failure. Procedures:Colorflow, Grayscale/2D, Pulsed wave Doppler Race: C SUMMARY: PHYSICAL ASSESSMENT Blood Pulses Carotid Pressure Carotid Temporal Bruit Right ___ + + 0 Left 127/57 + + 0 CAROTID ARTERY SCAN RIGHT: There is hard plaque seen in the distal common carotid artery. There is hard plaque seen in the ostium of the external carotid artery. Hard plaque seen in the proximal/mid aspect of the internal carotid artery. Color and doppler signals are mildly disturbed. LEFT: There is hard plaque seen at the mid and distal common carotid artery. Doppler signals are disturbed throughout the visualized portion of the common carotid artery. The external carotid artery is clear. There is hard plaque noted at the bulb and the ostium of the internal carotid artery. The distal internal carotid artery is difficult to evaluate due to a high bifurcation and patient's positioning. PRELIMINARY FINDINGS 1. Non-stenotic plaque noted in bilateral internal carotid arteries. 2. <50% stenosis of bilateral internal carotid arteries. 3. Difficulty visualizing the left distal internal carotid artery due to a high bifurcation and patient's positioning. PHYSICIAN INTERPRETATION Bilateral carotid duplex examination demonstrated atherosclerotic plaques in the bulbs. Less than 50% stenosis in the bulb and internal carotid artery, bilaterally. Both vertebral arteries are antegrade. Carotid Findings: Right Left Verteb.Flw Antegrade Antegrade Subclavian Triphasic Triphasic MEASUREMENTS: DOPPLER Right CCA Dist CCA Dist PSV 66 cm/s CCA Dist EDV 3.39 cm/s Right CCA Mid CCA Mid PSV 96 cm/s CCA Mid EDV 8.61 cm/s Right CCA Prox CCA Prox PSV 76.8 cm/s CCA Prox EDV 0 cm/s Right ECA Prox ECA Prox PSV 135 cm/s ECA Prox EDV 0 cm/s Right ICA Dist ICA Dist PSV 66.8 cm/s ICA Dist EDV 13.6 cm/s Right ICA Mid ICA Mid PSV 78.7 cm/s ICA Mid EDV 15.6 cm/s Right ICA Prox ICA Prox PSV 76.1 cm/s ICA Prox EDV 13 cm/s Right Vertebral Vertebral PSV 68.8 cm/s Vertebral EDV 17.5 cm/s Right Subclavian Subclavian PSV 102 cm/s Subclavian EDV 7.69 cm/s Left CCA Dist CCA Dist PSV 80.6 cm/s CCA Dist EDV 13.6 cm/s Left CCA Mid CCA Mid PSV 84.6 cm/s CCA Mid EDV 0 cm/s Left CCA Prox CCA Prox PSV 100 cm/s CCA Prox EDV 19.5 cm/s Left ECA Prox ECA Prox PSV 98.3 cm/s ECA Prox EDV 7.68 cm/s Left ICA Mid ICA Mid PSV 102 cm/s ICA Mid EDV 25.4 cm/s Left ICA Prox ICA Prox PSV 72.6 cm/s ICA Prox EDV 13.6 cm/s Left Vertebral Vertebral PSV 47.8 cm/s Vertebral EDV 7.64 cm/s Left Subclavian Subclavian PSV 164 cm/s Subclavian EDV 0 cm/s Right ICA/CCA Ratio ICA/CCA PSV 0.793 Left ICA/CCA Ratio ICA/CCA PSV 0.858 Signed 04/23/2018 08:28 AM Saurabh Gomez MD, RPVI Performing Organization Address City/[facility]/Zipcode Phone Number [facility] [address] [place] [address] * Arterial blood gas (04/22/2018 10:36 AM LABORATORY ENGINEER) Only the most recent of 3 results within the time period is included. pH, arterial 7.46 (H) 7.35 - 7.45 [facility] pCO2, arterial 35 35 - 45 mmHg [facility] pO2, arterial 90 80 - 90 mmHg [facility] Bicarbonate, 24.7 21.0 - 28.0 mmol/L [facility] Base excess, 1 -2 - 2 mEq/L [facility] O2 saturation, 98 95 - 100 % [facility] Specimen Blood Performing Organization Address [facility] Phone Number [facility] [place] [address] PATHOLOGY AND [facility] MEDICINE [address] * Carboxyhemoglobin (04/22/2018 10:13 AM LABORATORY ENGINEER) Carboxyhemoglob 3.2 (H) 0.0 - 2.0 % AVENAL in Comment: [facility] Reference Ranges: HOSPITAL Carboxyhemoglobin Non smoker: 0.0 - 2.0% Smoker: 2.1 - 5.0% Heavy smoker: 5.1 - 9% Results double checked. Specimen Blood Performing Organization Address [facility] Phone Number [facility] [place] [address] PATHOLOGY AND [facility] MEDICINE [address] * Pv transcranial Doppler intracranial arteries (04/21/2018 6:20 PM LABORATORY ENGINEER) Specimen Narrative Performed At [facility] Vascular Ultrasound Laboratory Transcranial Doppler Report (TCD) [address] [place] [address] Pat.Name:JOEL PLASCENCIA Pat.ID:[id number] .Date: 04/21/2018 Refer.MD:MONCHO HERNANDEZ MD Exam Time: 5:44:00 PMStudy Type:TCD DOBAge:1935,82Y Sex: MALE Sonogrphr: Neel Jones RDMS, RVTPat. Stat.:Inpatient Room:[facility] 6TapeVol: ST, CPT - 4: 76371 Echo Event ID:[id number] Order ID:[id number] Reason for Study:Stroke. History of HUEY superimposed on CKD, hyperlipidemia, TIA, diabetes 2, acute hypoxemic respiratory failure, left sided weakness and numbness which resolved. Procedures:Colorflow, Pulsed wave Doppler Race:C SUMMARY: RIGHT LEFT Antegrade RetrogradeAntegrade Retrograde Ophthalmic Artery+ + RIGHT LEFT Normal Abnormal Not SeenNormal Abnormal Not Seen Siphon ++ MCA ++ SIMONE ++ DAIRY BACTERIOLOGIST ++ Basilar ++ Vertebral ++ ADDITIONAL FINDINGS: 1.No evidence of focally elevated velocities or bruit that would suggest arterial stenosis within insonated arteries. 2.Antegrade flow noted throughout. 3.Technically difficult study due to small viable temporal windows, bilaterally. 4.Elevated pulsatility indices noted throughout. PHYSICIAN INTERPRETATION: All velocities within normal limits. No stenosis or obstruction detected. Both Oa and VA are antegrade. Increased PI values. Signed 04/22/2018 08:16 AM Saurabh Gomez MD, RPVI Procedure Note Interface, Radiology Results In - 04/22/2018 8:16 AM [facility] Vascular Ultrasound Laboratory Transcranial Doppler Report (TCD) [address] [place] [address] Pat.Name: JOEL PLASCENCIA Pat.ID: [id number] .Date: 04/21/2018 Refer.MD: MONCHO HERNANDEZ MD Exam Time: 5:44:00 PM Study Type:TCD Age: 6 1935,82Y Sex: MALE Sonogrphr: Neel Jones RDMS, RVT Pat. Stat.:Inpatient Room: [facility] 6 Tape Vol: ST, CPT - 4: 83609 Echo Event ID:[id number] Order ID: [id number] Reason for Study:Stroke. History of HUEY superimposed on CKD, hyperlipidemia, TIA, diabetes 2, acute hypoxemic respiratory failure, left sided weakness and numbness which resolved. Procedures:Colorflow, Pulsed wave Doppler Race: C SUMMARY: RIGHT LEFT Antegrade Retrograde Antegrade Retrograde Ophthalmic Artery + + RIGHT LEFT Normal Abnormal Not Seen Normal Abnormal Not Seen Siphon + + MCA + + SIMONE + + DAIRY BACTERIOLOGIST + + Basilar + + Vertebral + + ADDITIONAL FINDINGS: 1. No evidence of focally elevated velocities or bruit that would suggest arterial stenosis within insonated arteries. 2. Antegrade flow noted throughout. 3. Technically difficult study due to small viable temporal windows, bilaterally. 4. Elevated pulsatility indices noted throughout. PHYSICIAN INTERPRETATION: All velocities within normal limits. No stenosis or obstruction detected. Both Oa and VA are antegrade. Increased PI values. Signed 04/22/2018 08:16 AM Saurabh Gomez MD, RPVI Performing Organization Address [facility] Phone Number [facility] [address] [place] [address] * Homocystine, plasma (04/21/2018 3:15 AM LABORATORY ENGINEER) [facility] Homocysteine 20.6 (H) 0.0 - 15.0 umol/L AVENAL Comment: [facility] The risk for coronary vascular HOSPITAL disease increases progressively with homocysteine concentration.A 3.4 times greater risk is associated with a homocysteine concentration of greater than 15.8 umol/L as compared to a concentration below 14.1 umol/L. Specimen Plasma specimen Performing Organization Address [facility] Phone Number [facility] DEPARTMENT [address] [place] [address] PATHOLOGY AND GENOMIC MEDICINE AVENAL [facility] [address] [place] [address] * Vitamin D 25 hydroxy level (04/21/2018 3:15 AM LABORATORY ENGINEER) [facility] Vitamin D, 42.4 30.0 - 150.0 ng/mL AVENAL 25-hydroxy Comment: [facility] This assay reports the sum of HOSPITAL 25-hydroxy vitamin D3 and 25-hydroxy vitamin D2. Reference range: 0-17 years: Deficiency: less than 20ng/mL Optimum level: greater than or equal to 20 ng/mL. 18 years and older: Deficiency: less than 20ng/mL Insufficiency: 20-29 ng/mL Optimum Level: 30-80 ng/mL The assay reportable range is 3.4155.9 ng/mL. Levels higher than 150 ng/mL may be associated with toxicity. If toxicity is clinically suspected and the reported result is >155.9 ng/mL,contact lab for alternative methods to obtain a definitivelevel. If separate quantitation of 25-hydroxy vitamin D3 and 25-hydroxy vitamin D2 is needed, please contact lab for alternative methods. Specimen Blood Performing Organization Address City/[facility]/Zipcode Phone Number [facility] [place] [address] PATHOLOGY [address] * Anti-neutrophilic cytoplasmic Abs panel (04/21/2018 3:15 AM LABORATORY ENGINEER) [facility] ANCA screen Negative Negative [facility] Specimen Blood Performing Organization Address City/[facility] Phone Number [facility] [place] [address] PATHOLOGY AND [facility] MEDICINE [address] * Sedimentation rate (04/21/2018 3:15 AM LABORATORY ENGINEER) [facility] Sedimentation 34 (H) 0 - 10 mm/hr [facility] Specimen Blood Performing Organization Address City/[facility]/Zipcode Phone Number [facility] [place] [address] PATHOLOGY [address] * CHINTAN (04/21/2018 3:15 AM LABORATORY ENGINEER) Pathologist [facility] CHINTAN screen Negative Negative [facility] Specimen Blood Performing Organization Address City/[facility]/Zipcode Phone Number [facility] [place] [address] PATHOLOGY AND [facility] MEDICINE [address] * Lipid panel (04/21/2018 3:15 AM LABORATORY ENGINEER) [facility] Cholesterol 186 <200 mg/dL [facility] Triglycerides 220 (H) <150 mg/dL [facility] HDL cholesterol 48 >40 mg/dL [facility] LDL cholesterol 107 (H)Comment: Result <100 mg/dL AVENAL obtained by direct LDL [facility] measurement [facility] Lipid panel SeeBelow AVENAL interpretation Comment: [facility] Total Cholesterol HOSPITAL (mg/dL) <200 Desirable 200-239Borderline -high >=240High Triglycerides (mg/dL) <150 Normal 150-199Borderline -high 200-499High >=500Very high HDL Cholesterol (mg/dL) <40Low (male) <40Low (female) LDL Cholesterol (mg/dL) <100 Optimal 100-129Near or above optimal 130-159Borderline -high 160-189High >=190Very high Risk Catergories that modify LDL goals. Risk Catergories LDL goal (mg/dL) CHD and CHD risk equivalent<100 (10-year risk >20%) Multiple (2+) risk factors <130 (10-year risk=<20%) 0-1 risk factors <160 (<10-year risk) Defining levels of lipids in metabolic syndrome Triglycerides >=150 mg/dL HDL Cholesterol Men <40 mg/dL Women <40 mg/dL Non-HDL cholesterol is a second target for therapy in persons with high triglycerides (>=200 mg/dL) Specimen Plasma specimen Performing Organization Address City/State/Zipcode Phone Number [facility] DEPARTMENT OF [address] [place] [address] PATHOLOGY AND GENOMIC MEDICINE AVENAL [facility] [address] [place] [address] * Echocardiogram complete w contrast and 3D if needed (04/20/2018 9:35 AM LABORATORY ENGINEER) Specimen Narrative Performed At [facility] Echocardiography Report [address] [place] [address] Pat.Name:JOEL PLASCENCIA Pat.ID:[id number] .Date: 04/20/2018 Refer.MD:MONCHO HERNANDEZ MD Exam Time: 8:59:00 AMStudy Type:Routine Echo Height:61.81in Weight:215.82lb BSA: 1.97 m2 DOBAge:1935,82Y Sex: MALEBP:158/56 HR:85 bpmSonogrphr: FREDY Tanner Pat. Stat.:Inpatient Room:[facility] Study Status:Final Echo Event ID:[id number] Order ID:[id number] Reason for Study:Hypoxia without radiographic explanation. Eval for shunt physiology as well. History / Clinical:COPD, Hypertension Procedures:2D Echo, Colorflow Doppler, Intravenous Saline Contrast SUMMARY: LV size is normal. LV EF is normal. RV size is normal. RV systolic function is normal. No intracardiac shunt detected. 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 FINDINGS: LV: LV size is normal. LV EF is normal. Overall wall motion is normal.Estimated EF is 65-69% RV: RV size is normal. RV systolic function is normal. LA: LA volume is mildly enlarged. RA: RA size is normal. AO: Aortic root diameter is normal. ELIAS: Trace posterolateral pericardial effusion. Cntrst: No intracardiac shunt detected. Cngtl:Dilated coronary sinus suggests persistent left superior venacava. AV: No structural AV abnormalities noted. MV: No structural MV abnormalities noted. PV: No structural PV abnormalities noted. TV: No structural TV abnormalities noted. A trace of tricuspid regurgitation Malloy: Diastolic dysfunction Grade I (Mild): Impaired relaxation withnormal LV filling pressures. Other:Estimated PA systolic pressure is 37 mmHg, assuming a mean RAPof 5 mmHg. MEASUREMENTS: 2D Parasternal Long [place] LA Ds4.8 cmLVPWd1.2 cm LVOT 1.8 cmAo An2.1 cm LVIDd4.6 cmIndex2.3 cm/m Ao Rtd 3.4 cm Index1.7 cm/m LVIDs2.6 cm LV Aisd130.7 g(122-174) LV%fs 43.4 % LVM Index 94.2 g/m2 IVSd 1 cmRWT0.5 LA Sng Plane LA Area 23.6 cm2(8.8-23.4) LA Vol75.5 ml Index38.3 ml/m LA LngAx 6.2 cm RA Sng Plane RA Area 16.3 cm2(8.3-19.5) RA Vol37.3 ml Index18.9 ml/m RA LngAx 5.8 cm Signed 04/20/2018 07:14 PM Asim Atkinson M.D. Procedure Note Interface, Radiology Results In - 04/20/2018 7:14 PM LABORATORY ENGINEER Echocardiography Report [address] [place] [address] Pat.Name: JOEL PLASCENCIA Pat.ID: [id number] .Date: 04/20/2018 Refer.MD: MONCHO HERNANDEZ MD Exam Time: 8:59:00 AM Study Type:Routine Echo Height: 61.81in Weight: 215.82lb BSA: 1.97 m2 Age: 8 1935,82Y Sex: MALE BP: 158/56 HR: 85 bpm Sonogrphr: FREDY Tanner Pat. Stat.:Inpatient Room: [facility] Study Status:Final Echo Event ID:[id number] Order ID: [id number] Reason for Study:Hypoxia without radiographic explanation. Eval for shunt physiology as well. History / Clinical:COPD, Hypertension Procedures:2D Echo, Colorflow Doppler, Intravenous Saline Contrast SUMMARY: LV size is normal. LV EF is normal. RV size is normal. RV systolic function is normal. No intracardiac shunt detected. 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 FINDINGS: LV: LV size is normal. LV EF is normal. Overall wall motion is normal. Estimated EF is 65-69% RV: RV size is normal. RV systolic function is normal. LA: LA volume is mildly enlarged. RA: RA size is normal. AO: Aortic root diameter is normal. ELIAS: Trace posterolateral pericardial effusion. Cntrst: No intracardiac shunt detected. 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 AV: No structural AV abnormalities noted. MV: No structural MV abnormalities noted. PV: No structural PV abnormalities noted. TV: No structural TV abnormalities noted. A trace of tricuspid regurgitation Malloy: Diastolic dysfunction Grade I (Mild): Impaired relaxation with normal LV filling pressures. Other: Estimated PA systolic pressure is 37 mmHg, assuming a mean RAP of 5 mmHg. MEASUREMENTS: 2D Parasternal Long [place] LA Ds 4.8 cm LVPWd 1.2 cm LVOT 1.8 cm Ao An 2.1 cm LVIDd 4.6 cm Index 2.3 cm/m Ao Rtd 3.4 cm Index 1.7 cm/m LVIDs 2.6 cm LV Mass 185.7 g (122-174) LV%fs 43.4 % LVM Index 94.2 g/m2 IVSd 1 cm RWT 0.5 LA Sng Plane LA Area 23.6 cm2 (8.8-23.4) LA Vol 75.5 ml Index 38.3 ml/m LA LngAx 6.2 cm RA Sng Plane RA Area 16.3 cm2 (8.3-19.5) RA Vol 37.3 ml Index 18.9 ml/m RA LngAx 5.8 cm Signed 04/20/2018 07:14 PM Asim H. Little, M.D. Performing Organization Address City/[facility]/Zipcode Phone Number [facility] [address] [place] [address] * Total iron binding capacity (04/20/2018 3:40 AM LABORATORY ENGINEER) Iron level 38 (L) 59 - 158 ug/dL [facility] Iron binding 317 200 - 400 ug/dL [facility] % Saturation 12.0 (L) 20.0 - 40.0 % [facility] Specimen Plasma specimen Performing Organization Address City/[facility]/Zipcode Phone Number [facility] [place] [address] PATHOLOGY AND [facility] MEDICINE [address] * Uric acid level (04/20/2018 3:40 AM LABORATORY ENGINEER) Uric acid 5.1 3.4 - 7.0 mg/dL [facility] Specimen Plasma specimen Performing Organization Address [facility] Phone Number [facility] [place] [address] [facility] MEDICINE [address] * Hemoglobin A1c (04/20/2018 3:40 AM LABORATORY ENGINEER) Hemoglobin A1C 6.9 (H) 4.0 - 5.6 % AVENAL Comment: [facility] HbA1c cutoffs for diagnosing HOSPITAL diabetes: 4.0% - 5.6%=normal 5.7% - 6.4%=increased risk for diabetes (prediabetes) >=6.5%=diabetes Goals for glycemic control (ADA 2016) < 7.0%Target for non adults with diabetes. More or less stringent targets may be appropriate for individual patients. <7.5% Target for Children and adolescents with type 1 diabetes. Specimen Blood Performing Organization Address City/[facility] Phone Number [facility] [place] [address] PATHOLOGY AND [facility] MEDICINE [address] * Uric acid level, urine, random (04/20/2018 2:20 AM LABORATORY ENGINEER) Uric acid, 3 mg/dL AVENAL urine, random [facility] Specimen Urine Performing Organization Address [facility]/Zipcode Phone Number [facility] [place] [address] PATHOLOGY AND GENOMIC MEDICINE [facility] [address] * Creatinine level, urine, random (04/20/2018 2:20 AM LABORATORY ENGINEER) Creatinine, 53 mg/dL AVENAL urine, random [facility] Specimen Urine Performing Organization Address City/State/Zipcode Phone Number [facility] DEPARTMENT OF [address] [place] [address] PATHOLOGY AND GENOMIC MEDICINE [address] * US Renal (04/20/2018 12:08 AM LABORATORY ENGINEER) Specimen Narrative Performed At Examination:US RENAL [facility] Clinical History: Renal failureacute (kidney injury) Comparison: None. Findings: Bilateral renal ultrasound was performed. The right kidney measures 12.4 x 5.9 x 6.5 cm. The cortex measures 1.2 cm. The left kidney measures 9.9 x 5.6 x 6.2 cm. The cortex measures 0.9 cm. There is a left renal cyst noted measuring 2.3 x 2.2 x 1.8 cm. Another cyst measures 1.5 x 1.3 x 1.4 cm. Both cysts are anechoic. No hydronephrosis or urinary calculus is seen. Urinary bladder is unremarkable. IMPRESSION: 1. Left renal cysts. [facility]-[id number] Procedure Note Interface, Radiology Results Incoming - 04/20/2018 12:15 AM LABORATORY ENGINEER Examination: US RENAL Clinical History: Renal failure acute (kidney injury) Comparison: None. Findings: Bilateral renal ultrasound was performed. The right kidney measures 12.4 x 5.9 x 6.5 cm. The cortex measures 1.2 cm. The left kidney measures 9.9 x 5.6 x 6.2 cm. The cortex measures 0.9 cm. There is a left renal cyst noted measuring 2.3 x 2.2 x 1.8 cm. Another cyst measures 1.5 x 1.3 x 1.4 cm. Both cysts are anechoic. No hydronephrosis or urinary calculus is seen. Urinary bladder is unremarkable. IMPRESSION: 1. Left renal cysts. [facility]-[id number] Performing Organization Address [facility]/Zipcode Phone Number [facility] [address] [place] [address] * CT Stroke Brain Wo Contrast (04/19/2018 10:42 PM LABORATORY ENGINEER) Specimen Narrative Performed At EXAMINATION:CT STROKE BRAIN WO CONTRAST RADIANT CT IMAGING WAS PERFORMED WITH ITERATIVE RECONSTRUCTION TECHNIQUE AND/OR AUTOMATED EXPOSURE CONTROL TO REDUCE RADIATION DOSE. CLINICAL HISTORY:Focal neuro deficit6 hrsstroke suspected COMPARISON:None. FINDINGS: 1. There is no acute intracranial abnormality. Specifically there is no intracranial hemorrhage, mass effect or acute infarction. 2.There are minimal if any nonspecific cerebral white matter microvascular changes. There is moderate to marked cerebral cortical volume loss and mild cerebellar volume loss. 3.Atherosclerotic calcification is noted in the distal internal carotid and to a lesser degree vertebral arteries. 4.There is minimal mucosal thickening in the ethmoid and maxillary sinuses. There is mild bilateral proptosis with no orbital mass. There is bilaterally aphakia. IMPRESSION: No acute abnormality. ASIM CALDWELL was informed of these findings on 04/19/2018 10:44 PM and acknowledged understanding of the findings. [facility]-[id number] Procedure Note Interface, Radiology Results Incoming - 04/19/2018 10:48 PM LABORATORY ENGINEER EXAMINATION: CT STROKE BRAIN WO CONTRAST CT IMAGING WAS PERFORMED WITH ITERATIVE RECONSTRUCTION TECHNIQUE AND/OR AUTOMATED EXPOSURE CONTROL TO REDUCE RADIATION DOSE. CLINICAL HISTORY: Focal neuro deficit 6 hrs stroke suspected COMPARISON: None. FINDINGS: 1. There is no acute intracranial abnormality. Specifically there is no intracranial hemorrhage, mass effect or acute infarction. 2. There are minimal if any nonspecific cerebral white matter microvascular changes. There is moderate to marked cerebral cortical volume loss and mild cerebellar volume loss. 3. Atherosclerotic calcification is noted in the distal internal carotid and to a lesser degree vertebral arteries. 4. There is minimal mucosal thickening in the ethmoid and maxillary sinuses. There is mild bilateral proptosis with no orbital mass. There is bilaterally aphakia. IMPRESSION: No acute abnormality. ASIM CALDWELL was informed of these findings on 04/19/2018 10:44 PM and acknowledged understanding of the findings. [facility]-[id number] Performing Organization Address City/State/Zipcode Phone Number [facility] [address] [place] [address] * Prepare RBC, 1 Units (04/19/2018 10:11 PM LABORATORY ENGINEER) Product name Apheresis Red Cell AS3 #1 LR [facility] Unit number [id number] [facility] Product code [id number] [facility] Dispense status Transfused [facility] Blood [id number] AVENAL expiration date [facility] Blood type code 0600 [facility] Blood type A NEGATIVE [facility] Specimen Blood Performing Organization Address City/[facility] Phone Number [facility] [place] [address] PATHOLOGY AND GENOMIC MEDICINE [address] * Thyroid stimulating hormone (04/19/2018 10:11 PM LABORATORY ENGINEER) TSH 6.71 (H) 0.27 - 4.20 uIU/mL [facility] Specimen Plasma specimen Performing Organization Address [facility] Phone Number [facility] [place] [address] PATHOLOGY AND [facility] MEDICINE [address] * T4, free (04/19/2018 10:11 PM LABORATORY ENGINEER) T4, free 0.7 (L) 0.9 - 1.7 ng/dL [facility] Specimen Plasma specimen Performing Organization Address [facility] Phone Number [facility] [place] [address] PATHOLOGY AND GENOMIC MEDICINE [address] * CRITICAL CARE (04/19/2018 8:15 PM LABORATORY ENGINEER) Narrative Performed At Asim Caldwell MD 04/21/20181:12 PM Critical Care Performed by: Asim Caldwell MD Authorized by: Asim Caldwell MD Critical care provider statement: Critical care time (minutes):35 Critical care time was exclusive of:Separately billable procedures and treating other patients Critical care was necessary to treat or prevent imminent or life-threatening deterioration of the following conditions:Cardiac failure and circulatory failure Critical care was time spent personally by me on the following activities:Blood draw for specimens, development of treatment plan with patient or surrogate, discussions with consultants, discussions with primary provider, ordering and performing treatments and interventions, ordering and review of laboratory studies, ordering and review of radiographic studies, pulse oximetry, evaluation of patient's response to treatment and re-evaluation of patient's condition Sidney 'yes' if you are taking over critical care for this patient from another provider.: no after 08/24/2017 Insurance Type Payer Benefit Subscriber ID Effective Phone Address Plan / Dates Group Medicare MEDICARE MEDICARE xxxxxxxxxxx 2003- [place], PART A AND Present [place] B Medicaid MEDICAID MEDICAID xxxxxxxxx 2011-Lobo ross Advance Directives Patient has advance care planning documents, and code status on file. For more i nformation, please contact: Homero Oconnor [address] [place] [address] Date Inactivated Comments Code Status Date Activated 07/22/2018 9:14 PM Full Code 07/21/2018 8:07 PM Code Status decision reached by: Patient
[2018-08-25 04:31] LABS: BILIRUBIN,URINE NEGATIVE (NEGATIVE); CLARITY,URINE CLOUDY (CLEAR); COLOR,URINE YELLOW (YELLOW); KETONES,URINE NEGATIVE (NEGATIVE); LEUKOCYTE ESTERASE ,URINE SMALL (NEGATIVE); NITRITE,URINE NEGATIVE (NEGATIVE); PROTEIN,URINE DIPSTICK 1+ (NEGATIVE); URINE UROBILINOGEN 0.2 mg/dL (0.2 - 1)
--- NOTE | 2018-08-25 04:45 | Diagnostic Imaging Report ---
EXAMINATION: CHEST SINGLE (PORTABLE) INDICATION: CHEST PAIN COMPARISON: Chest radiograph 04/02/2018 FINDINGS: AP view TUBES and LINES: ET tube tip terminates in the mid intrathoracic trachea. Left neck central venous catheter with tip in the expected location of the left innominate vein. LUNGS: Confluent opacities in the right upper and lower lung and in the left central and lower lung. PLEURA: No pleural effusion or pneumothorax. HEART AND MEDIASTINUM: Cardiac size is mildly enlarged. BONES AND SOFT TISSUES: No acute osseous lesion. Soft tissues are unremarkable. UPPER ABDOMEN: No free air under the diaphragm. IMPRESSION: Bilateral airspace disease may represent pulmonary edema, or multifocal pneumonia. Mild cardiomegaly. Signed by: Maurizio Escalante DO on 08/25/2018 4:42 AM
[2018-08-25 04:46] LABS: BACTERIA,URINE MANY /HPF; EPITHELIAL CELLS,URINE FEW /LPF; TRANSITIONAL EPI CELLS,URINE FEW; WBC,URINE (MAN) 21-50 /HPF (0-5)
[2018-08-25 04:47] LABS: AMORPHOUS SEDIMENT,URINE MODERATE (FEW); RENAL EPITHELIAL CELLS,URINE FEW; YEAST,URINE MANY
[2018-08-25] MEDS ORDERED: SODIUM CHLORIDE 0.9% 500ML 500 ML ONE (04:47)
[2018-08-25] MEDS ORDERED: PROPOFOL IV EMULSION 10MG/ML 100 ML ONE ×2 (05:29→19:18)
[2018-08-25] MEDS ORDERED: CISATRACURIUM BESYLATE IV ONE (05:37)
[2018-08-25] MEDS ORDERED: EPINEPHRINE HCL SYRINGE ONE ×2 (05:43→16:52)
[2018-08-25] MEDS ORDERED: VASOPRESSIN 100 UNIT in DEXTROSE 5% 100ML 100 ML IV PRN (05:45)
[2018-08-25] MEDS ORDERED: SODIUM CHLORIDE 0.9% 250ML 250 ML ONE (05:45)
[2018-08-25] MEDS ORDERED: EPINEPHRINE HCL 1:1000 1ML 4 MG in DEXTROSE 5% 250ML 250 ML IV PRN ×2 (05:45→06:00)
[2018-08-25] MEDS ORDERED: SODIUM CHLORIDE 0.9% 50ML 50 ML ONE (05:46)
[2018-08-25] MEDS ORDERED: DEXTROSE 5% 250ML 250 ML IV ONE (05:54)
[2018-08-25] MEDS ORDERED: CISATRACURIUM BESYLATE 100 MG in SODIUM CHLORIDE 0.9% 100 ML 100 ML IV PRN (06:00)
[2018-08-25] MEDS ORDERED: INSULIN REGULAR, HUMAN 3ML VL 100 UNIT in SODIUM CHLORIDE 0.9% 100 ML 100 ML IV SCH ×2 (06:00)
[2018-08-25] MEDS ORDERED: CEFEPIME HCL 1 GM VIAL IV SCH (06:00)
[2018-08-25] MEDS ORDERED: ACETAMINOPHEN 325 MG/10 ML UDC NG PRN (06:30)
[2018-08-25 06:39] LABS: BASOPHILS % 0.3 % (0.0-1.0); EOSINOPHILS % 0.1 % (0.0-6.0); HEMOGLOBIN 9.1 g/dL (14.0-18.0); LYMPHOCYTES # (AUTO) 4.1 (1.0-3.2); LYMPHOCYTES % 36.1 % (18.0-39.1); MEAN CORPUSCULAR HEMOGLOBIN 28.3 pg (28-32); MEAN CORPUSCULAR HGB CONC 30.3 g/dL (31-35); MEAN CORPUSCULAR VOLUME 93.2 fL (81-99); MONOCYTES # (AUTO) 0.6 (0.2-0.8); MONOCYTES % 4.9 % (4.4-11.3); NEUTROPHILS # (AUTO) 6.2 (2.1-6.9); NEUTROPHILS % 55.3 % (38.7-80.0); PLATELET COUNT 116 x10e3/uL (140-360); RED BLOOD COUNT 3.22 x10e6/uL (4.3-5.7)
[2018-08-25] MEDS ORDERED: EYE LUBRICANT OPTH OINT 3.5GM TUBE OP PRN ×2 (06:45)
[2018-08-25 07:00] LABS: ANION GAP 21.1 mmol/L (8-16); CALCIUM 7.5 mg/dL (8.4-10.2); CREATININE, SERUM 2.82 mg/dL (0.72-1.25); MAGNESIUM 2.3 MG/DL (1.3-2.1); PHOSPHORUS 6.8 MG/DL (2.3-4.7); POTASSIUM 4.1 mmol/L (3.5-5.1)
[2018-08-25] MEDS ORDERED: SOD POLYSTYRENE SULFONATE SUSP 15 GM/60 ML BTL PO ONE (07:00)
[2018-08-25] MEDS ORDERED: INSULIN REGULAR, HUMAN 100 UNIT/1 ML 3ML VIAL SQ ONE (07:00)
--- NOTE | 2018-08-25 07:55 | NUR ---
received patient from kenya tanner. patient is on vent, pupils 4+, not reactive to light, propofol and nimbex running. train of four is 0. family members at bedside. levophed and epi titrated maintain bp. cooling catheter in left groin, patient's temp is 33 degrees C. lungs with rhonchi.
[2018-08-25] MEDS: NOREPINEPHRINE INJ 4MG/4ML 8 MG in DEXTROSE 5% 250ML 250 ML IV SCH ×2 (08:30→20:31)
[2018-08-25 09:16] LABS: INR 1.28; PROTHROMBIN TIME 16.6 seconds (11.9-14.5)
[2018-08-25] MEDS ORDERED: SODIUM CHLORIDE 0.9% 1000ML 1,000 ML IV ONE (09:30)
[2018-08-25] MEDS ORDERED: DEXTROSE 50% SYRINGE 50 ML IV PRN (09:30)
[2018-08-25] MEDS: CEFEPIME 1GM/NS 0.9% 50 ML 50 ML IV SCH ×2 (09:50→20:39)
[2018-08-25] MEDS: SODIUM CHLORIDE 0.9% 1000ML 1,000 ML IV SCH ×2 (09:50→20:32)
[2018-08-25] MEDS: METHYLPREDNISOLONE SOD SUCC 125 MG/2ML VIAL IV SCH ×2 (09:50→20:39)
[2018-08-25] MEDS ORDERED: SODIUM CHLORIDE 0.9% 250ML 500 ML ONE (09:59)
[2018-08-25] MEDS: EYE LUBRICANT OPTH OINT 3.5GM TUBE OP SCH ×4 (10:00→20:39)
--- NOTE | 2018-08-25 10:00 | NUR ---
notified dr beasley of consult. she states she will see the patient after the rewarming period
[2018-08-25] MEDS: SODIUM CHLORIDE 0.9% IV SCH ×4 (10:45→22:12)
[2018-08-25] MEDS: [UNRECOGNIZED DRUG - OTHER] IV SCH ×4 (10:45→22:12)
[2018-08-25] MEDS: INSULIN REGULAR IV SCH ×4 (10:45→22:12)
[2018-08-25] MEDS: HUMAN IV SCH ×4 (10:45→22:12)
[2018-08-25 10:57] LABS: BASOPHILS % 0.2 % (0.0-1.0); EOSINOPHILS # (AUTO) 0.1 (0.0-0.4); EOSINOPHILS % 0.5 % (0.0-6.0); HEMATOCRIT 27.6 % (38.2-49.6); HEMOGLOBIN 8.6 g/dL (14.0-18.0); LYMPHOCYTES # (AUTO) 4.6 (1.0-3.2); LYMPHOCYTES % 36.1 % (18.0-39.1); MEAN CORPUSCULAR HEMOGLOBIN 28.2 pg (28-32); MEAN CORPUSCULAR HGB CONC 31.2 g/dL (31-35); MEAN CORPUSCULAR VOLUME 90.5 fL (81-99); MONOCYTES # (AUTO) 0.6 (0.2-0.8); NEUTROPHILS # (AUTO) 7.1 (2.1-6.9); NEUTROPHILS % 55.3 % (38.7-80.0); PLATELET COUNT 103 x10e3/uL (140-360); RED BLOOD COUNT 3.05 x10e6/uL (4.3-5.7); RED CELL DISTRIBUTION WIDTH 16.2 % (11.7-14.4)
[2018-08-25 11:07] LABS: INR 1.44; PROTHROMBIN TIME 18.1 seconds (11.9-14.5)
[2018-08-25 11:08] LABS: PARTIAL THROMBOPLASTIN TIME 43.9 seconds (23.8-35.5)
[2018-08-25 11:20] LABS: CREATINE KINASE MB 17.2 ng/mL (0-5.0)
[2018-08-25 11:55] LABS: CALCIUM 7.7 mg/dL (8.4-10.2); CREATININE, SERUM 2.96 mg/dL (0.72-1.25); PHOSPHORUS 6.2 MG/DL (2.3-4.7)
--- NOTE | 2018-08-25 12:16 | Consultation ---
DATE OF CONSULTATION: 08/25/2018 Cardiology Consultation REQUESTING PHYSICIAN: Dr. Amparo Acevedo. REASON FOR CONSULT: Cardiac arrest. HISTORY OF PRESENT ILLNESS: This is an 82-year-old man with history of diabetes mellitus, hyperlipidemia, hypertension, COPD, and chronic kidney disease stage 4, who presents with complaints of shortness of breath and subsequent cardiac arrest. All history is obtained from the medical record and the patient's family at bedside as the patient is currently intubated and sedated on hypothermia protocol. The patient's daughters report the patient was recently hospitalized for two months at [facility] for shortness of breath and hypoxia. He was diagnosed with aspiration pneumonia versus pulmonary hypertension and subsequently discharged home. Family indicates he began to become more hypoxic 3-4 weeks ago and required initiation of 2-3 L of home oxygen. For the last 2-3 days, the family reports his hypoxia has progressively worsened with increasing lower extremity edema that was noted. The day of admission, the patient was walking to the bathroom when he fell to the ground. Initially, the patient was responsive and calling for help. Unfortunately, the patient's family members who are at bedside were unable to help him get back up. He subsequently quickly became unresponsive and CPR was initiated by his daughter and EMS was called, unknown what initial rhythm was seen on EMS arrival, but the patient was documented to have PEA arrest while in the ER, total CPR approximately 80 minutes prior to return of spontaneous circulation, the patient was unresponsive post code and was started on hypothermia protocol. Cardiology is consulted for evaluation of the patient's cardiac arrest. REVIEW OF SYSTEMS: Unable to obtain secondary to intubation and sedation. PAST MEDICAL HISTORY: 1. Hypertension. 2. Hyperlipidemia. 3. Diabetes mellitus. 4. COPD. 5. Chronic kidney disease stage 4. 6. Parkinson disease. PAST SURGICAL HISTORY: Denied. ALLERGIES: PLEASE SEE EMR. MEDICATIONS: Please see medication list. SOCIAL HISTORY: The patient previously smoked one pack a day for 30 years, but quit at the age of 58. Family reports occasional alcohol use, no illicit drugs. FAMILY HISTORY: Pertinent for brother with permanent pacemaker. PHYSICAL EXAMINATION: VITAL SIGNS: Temperature 91.4 degrees, pulse 59, respiratory rate 15, blood pressure 124/57, and oxygen saturation 95% on mechanical ventilation. GENERAL: Well-developed, well-nourished man, unresponsive, in no acute distress. HEENT: Normocephalic, atraumatic. NECK: Supple. No thyromegaly or cervical lymphadenopathy. No carotid bruits. LUNGS: Clear to auscultation in anterior lung davis. No wheezes or crackles. CARDIOVASCULAR: Bradycardic but regular. No murmur. Normal S1, S2. ABDOMEN: Soft, nontender. EXTREMITIES: 2+ pitting edema is present. NEURO: Unable to assess secondary to medical condition. LABORATORY DATA: WBC 12.83, hemoglobin 8.6, hematocrit 27.6, platelets 103. Sodium 140, potassium 4.1, chloride 101, CO2 of 22, BUN 69, creatinine of 2.82. Lactate 50.1. BNP 240. Troponin 2.415, CK-MB 17.2, CK 418. IMAGING DATA: Chest x-ray; bilateral airspace disease may represent pulmonary edema or multifocal pneumonia, mild cardiomegaly. TELEMETRY: Normal sinus rhythm. IMPRESSION: 1. Cardiac arrest, suspect respiratory arrest. 2. Acute respiratory failure, currently intubated. 3. Hypertension. 4. Hyperlipidemia. 5. Diabetes mellitus. 6. Chronic obstructive pulmonary disease. 7. Chronic kidney disease stage 4. 8. Elevated troponin. RECOMMENDATIONS: Obtain echocardiogram, trend cardiac biomarkers. This is likely secondary to the patient's prolonged cardiac arrest. Place the patient on aspirin. Can discuss further ischemic evaluation if the patient demonstrates neurological recovery. Continue supportive care with Levophed and epinephrine. Wean to keep MAP above 65. Monitor the patient closely on telemetry. Ventilator management per Pulmonary. Continue home cardiac medications with the exception of losartan given pressor support. Given prolonged CPR, the patient's prognosis is likely to be quite poor, recommend Neurology consultation. This was discussed with the patient's daughters who were at bedside who expressed understanding of the severity of his illness. Thank you for this consult. We will continue to follow. Connie Costello MD ABS/MODL /[id number]
--- NOTE | 2018-08-25 12:17 | Diagnostic Imaging Report ---
PROCEDURE: A single AP view of the chest. COMPARISON: Earlier 08/25/2018. INDICATIONS: PULMONARY EDEMA FINDINGS: Unchanged position of endotracheal tube, which projects approximately 2.5 cm above the guy. Lung volumes are low with persistent, worsened bilateral alveolar and interstitial opacities. Small right and trace left pleural effusion suspected. No acute osseous abnormality. IMPRESSION: Stable position of endotracheal tube. Worsening pulmonary edema with new small right and trace left pleural effusion relative to 0156 hours. Dictated by: Дмитрий Sumner M.D. on 08/25/2018 at 12:21 Electronically approved by: Дмитрий Sumner M.D. on 08/25/2018 at 12:21
[2018-08-25 12:29] LABS: LYMPHOCYTES % (MANUAL) 32 % (19-48); MONOCYTES % (MANUAL) 6 % (3.4-9.0); NEUTROPHILS % (MANUAL) 62 % (40-74)
[2018-08-25 12:30] LABS: HYPOCHROMASIA SLIGHT; PLATELET ESTIMATE ADEQUATE; PLATELET MORPHOLOGY COMMENT NORMAL; RBC MORPHOLOGY COMMENT NORMAL
[2018-08-25 12:33] LABS: ABG HCO3 21 mmol/L (23-28); ABG PCO2 41 mmHg (41-51); ABG PH 7.31 (7.31-7.41); ABG PO2 68 mmHg (80-105)
--- NOTE | 2018-08-25 13:00 | NUR ---
notified dr fletcher of blood gas result and of urine output continuing to be low. orders bumex x1, see mar
[2018-08-25] MEDS ORDERED: BUMETANIDE INJ 0.25MG/ML 4ML VIAL IV ONE (13:15)
--- NOTE | 2018-08-25 16:00 | NUR ---
spoke to dr. condon about ramos seeing the patient tmrw. also notified about low urine output. no new orders
--- NOTE | 2018-08-25 16:17 | History and Physical ---
HISTORY OF PRESENT ILLNESS: Mr. Plascencia is an 82-year-old man with history of chronic kidney disease stage 4, COPD, hypertension, hyperlipidemia, who had recurrent episodes of COPD exacerbation. As per daughter, his oxygen was low at home. Went yesterday to the restroom, fell on his belly. He was found to be unresponsive. Daughter started doing a CPR. The ambulance was called, they continued CPR. He was brought to the emergency room where he got intubated and transferred to ICU. PAST MEDICAL HISTORY: COPD, hypertension, hyperlipidemia, chronic kidney disease stage 4. PAST SURGICAL HISTORY: Denies. SOCIAL HISTORY: He used to smoke. He does not drink alcohol. He lives at home with his family. ALLERGIES: NO KNOWN DRUG ALLERGIES. PHYSICAL EXAMINATION: GENERAL: Today, the patient is orally intubated and unresponsive to pain. VITAL SIGNS: Temperature is 91.4, blood pressure 124/57. HEART: Regular rate. LUNGS: Poor inspiratory effort. ABDOMEN: Distended and soft. LABORATORY DATA: On the blood work, white count is 11.24, hemoglobin 9.1, hematocrit is 30. Potassium 4.1. Creatinine is 2.82. Glucose 250. Lactic acid is 60. Troponin is 1.527. BNP 240. Cultures are pending. Chest x-ray shows bilateral airspace disease, which may represent pulmonary edema, multifocal pneumonia, mild cardiomegaly. ASSESSMENT: 1. Status post cardiac arrest. 2. Acute respiratory failure, on ventilator. 3. History of chronic obstructive pulmonary disease. 4. Chronic kidney disease stage 4. 5. Hypertension. 6. Hyperlipidemia. PLAN: At the present time, the patient is status post cardiac arrest with 90 minutes of CPR. We are going to get Neurology consult to evaluate the patient for anoxic encephalopathy. Meanwhile, we are going to continue with hypothermia protocol. He is on ventilator. Critical care consult with Dr. eG. Cardiology consult with Dr. Hancock. Continue to monitor mental status. Continue empiric IV antibiotics and fluids. All this was discussed for several minutes with daughter at bedside. All questions were answered to satisfaction. The overall prognosis of this patient is very poor due to the cardiac arrest and the long time that he underwent CPR. Family is aware. Amparo Acevedo MD SARIKA/MODL /[id number]
[2018-08-25] MEDS ORDERED: ATROPINE SULFATE 0.1 MG/ML 10ML SYR ONE (16:52)
[2018-08-25 18:44] LABS: BASOPHILS % 0.2 % (0.0-1.0); HEMATOCRIT 26.3 % (38.2-49.6); HEMOGLOBIN 8.3 g/dL (14.0-18.0); LYMPHOCYTES # (AUTO) 3.6 (1.0-3.2); MEAN CORPUSCULAR HEMOGLOBIN 28.6 pg (28-32); MEAN CORPUSCULAR HGB CONC 31.6 g/dL (31-35); MEAN CORPUSCULAR VOLUME 90.7 fL (81-99); MONOCYTES # (AUTO) 0.6 (0.2-0.8); MONOCYTES % 6.2 % (4.4-11.3); NEUTROPHILS # (AUTO) 5.6 (2.1-6.9); NEUTROPHILS % 55.3 % (38.7-80.0); PLATELET COUNT 109 x10e3/uL (140-360); RED CELL DISTRIBUTION WIDTH 16.1 % (11.7-14.4)
[2018-08-25 18:55] LABS: INR 1.34; PROTHROMBIN TIME 17.2 seconds (11.9-14.5)
[2018-08-25 18:56] LABS: PARTIAL THROMBOPLASTIN TIME 40.9 seconds (23.8-35.5)
[2018-08-25 19:00] LABS: ANION GAP 19.7 mmol/L (8-16); CREATININE, SERUM 3.16 mg/dL (0.72-1.25); MAGNESIUM 2.1 MG/DL (1.3-2.1); PHOSPHORUS 5.5 MG/DL (2.3-4.7); POTASSIUM 3.7 mmol/L (3.5-5.1)
[2018-08-25 19:07] LABS: CALCIUM 6.9 mg/dL (8.4-10.2)
[2018-08-25 19:34] LABS: CREATINE KINASE MB 27.2 ng/mL (0-5.0)
[2018-08-25] MEDS ORDERED: PROPOFOL IV EMULSION 10MG/ML 100 ML IV PRN (20:45)
[2018-08-25] MEDS ORDERED: SODIUM CHLORIDE 0.9% IV PRN (22:15)
[2018-08-25] MEDS ORDERED: CISATRACURIUM BESYLATE IV PRN (22:15)
--- NOTE | 2018-08-25 23:45 | NUR ---
Pulmonary/[facility] dictated [id number] Thanks.
[2018-08-26] VITALS (21 sets, daily range): BP systolic 94–124; BP diastolic 37–73
--- NOTE | 2018-08-26 00:30 | NUR ---
DR Ge @ bedside, Update given
[2018-08-26 00:33] LABS: BASOPHILS % 0.3 % (0.0-1.0); HEMOGLOBIN 8.3 g/dL (14.0-18.0); LYMPHOCYTES # (AUTO) 2.9 (1.0-3.2); LYMPHOCYTES % 36.6 % (18.0-39.1); MEAN CORPUSCULAR HEMOGLOBIN 27.9 pg (28-32); MEAN CORPUSCULAR HGB CONC 30.7 g/dL (31-35); MEAN CORPUSCULAR VOLUME 90.9 fL (81-99); MONOCYTES # (AUTO) 0.4 (0.2-0.8); MONOCYTES % 5.3 % (4.4-11.3); NEUTROPHILS # (AUTO) 4.4 (2.1-6.9); NEUTROPHILS % 56.1 % (38.7-80.0); PLATELET COUNT 113 x10e3/uL (140-360); RED BLOOD COUNT 2.97 x10e6/uL (4.3-5.7); RED CELL DISTRIBUTION WIDTH 16.2 % (11.7-14.4)
[2018-08-26 00:41] LABS: INR 1.28; PROTHROMBIN TIME 16.6 seconds (11.9-14.5)
[2018-08-26 00:42] LABS: PARTIAL THROMBOPLASTIN TIME 37.1 seconds (23.8-35.5)
--- NOTE | 2018-08-26 00:45 | NUR ---
Dr Ge notified of Ca 6.9. New orders rec'd
[2018-08-26 00:51] LABS: ANION GAP 20.7 mmol/L (8-16); CREATININE, SERUM 3.27 mg/dL (0.72-1.25); MAGNESIUM 2.1 MG/DL (1.3-2.1); PHOSPHORUS 5.5 MG/DL (2.3-4.7); POTASSIUM 3.7 mmol/L (3.5-5.1)
[2018-08-26] MEDS ORDERED: BUMETANIDE INJ 0.25MG/ML 4ML VIAL IV ONE ×2 (01:00→11:00)
[2018-08-26 01:05] LABS: CALCIUM 6.9 mg/dL (8.4-10.2)
[2018-08-26] MEDS: EYE LUBRICANT OPTH OINT 3.5GM TUBE OP SCH ×5 (01:27→18:10)
[2018-08-26] MEDS ORDERED: CALCIUM GLUCONATE 10% INJ 9.3 MEQ in SODIUM CHLORIDE 0.9% 100 ML 100 ML IV ONE (01:30)
[2018-08-26] MEDS ORDERED: CALCIUM GLUCONATE 10% INJ 0.465 MEQ/ML VIAL ONE ×2 (01:54→02:42)
[2018-08-26] MEDS ORDERED: SODIUM CHLORIDE 0.9% 100 ML ONE (02:44)
--- NOTE | 2018-08-26 06:14 | Diagnostic Imaging Report ---
EXAMINATION: CHEST SINGLE (PORTABLE) INDICATION: Intubated COMPARISON: Chest radiograph 08/25/2018 FINDINGS: AP view TUBES and LINES: ET tube tip terminates in the mid intrathoracic trachea. Left central venous catheter tip terminates in the proximal aspect of the left innominate vein. LUNGS: Persistent diffuse opacities, slightly improved compared to the prior. The opacities are worst in the right lung and left central and lower lung. PLEURA: Probable small bilateral pleural effusions. HEART AND MEDIASTINUM: Cardiac size is mildly enlarged. BONES AND SOFT TISSUES: No acute osseous lesion. Soft tissues are unremarkable. UPPER ABDOMEN: No free air under the diaphragm. IMPRESSION: ET tube tip terminates in the mid intrathoracic trachea. Persistent bilateral airspace disease, slightly improved compared to day prior, likely pulmonary edema with mild cardiomegaly and probable small bilateral pleural effusions. Signed by: Maurizio Escalante DO on 08/26/2018 6:10 AM
--- NOTE | 2018-08-26 06:15 | NUR ---
Rewarming started. Set temp: 36.1 celsius
--- NOTE | 2018-08-26 06:15 | Consultation ---
DATE OF CONSULTATION: 08/25/2018 Pulmonary Medicine Consult REASON FOR REFERRAL: Respiratory failure. HISTORY OF PRESENT ILLNESS: Mr. Plascencia is a pleasant 82-year-old gentleman well known to me with cardiac arrest. The patient was going to the restroom yesterday and he felt dizzy. His family grabbed him. The patient went to the ground shortly thereafter. He was unresponsive. EMS came out and found asystole at 0011 hours. On the code sheet at 0032 hours, the patient had return of spontaneous circulation. He is in the hospital, intubated. Urinary output is failing. He is on Levophed 8 mcg/minute and epinephrine 3 mcg/minute. ABG was 7.07/65/94/19 on entry. PAST MEDICAL HISTORY: Asthma, hypertension, hyperlipidemia, obstructive sleep apnea, CKD, pulmonary hypertension, and Parkinson disease. MEDICATIONS: Medication list reviewed per the chart record. Include sildenafil 20 every 8 hours, prednisone 10 mg, and Lasix 40 t.i.d. as outpatient. ALLERGIES: NO KNOWN DRUG ALLERGIES. FAMILY HISTORY: Noncontributory. SOCIAL HISTORY: The patient is a former smoker. No alcohol. No drugs. 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 REVIEW OF SYSTEMS: Cannot get as he is altered. OBJECTIVE: VITAL SIGNS: The patient's vitals reviewed per the chart record, unstable. GENERAL: The patient paralyzed, intubated on ventilator. LUNGS: With fair rhonchi. EXTREMITIES: The patient with 2 to 3+ edema. Some leg edema. LABORATORY DATA: Labs reviewed per the chart record. 11 white count, 30 hematocrit and 116 platelets, 2.8 creatinine, 4.1 potassium. IMPRESSION: 1. Acute cardiac arrest, status post CPR. 2. Acute respiratory failure, on ventilator. 3. Acute on chronic kidney failure. 4. Chronic obstructive pulmonary disease/asthma. 5. Hypertension. 6. Hyperlipidemia. 7. History of Parkinson disease. 8. Baseline debility/weakness. 9. Secondary pulmonary hypertension. 10. Recent prednisone use. 11. Abnormal location of left central line. 12. Right pneumonia, aspiration versus other. Continue current treatment. We suggested ventilator. We tried to maintain kidney perfusion. The patient will need neurologic prognostication if he survives the initial multiorgan injury process. We will follow along closely. Wean pressors as tolerated. Thank you very much, Dr. Acevedo for allowing me a chance to participate in the care of Mr. Plascencia. Please call for questions. Greater than 30 minutes in direct care and multiple followups today. MD BLANKA Torres/ESSENCE /[id number]
[2018-08-26 06:20] LABS: BASOPHILS % 0.1 % (0.0-1.0); HEMOGLOBIN 8.4 g/dL (14.0-18.0); LYMPHOCYTES # (AUTO) 2.6 (1.0-3.2); LYMPHOCYTES % 36.7 % (18.0-39.1); MEAN CORPUSCULAR HEMOGLOBIN 28.3 pg (28-32); MEAN CORPUSCULAR HGB CONC 31.1 g/dL (31-35); MEAN CORPUSCULAR VOLUME 90.9 fL (81-99); MONOCYTES # (AUTO) 0.5 (0.2-0.8); MONOCYTES % 7.1 % (4.4-11.3); NEUTROPHILS # (AUTO) 3.9 (2.1-6.9); NEUTROPHILS % 54.8 % (38.7-80.0); PLATELET COUNT 104 x10e3/uL (140-360); RED BLOOD COUNT 2.97 x10e6/uL (4.3-5.7); RED CELL DISTRIBUTION WIDTH 16.3 % (11.7-14.4)
[2018-08-26] MEDS: SODIUM CHLORIDE 0.9% 1000ML 1,000 ML IV SCH ×2 (06:26→18:10)
[2018-08-26 06:31] LABS: INR 1.24; PARTIAL THROMBOPLASTIN TIME 35.2 seconds (23.8-35.5); PROTHROMBIN TIME 16.2 seconds (11.9-14.5)
[2018-08-26 06:38] LABS: ALBUMIN 1.8 g/dL (3.5-5.0); BILIRUBIN,DIRECT 0.7 mg/dL (0.0-0.5)
[2018-08-26 06:52] LABS: ANION GAP 20.1 mmol/L (8-16); CALCIUM 7.5 mg/dL (8.4-10.2); CREATININE, SERUM 3.32 mg/dL (0.72-1.25); MAGNESIUM 2.2 MG/DL (1.3-2.1); PHOSPHORUS 6.2 MG/DL (2.3-4.7); POTASSIUM 4.1 mmol/L (3.5-5.1)
[2018-08-26] MEDS: NOREPINEPHRINE INJ 4MG/4ML 8 MG in DEXTROSE 5% 250ML 250 ML IV SCH (07:00)
[2018-08-26] MEDS ORDERED: NOREPINEPHRINE 8 MG/D5W 250 ML 250 ML ONE (07:03)
[2018-08-26] MEDS ORDERED: CEFEPIME 1GM/NS 0.9% 50 ML 50 ML IV SCH (09:00)
[2018-08-26] MEDS ORDERED: ASPIRIN 81 MG ENTERIC COATED PO SCH (09:00)
[2018-08-26] MEDS ORDERED: METHYLPREDNISOLONE SOD SUCC 40 MG/ML VIAL 1ML IV SCH (09:00)
--- NOTE | 2018-08-26 09:39 | NUR ---
updated dr. mortensen with patient fluid status. low uop. will continue to monitor patient.
[2018-08-26 10:54] LABS: BAND NEUTROPHILS % (MANUAL) 6 %; LYMPHOCYTES % (MANUAL) 22 % (19-48); METAMYELOCYTES % (MANUAL) 3 % (0-0); MONOCYTES % (MANUAL) 7 % (3.4-9.0); NEUTROPHILS % (MANUAL) 62 % (40-74); PLATELET ESTIMATE SLIGHTLY DECREASED; PLATELET MORPHOLOGY COMMENT NORMAL; RBC MORPHOLOGY COMMENT NORMAL
[2018-08-26 10:55] LABS: ANISOCYTOSIS S; OVALOCYTES FEW; POIKILOCYTOSIS MODERATE; POLYCHROMASIA S; TEAR DROP CELLS FEW
[2018-08-26] MEDS ORDERED: MANNITOL 25% 12.5GM/50 ML VIAL IV ONE (11:30)
[2018-08-26] MEDS ORDERED: MANNITOL 25% 12.5GM/50ML 50 ML ONE (12:35)
--- NOTE | 2018-08-26 12:43 | Progress Note ---
DATE: 08/26/2018 SUBJECTIVE: Mr. Plascencia is an 82-year-old male with history of chronic kidney disease stage 4, COPD, hypertension, and hyperlipidemia, who has recurrent episodes of COPD exacerbation, fell in the bathroom apparently on his belly. He was unresponsive. The daughter started CPR, EMS came, and he was brought to the emergency room, where he was intubated and transferred to ICU. PHYSICAL EXAMINATION: GENERAL: Today, he remains orally intubated. VITAL SIGNS: The temperature is a 91.7 and blood pressure 108/57. HEART: Regular rate. LUNGS: Poor inspiratory effort. ABDOMEN: Distended and soft. LABORATORY DATA: On the blood work, potassium 4.1, creatinine is 3.32, and glucose 113. White count 7.17, hemoglobin 8.4, and hematocrit 27. ASSESSMENT AND PLAN: 1. Acute cardiac arrest, status post cardiopulmonary resuscitation. 2. Acute respiratory failure, on ventilator. 3. Acute on chronic kidney failure. 4. Chronic obstructive pulmonary disease exacerbation. 5. History of hypertension. 6. Hyperlipidemia. 7. Parkinson disease. 8. Right-sided pneumonia, probably due to aspiration. Plan at present time is, we are awaiting for neurologist to evaluate the patient. The patient is anoxic. The family is going to decide what they wanted to do so far. Continue vent. Continue empirical antibiotics. Continue IV fluids. All this was discussed with the family at bedside. All questions were answered to satisfaction. The overall prognosis of the patient is poor. I spent more than 35 minutes examining the patient, reviewing overnight events, lab results, x-rays, and discussing plan of care with family. MD SARIKA Coppola/ESSENCE /[id number]
[2018-08-26 13:52] LABS: BASOPHILS % 0.2 % (0.0-1.0); HEMATOCRIT 25.2 % (38.2-49.6); LYMPHOCYTES # (AUTO) 2.2 (1.0-3.2); MEAN CORPUSCULAR HEMOGLOBIN 28.5 pg (28-32); MEAN CORPUSCULAR HGB CONC 31.7 g/dL (31-35); MEAN CORPUSCULAR VOLUME 89.7 fL (81-99); MONOCYTES # (AUTO) 0.6 (0.2-0.8); MONOCYTES % 8.7 % (4.4-11.3); NEUTROPHILS # (AUTO) 3.7 (2.1-6.9); NEUTROPHILS % 56.7 % (38.7-80.0); PLATELET COUNT 88 x10e3/uL (140-360); RED BLOOD COUNT 2.81 x10e6/uL (4.3-5.7); RED CELL DISTRIBUTION WIDTH 16.3 % (11.7-14.4)
[2018-08-26 14:03] LABS: INR 1.41; PROTHROMBIN TIME 17.8 seconds (11.9-14.5)
[2018-08-26 14:04] LABS: PARTIAL THROMBOPLASTIN TIME 38.1 seconds (23.8-35.5)
[2018-08-26 14:09] LABS: ANION GAP 23.9 mmol/L (8-16); CREATININE, SERUM 3.27 mg/dL (0.72-1.25); MAGNESIUM 1.4 MG/DL (1.3-2.1); PHOSPHORUS 6.4 MG/DL (2.3-4.7); POTASSIUM 4.9 mmol/L (3.5-5.1)
[2018-08-26 14:12] LABS: CALCIUM 6.3 mg/dL (8.4-10.2)
[2018-08-26] MEDS ORDERED: CALCIUM GLUCONATE 10% INJ 4.65 MEQ in SODIUM CHLORIDE 0.9% 100 ML IV ONE (15:00)
--- NOTE | 2018-08-26 18:41 | NUR ---
Nutrition Intervention Note RD Recommendation(s) for Physician: -WHEN HEMODYNAMICALLY STABLE AND OFF PRESSORS, rec to initiate continuous TF with Vital HP @10mL/hr, advance as tolerated, to goal rate of 50mL/hr (1200kcal, 105g protein, 1003mL water) -Water flushes per MD -Check labs, gastric tolerance, weight daily -If unable to feed in 5 days, rec to initiate PN Plan of Care: RD following, monitoring for tolerance and adequacy Nutrition reason for involvement: Intubated/ ventilated RD Assessment 08/26 82yo M, who was admitted with complaints of shortness of breath and subsequent cardiac arrest. Pt remained intubated and ventilated. Currently on pressors. Rewarming started. CXR showed pulmonary edema w/ cardiomegaly and pleural effusion. Kidney function has worsened. Visited pt in the room. Per family, pt was recently hospitalized at [facility] for aspiration pneumonia versus pulmonary hypertension. Pt was eating regular texture food with thickened liquids at home. Weight has remained at 200lb. Rec to start feeding only when pt is hemodynamically stable. Principal Problems/Diagnoses: 1. Acute cardiac arrest, status post cardiopulmonary resuscitation. 2. Acute respiratory failure, on ventilator. 3. Acute on chronic kidney failure. 4. Chronic obstructive pulmonary disease exacerbation. PMH: 1. Hypertension. 2. Hyperlipidemia. 3. Diabetes mellitus. 4. COPD. 5. Chronic kidney disease stage 4. 6. Parkinson disease. GI: abdomen soft, non-tender, round Skin: no pressure wound noted Labs: (08/26) BUN 79 H, Creatinine 3.27 H, BUN 79 H, Glucose 132 H, Ca 6.3 H, phos 6.4 H Meds: insulin, IVF, propofol @5.6mL/hr, norepinephrine @15mcg/min, epinephrine @7mcg/min, solu-medrol, Ht: 65in Wt: 200lb BMI: 33.3kg/m2 IBW: 136lb +/- 10% Malnutrition Evaluation (08/26/18) The patient does not meet criteria for a specified degree of malnutrition at this time. Will re-evaluate at follow-up as appropriate. Nutrition Prescription (Diet Order): NPO Estimated Nutritional Needs: Calories: 1001- 1274kcal(11-14kcal/kg/d) Weight used : ABW Protein: 93 124g (1.5-2g/kg/d) Weight used: IBW Diet Adequacy: Not meeting calorie needs, Not meeting protein needs Diet Education Needs Assessment: Diet education not indicated. Nutrition Care Level: mod Nutrition Diagnosis: No nutrition diagnosis at this time. Goal: Patient will meet 75-100% of estimated needs by follow up Progress: N/A Interventions: Composition, Rate, Route Monitoring/Evaluation: Total energy intake, Total protein intake, Formula/Solution, Weight change Signed: Susanna Diaz MS, RD, LD
[2018-08-26 18:57] LABS: BASOPHILS % 0.4 % (0.0-1.0); EOSINOPHILS % 0.4 % (0.0-6.0); HEMATOCRIT 27.5 % (38.2-49.6); HEMOGLOBIN 8.6 g/dL (14.0-18.0); LYMPHOCYTES # (AUTO) 3.7 (1.0-3.2); LYMPHOCYTES % 32.4 % (18.0-39.1); MEAN CORPUSCULAR HEMOGLOBIN 28.4 pg (28-32); MEAN CORPUSCULAR HGB CONC 31.3 g/dL (31-35); MEAN CORPUSCULAR VOLUME 90.8 fL (81-99); MONOCYTES % 8.7 % (4.4-11.3); NEUTROPHILS # (AUTO) 6.5 (2.1-6.9); NEUTROPHILS % 57.2 % (38.7-80.0); PLATELET COUNT 121 x10e3/uL (140-360); RED BLOOD COUNT 3.03 x10e6/uL (4.3-5.7); RED CELL DISTRIBUTION WIDTH 16.5 % (11.7-14.4)
[2018-08-26 19:07] LABS: INR 1.27; PROTHROMBIN TIME 16.5 seconds (11.9-14.5)
[2018-08-26 19:08] LABS: PARTIAL THROMBOPLASTIN TIME 34.9 seconds (23.8-35.5)
[2018-08-26 19:13] LABS: ANION GAP 23.2 mmol/L (8-16); CALCIUM 7.1 mg/dL (8.4-10.2); CREATININE, SERUM 3.53 mg/dL (0.72-1.25); MAGNESIUM 1.9 MG/DL (1.3-2.1); PHOSPHORUS 7.7 MG/DL (2.3-4.7); POTASSIUM 5.2 mmol/L (3.5-5.1)
--- NOTE | 2018-08-26 19:30 | NUR ---
One of pt's daughters informed RN that Family was ready to withdraw care. She asked about the process and explanation was given. Dr Ge was notified, and Dr Acevedo was paged
--- NOTE | 2018-08-26 19:45 | NUR ---
Dr Sheeba Currie (covering for Boccardo) returned page and was notified of family's decision.
--- NOTE | 2018-08-26 20:06 | Progress Note ---
DATE: 08/26/2018 Cardiology Progress Note SUBJECTIVE: The patient remains intubated and sedated. He is being rewarmed from hypothermia protocol. Currently, he remains on Levophed 15 and epinephrine 5. OBJECTIVE: VITAL SIGNS: Temperature 91.7 degrees, pulse 55, respiratory rate 15, blood pressure 104/55, oxygen saturation 96% on mechanical ventilation. GENERAL: Well-developed, well-nourished man, remains intubated and sedated. LUNGS: Clear to auscultation anterior lung davis. No wheezes or crackles. CARDIOVASCULAR: Normal rate, regular rhythm. No murmur. Normal S1, S2. ABDOMEN: Soft, nontender. EXTREMITIES: 2+ pitting edema is present. CARDIAC MEDICATIONS: Levophed drip, epinephrine drip. LABORATORY DATA: WBC 6.52, hemoglobin 8, hematocrit 25.2, platelets 88. Sodium 140, potassium 4.9, chloride 105, CO2 is 16, BUN 79, creatinine 3.27. AST 124, ALT 76. TELEMETRY: Normal sinus rhythm. IMPRESSION: 1. Cardiac arrest, suspect respiratory arrest. 2. Acute respiratory failure, currently intubated. 3. Hypertension. 4. Hyperlipidemia. 5. Diabetes mellitus. 6. Chronic obstructive pulmonary disease. 7. Acute on chronic kidney disease. 8. Elevated troponin. RECOMMENDATIONS: The patient is currently being rewarmed from hypothermia protocol. Await neurology evaluation for prognostication. If the patient has neurologic recovery, we will discuss further ischemic evaluation. In the meantime, continue the medical management with aspirin. Continue supportive care with Levophed and epinephrine. Monitor the patient closely on telemetry. Ventilator management per Pulmonary. The patient is oliguric. Consider Nephrology consultation. Thank you for this consult. We will continue to follow. Connie Costello MD ABS/MODL /[id number]
--- NOTE | 2018-08-26 20:30 | NUR ---
Pt was extubated and all medication support dc'd
[2018-08-26] MEDS ORDERED: MORPHINE SULFATE 2 MG/ML SYR 1ML IV PRN (20:45)
[2018-08-26] MEDS ORDERED: MORPHINE SULFATE INJ 4 MG/ML INJ 1ML IV PRN (20:45)
[2018-08-26] MEDS ORDERED: MORPHINE SULFATE INJ 4 MG/ML INJ 1ML ONE (20:48)
--- NOTE | 2018-08-26 21:02 | NUR ---
Asystole on BS monitor. ER was MD was notified to pronounce.
--- NOTE | 2018-08-26 21:33 | NUR ---
Davina, DR Ge, and Dr Adan notified. Dr. Acevedo (Sheeba Currie) paged.
--- NOTE | 2018-08-26 23:21 | Consultation ---
DATE OF CONSULTATION: 08/26/2018 Neurology Consult Note HISTORY OF PRESENT ILLNESS: Mr. Plascencia is an 82-year-old man with past medical history significant for hypertension, hyperlipidemia, diabetes mellitus, chronic obstructive pulmonary disease, chronic kidney disease stage 4, and Parkinson disease, admitted to [facility] on August 25, 2018, status post cardiac arrest. On the evening prior to admission, the patient was at home with his family. He endorsed progressively worsening shortness of breath to his . After a period of time characterized by gradually worsening tachypnea, the patient stopped breathing. His alerted emergency medical services and began CPR. It is unknown how long it took paramedics to reach the patient's home. Upon the paramedics initial evaluation, Mr. Plascencia was found to be in pulseless electrical activity. Reportedly, the patient was resuscitated per ACLS protocol for over an hour in the field. Upon arrival in the emergency center at [facility], Mr. Plascencia underwent an additional 9 minutes of advanced cardiac life support before spontaneous circulation returned. After the return of spontaneous circulation, Mr. Plascencia was transferred to the intensive care unit at [facility], where hypothermia protocol was initiated. Mr. Plascencia is in the process of being rewarmed. At present, his core body temperature is 35.3 degrees Celsius. nimbex was discontinued approximately 1-1/2 hours prior to neurological examination. Sedation with propofol was discontinued approximately 1 hour prior to neurological examination. A neurological consultation is requested to assess the patient's neurological status. REVIEW OF SYSTEMS: Unable to assess secondary to the patient being comatose. PAST MEDICAL HISTORY: Hypertension, hyperlipidemia, diabetes mellitus, chronic obstructive pulmonary disease, thyroid disease, chronic kidney disease stage 4, depression, and Parkinson disease. PAST SURGICAL HISTORY: Bilateral cataract removal. FAMILY MEDICAL HISTORY: None reported. SOCIAL HISTORY: Mr. Plascencia is . He is retired. There is a prior history of tobacco use, but Mr. Plascencia quit smoking cigarettes approximately 20 years ago. The patient's family members report occasional alcohol use. There is no reported current or prior recreational drug use. HOME MEDICATIONS: Reviewed. Please see the list of home medications available in the electronic medical record. HOSPITAL MEDICATIONS: Reviewed. Please see the list of hospital medications available in the electronic medical record. ALLERGIES: NO KNOWN DRUG ALLERGIES. NO KNOWN FOOD ALLERGIES. NO KNOWN ALLERGIES TO LATEX. NO KNOWN ALLERGIES TO IODINE OR OTHER CONTRAST MATERIALS. PHYSICAL EXAMINATION: VITAL SIGNS: At present, the patient is receiving insulin at 1 unit/hour. He is receiving norepinephrine at 25 mcg/minute and epinephrine at 11 mcg/minute. According to the patient's nurse, the doses of pressors have been titrated upward during the rewarming process. Height 65 inches, weight 200 pounds, BMI 33.3 kg/m2, blood pressure 105/40 mmHg, pulse 73 beats per minute, respiratory rate 15 breaths per minute, oxygen saturation 89% with ventilator settings as follows: Oxygen concentration 100%. PEEP 12 cm water. Respiratory rate 15 breaths per minute. Tidal volume 500 mL. GENERAL: The patient is comatose. Obese. HEENT: Normocephalic and atraumatic. Pupils are unequal, round, but not reactive to light. Moist mucous membranes. NECK: Supple. No appreciable thyromegaly. No appreciable carotid bruits. CARDIOVASCULAR: S1, S2, regular rate and rhythm. No murmurs, rubs, or gallops. RESPIRATORY: Clear to auscultation bilaterally. No wheezes, rhonchi, or rales. EXTREMITIES: The skin is warm and dry. No clubbing or cyanosis. A 2 to 3+ pitting edema is noted over the bilateral lower extremities. The posterior tibial and dorsalis pedis pulses are trace and symmetric. SKIN: No rashes or lesions. NEUROLOGIC: Memory/Attention: The patient is comatose. Cranial Nerves: The left pupil was 6 mm, right pupil 5 mm, and both are nonreactive. Corneal, oculocephalic, and gag reflexes are not intact. The face appears symmetric. Strength: Bulk is normal. There is no response to central or peripheral noxious stimulation. Tone is decreased in both arms and both legs. DTRs: Deep tendon reflexes are absent and symmetric at the triceps, biceps, brachioradialis, patellas, and Achilles. Plantar responses are mute bilaterally. Sensation: Sensation is as per motor exam. Cerebellar: Unable to assess secondary to the patient being comatose. Gait: Unable to assess secondary to the patient being comatose. Speech: Unable to assess secondary to the patient being comatose. Involuntary Movements: None. Pronator Drift: As per motor examination. LABORATORY DATA: The most recent basic metabolic panel is significant for a carbon dioxide of 16, anion gap of 23.9, BUN of 79, creatinine of 3.27, estimated GFR of 18, glucose of 132, and calcium of 6.3. It should be noted, the patient's renal function has gradually worsened during his hospitalization. The patient's liver enzyme have doubled (approximately) during his hospitalization and are now elevated. The CBC with differential and platelets reveals a white blood cell count of 11.33 with 57.2% neutrophils, 32.4% lymphocytes, 8.7% monocytes, 0.4% eosinophils, and 0.4% basophils. The hemoglobin and hematocrit are 8.6 and 27.5, respectively. The platelet count is 121. PT 16.5, INR 1.27, PTT 34.9. A urinalysis collected on August 25, 2018, revealed cloudy urine with 1+ protein, 11-20 red blood cells, 21-50 white blood cells, moderate amorphous sediment, many urine bacteria, and many urine yeast. A urine culture collected on August 25, 2018, reveals no growth at 18 to 24 hours. Blood cultures collected on August 25, 2018, revealed no growth after 24 hours. A sputum culture is growing gram-negative rods. DIAGNOSTIC STUDIES: Echocardiogram on 08/25/2018: Ejection fraction 45%. Concentric left ventricular hypertrophy. Chest x-ray on 08/26/2018: ET tube tip terminates in the mid intrathoracic trachea. Persistent bilateral airspace disease, slightly improved compared to day prior, likely pulmonary edema with mild cardiomegaly and probable small bilateral pleural effusions. ASSESSMENT AND PLAN: Mr. Plascencia is an 82-year-old man with an extensive past medical history, admitted to [facility] on August 25, 2018, status post cardiorespiratory arrest within approximately 80-minute down time prior to return of spontaneous circulation. The patient is status post hypothermia protocol. At the time of this examination, his core temperature is 35.3 degrees Celsius. At the time of this neurological evaluation, he has been off Nimbex for approximately 90 minutes and off propofol for approximately 1 hour. Unfortunately, Mr. Plascencia's neurological examination shows no evidence of an intact brain stem or higher cerebral function. Clinically, the patient is brain . The findings of my neurological examination as well as the most recent diagnostic studies were discussed in detail with the family as were the implications of these findings. Mr. Plascencia's family members were given the opportunity to ask questions, and all questions were answered to their satisfaction. Following a detailed discussion, the family did decide to initiate comfort care measures. At approximately 2130 hours on August 26, 2018, I was informed by the patient's ICU nurse that he had . Thank you for this consultation. TIME SPENT: 70 minutes. Hilaria Adan MD CP/ESSENCE /[id number]
--- NOTE | 2018-08-27 02:35 | NUR ---
Pulmonary Medicine DATE OF ENCOUNTER: 08/26/2018 SUBJECTIVE: STARTED warming procedures in the morning. propofol was on and nimbex too. as patient warmed he was shown to have a poor neurologic exam. later the family decided to withdraw life support. Kidneys with dense ATN, didnt respond to more bumex nor to mannitol. REVIEW OF SYSTEMS: Cannot get as he is altered. OBJECTIVE: VITAL SIGNS: The patient's vitals reviewed per the chart record, unstable. GENERAL: The patient was paralyzed, intubated on ventilator earlier LUNGS: fair rhonchi. EXTREMITIES: The patient with 2 to 3+ edema. Some leg edema. LABORATORY DATA: multiple labs as reviewed per the electronic record. IMPRESSION: 1. Acute cardiac arrest, status post CPR. 2. Acute respiratory failure, on ventilator. 3. Acute on chronic kidney failure. 4. Chronic obstructive pulmonary disease/asthma. 5. Hypertension. 6. Hyperlipidemia. 7. History of Parkinson disease. 8. Baseline debility/weakness. 9. Secondary pulmonary hypertension. 10. Recent prednisone use. 11. Abnormal location of left central line. 12. Right pneumonia, aspiration versus other. Acquired prior to admission. Continue current treatment. Continue ventilator. Pressos. We tried to maintain kidney perfusion unsuccessfully, multiple interventions. Neurologic prognostication-- poor. Later the family opted for withdrawal of life support. Thank you very much, Dr. Acevedo for allowing me a chance to participate in the care of Mr. Plascencia. Please call for questions. . Greater than 30 minutes in direct care and multiple follow-ups during 2 night shifts and day shift.
--- NOTE | 2018-09-13 12:10 | Discharge Summary ---
HOSPITAL COURSE: Mr. Plascencia was an 82-year-old man with history of chronic kidney disease stage 4, COPD, hypertension, hyperlipidemia, who was at home and had like a syncopal episode, became unresponsive. They started doing CPR, came to the emergency room where they continue CPR. He was intubated and transferred to ICU with a very poor prognosis. He was seen by Dr. Adan, who evaluate the patient and she stated that the patient was clinically brain , so there was a discussion in detail with his family. They had opportunity to ask questions and after that the family decided to extubate the patient and remove all the artificial measures and just comfort care measures. The patient on August 26 around 9:[address] Gerard Currie was covering for me and as per the nurse report the patient was extubated and all medications were DC. He went to asystole on the monitor. ER was notified to pronounce the patient. Dr. Currie covering for me was called. EXPIRATION DIAGNOSES: 1. Anoxic encephalopathy. 2. Acute cardiac arrest status post resuscitation. 3. Acute respiratory failure. 4. Acute on chronic kidney disease. 5. Chronic obstructive pulmonary disease exacerbation. 6. History of hypertension. 7. Hyperlipidemia. 8. Parkinson disease. 9. Right-sided pneumonia probably due to aspiration. Like I said before, Dr. Adan saw the patient and he found that clinically the patient was brain . She discussed with the family, the family decided to extubate and removal all the lines and just comfort care and the patient went into asystole. He on August 26 around 9:00 p.m. ER doctor was called to pronounce the patient. Dr. Currie was covering for me and he was informed that the patient . MD SARIKA Coppola/ESSENCE /[id number]
== END 2018-08-26 21:02 | disposition expired | DRG 208 ==
LOC: ER 01:10 → ERHOLD 03:51 → ICU 04:00 → UNDODISIN 08-27 00:07
PROVIDERS: ADMIT Internal Medicine; ATTEND Internal Medicine
PROC: 0BH18EZ Insertion of Endotracheal Airway into Trachea, Via Natural or Artificial Opening Endoscopic (ICD-10-PCS; principal; 2018-08-25)
PROC: 5A1945Z Respiratory Ventilation, 24-96 Consecutive Hours (ICD-10-PCS; 2018-08-25)
PROC: 05H433Z Insertion of Infusion Device into Left Innominate Vein, Percutaneous Approach (ICD-10-PCS; 2018-08-25)
PROC: 3E043XZ Introduction of Vasopressor into Central Vein, Percutaneous Approach (ICD-10-PCS; 2018-08-25)
PROC: 5A12012 Performance of Cardiac Output, Single, Manual (ICD-10-PCS; 2018-08-25)
PROC: 0D9670Z Drainage of Stomach with Drainage Device, Via Natural or Artificial Opening (ICD-10-PCS; 2018-08-25)
PROC: 04HY32Z Insertion of Monitoring Device into Lower Artery, Percutaneous Approach (ICD-10-PCS; 2018-08-25)
PROC: 6A4Z0ZZ Hypothermia, Single (ICD-10-PCS; 2018-08-25)
DX: J96.90 Respiratory failure, unspecified, unspecified whether with hypoxia or hypercapnia (principal); J69.0 Pneumonitis due to inhalation of food and vomit; N17.0 Acute kidney failure with tubular necrosis; R40.20 Unspecified coma; N18.4 Chronic kidney disease, stage 4 (severe); J44.1 Chronic obstructive pulmonary disease with (acute) exacerbation; G93.1 Anoxic brain damage, not elsewhere classified; I46.9 Cardiac arrest, cause unspecified; E11.22 Type 2 diabetes mellitus with diabetic chronic kidney disease; I12.9 Hypertensive chronic kidney disease with stage 1 through stage 4 chronic kidney disease, or unspecified chronic kidney disease; Z51.5 Encounter for palliative care; Z66 Do not resuscitate; E78.5 Hyperlipidemia, unspecified; G20 Parkinson's disease; R74.8 Abnormal levels of other serum enzymes; G47.33 Obstructive sleep apnea (adult) (pediatric); I27.20 Pulmonary hypertension, unspecified; R53.81 Other malaise; R53.1 Weakness; E87.5 Hyperkalemia; Z87.891 Personal history of nicotine dependence; Z99.81 Dependence on supplemental oxygen
CPT/HCPCS: 31500; 36415; 36600; 51700; 71045; 80048; 80053; 80076; 81001; 82550; 82553; 82805; 82948; 83605; 83615; 83735; 83880; 84100; 84484; 85025; 85610; 85730; 87040; 87070; 87086; 87186; 87205; 92950; 93005; 93306; 94002; 94640; 99285; J0171; J0610; J0692; J1817; J2150; J2270; J2920; J2930; J3370; J7030; J7040; J7050; J7070